=== PATIENT | female | born 1965 | race Caucasian/White ===

== ENCOUNTER → 2016-12-22 | Outpatient (CLI) | payer BC | LOC: BMCIMAGING 15:48 | PROVIDERS: ATTEND Nurse Practitioner Adult Health | DX: R06.02 Shortness of breath (principal); R53.83 Other fatigue; Z87.891 Personal history of nicotine dependence ==

== ENCOUNTER 2017-08-17 11:45 | Emergency (ER) | payer BC ==
[2017-08-17] MEDS ORDERED: ONDANSETRON 4 MG/2 ML VIAL IVP ONE ×2 (12:35→15:47)
[2017-08-17] MEDS ORDERED: NS 1,000 ML IV ONE (12:39)
--- NOTE | 2017-08-17 12:43 | CPEKG ---
Heart Rate: 104 RR Interval: 577 P-R Interval: 200 QRSD Interval: 88 QT Interval: 344 QTC Interval: 453 P [place]: 54 QRS [place]: -8 T Wave [place]: 194 EKG Severity - ABNORMAL ECG - EKG Impression: SINUS TACHYCARDIA EKG Impression: NONSPECIFIC REPOL ABNORMALITY, DIFFUSE LEADS Electronically Signed By: Coy Gonzalez 18-Aug-2017 08:05:39
[2017-08-17 12:45] LABS: PLATELET COUNT 292 10^3/uL (150-400)
--- NOTE | 2017-08-17 12:50 | EDPHY ---
HPI/HX/ROS/PE/MDM - Data Points Imaging: Discussed imaging studies w/ province archivist Radiologist, I viewed and interpreted images myself Narrative: CHIEF COMPLAINT: Abdominal pain, vomiting. HPI: This patient is a 52 year old female complaining of abdominal pain and vomiting. She has felt unwell for three days with a stomach ache. Her discomfort is primarily epigastric. She is unable to describe the quality of the pain. It is constant. She has associated nausea and vomiting. No hematemesis. She has had minimal bowel movements as she has not eaten much, but denies diarrhea, hematochezia, or melena. She denies fever. No recent international travel or unusual food consumption. REVIEW OF SYSTEMS: Aside from elements discussed in the HPI, a comprehensive 10-point review of systems was reviewed and is negative. PMH: Sinus surgery. Tonsillectomy. Colostomy in 1989 for perforated bowel. SOCIAL HISTORY: Daily tobacco use. PCP Dr. Anderson PHYSICAL EXAM: General:Patient is alert, in no acute distress. ENT:Eyes are normal to inspection. ENT inspection normal. Neck: Normal inspection. Full range of motion. Respiratory:No respiratory distress. Breath sounds normal bilaterally. Cardiovascular: Regular rate and rhythm. Strong peripheral pulses. Normal cap refill. Abdomen: Moderate epigastric pain. There are no peritoneal signs. There are normal bowel sounds. Back: Normal to inspection. No tenderness to palpation. Skin: Normal color. No rash. Warm and dry. Extremities: Normal appearance. Full range of motion. Neuro: Oriented x3. Normal motor function. Normal sensory function. (Michael Herrera) ED Course: 52 year old female presents with three day history of abdominal pain and vomiting. Moderate epigastric pain on exam. Plan for labs including CBC, chemistries, liver, lipase, BHCG. Plan to administer 30mg IV Toradol, 4mg IV Zofran, and 1L IV NS for symptom relief. Plan for EKG, x-ray abdomen. EKG was ordered and interpreted by myself. Please see [facility] system for official reading. 14:[address] abdomen/pelvis for further evaluation. (Michael Herrera) MDM: I assumed care of the patient at 3:40 a.m. pending an abdominal ultrasound. The patient's ultrasound demonstrates no evidence of cholecystitis. She does have cholelithiasis. I re-evaluated the patient and find no right upper quadrant tenderness. Her LFTs are normal. The patient tells me she does have mild intermittent nausea and vomiting and has Zofran at home. This point time I do feel the patient can be discharged home with instructions to continue Zofran. She is discharged home with customary abdominal pain aftercare instructions. (Herbert Le) - Data Points Imaging Results: Imaging Impressions Abdomen X-Ray 08/17/17 12:57 Impression: 1. Mild constipation, with an otherwise nonspecific bowel gas pattern. 2. Query mild hepatomegaly. Abdomen CT 08/17/17 14:05 Impression: 1. Minimal prominence of the common bile duct without intrahepatic biliary dilatation. 2. Cholelithiasis without evidence of cholecystitis. 3. Constipation 4. Short segment small bowel intussusception in the left abdomen, [a common self -limited] incidental finding on CT, without evidence of obstruction. 5. Additional findings as above. Findings discussed with Michael Herrera MD, 08/17/2017 at 15:40. Abdomen Ultrasound 08/17/17 15:45 Impression: 1. Cholelithiasis without evidence cholecystitis 2. Normal caliber of the visualized common bile duct on ultrasound. 3. Enlarged fatty liver. Findings discussed with Magdiel Le MD, 08/17/2017 at 16:30. Laboratory Results: Laboratory Results 08/17/17 12:26 08/17/17 12:26 08/17/17 08/17/17 08/17/17 12:26 12:26 12:26 WBC RBC Hgb Hct MCV MCH MCHC RDW Plt Count MPV Neut % (Auto) Lymph % (Auto) Weld % (Auto) Eos % (Auto) Baso % (Auto) Nucleat RBC Rel Count Absolute Neuts (auto) Absolute Lymphs (auto) Absolute Monos (auto) Absolute Eos (auto) Absolute Basos (auto) Absolute Nucleated RBC Immature Gran % Immature Gran # Sodium 141 mEq/L mEq/L (135-145) Potassium 3.4 mEq/L L mEq/L (3.5-5.2) Chloride 100 mEq/L mEq/L (97-110) Carbon Dioxide 26 mEq/l mEq/l (22-31) Anion Gap 15 mEq/L mEq/L (8-16) BUN 25 mg/dL H mg/dL (7-23) Creatinine 0.6 mg/dL mg/dL (0.6-1.0) Estimated GFR > 60 Glucose 208 mg/dL H mg/dL (70-100) Calcium 10.1 mg/dL mg/dL (8.5-10.4) Total Bilirubin 0.8 mg/dL mg/dL (0.1-1.4) Conjugated Bilirubin 0.4 mg/dL mg/dL (0.0-0.5) Unconjugated Bilirubin 0.4 mg/dL mg/dL (0.0-1.1) AST 30 IU/L IU/L (14-46) ALT 40 IU/L IU/L (9-52) Alkaline Phosphatase 93 IU/L IU/L (38-126) Total Protein 7.6 g/dL g/dL (6.3-8.2) Albumin 4.8 g/dL g/dL (3.5-5.0) Lipase 62 IU/L IU/L (23-300) Beta HCG, Qual NEGATIVE 08/17/17 12:26 WBC 13.87 10^3/uL H 10^3/uL (3.80-9.50) RBC 5.51 10^6/uL H 10^6/uL (4.18-5.33) Hgb 16.9 g/dL H g/dL (12.6-16.3) Hct 46.6 % % (38.0-47.0) MCV 84.6 fL fL (81.5-99.8) MCH 30.7 pg pg (27.9-34.1) MCHC 36.3 g/dL g/dL (32.4-36.7) RDW 11.5 % % (11.5-15.2) Plt Count 292 10^3/uL 10^3/uL (150-400) MPV 10.2 fL fL (8.7-11.7) Neut % (Auto) 81.9 % H % (39.3-74.2) Lymph % (Auto) 10.0 % L % (15.0-45.0) Weld % (Auto) 7.4 % % (4.5-13.0) Eos % (Auto) 0.0 % L % (0.6-7.6) Baso % (Auto) 0.2 % L % (0.3-1.7) Nucleat RBC Rel Count 0.0 % % (0.0-0.2) Absolute Neuts (auto) 11.36 10^3/uL H 10^3/uL (1.70-6.50) Absolute Lymphs (auto) 1.39 10^3/uL 10^3/uL (1.00-3.00) Absolute Monos (auto) 1.02 10^3/uL H 10^3/uL (0.30-0.80) Absolute Eos (auto) 0.00 10^3/uL L 10^3/uL (0.03-0.40) Absolute Basos (auto) 0.03 10^3/uL 10^3/uL (0.02-0.10) Absolute Nucleated RBC 0.00 10^3/uL 10^3/uL (0-0.01) Immature Gran % 0.5 % % (0.0-1.1) Immature Gran # 0.07 10^3/uL 10^3/uL (0.00-0.10) Sodium Potassium Chloride Carbon Dioxide Anion Gap BUN Creatinine Estimated GFR Glucose Calcium Total Bilirubin Conjugated Bilirubin Unconjugated Bilirubin AST ALT Alkaline Phosphatase Total Protein Albumin Lipase Beta HCG, Qual Medications Given: Discontinued Medications Sodium Chloride (Ns) 1,000 mls @ 0 mls/hr IV ONCE ONE PRN Reason: Wide Open Stop: 08/17/17 12:40 Last Admin: 08/17/17 12:48 Dose: 1,000 mls Ketorolac Tromethamine (Toradol) 15 mg IVP EDNOW ONE Stop: 08/17/17 13:00 Last Admin: 08/17/17 13:28 Dose: 15 mg Ketorolac Tromethamine (Toradol) 15 mg IVP EDNOW ONE Stop: 08/17/17 15:48 Last Admin: 08/17/17 16:33 Dose: 15 mg Ondansetron HCl (Zofran) 4 mg IVP EDNOW ONE Stop: 08/17/17 12:36 Last Admin: 08/17/17 12:39 Dose: 4 mg Ondansetron HCl (Zofran) 4 mg IVP EDNOW ONE Stop: 08/17/17 15:48 Last Admin: 08/17/17 16:31 Dose: 4 mg General Time Seen by Provider: 08/17/17 12:49 Initial Vital Signs: Initial Vital Signs Temperature (C) 36.5 C 08/17/17 11:54 Heart Rate 111 H 08/17/17 11:54 Respiratory Rate 19 08/17/17 11:54 Blood Pressure 187/145 H 08/17/17 11:54 O2 Sat (%) 96 08/17/17 11:54 O2 Delivery Mode Room Air Allergies/Adverse Reactions: No Known Allergies Allergy (Unverified 08/17/17 11:49) Home Medications: Medication Instructions Recorded Cogentin 08/17/17 Colace 08/17/17 Enlyte 08/17/17 Fetzima 08/17/17 Klonopin 08/17/17 Lisinopril 08/17/17 Metformin HCl 08/17/17 Ondansetron Odt [Zofran Odt] 4 mg PO Q4PRN PRN #20 tab 08/17/17 Ondansetron Odt [Zofran Odt] 4 mg PO Q4PRN PRN #20 tab 08/17/17 Prilosec 08/17/17 Synthroid 08/17/17 Tegretol 08/17/17 Vraylar 08/17/17 traZODone 08/17/17 Departure - Departure Disposition: Home, Routine, Self-Care Clinical Impression: Abdominal pain Condition: Good Instructions: Abdominal Pain (ED) Additional Instructions: Sometimes we are unable to diagnose an obvious cause of abdominal pain in the Emergency Department. Based upon our evaluation today, I believe your vomiting is secondary to a possible viral intestinal infection. Because more serious conditions can be difficult to diagnose early in the course of their presentation, we ask that you return to the Emergency Department in 8-12 hours for a recheck if you are still having pain. This is necessary to exclude the development of a more serious condition such as appendicitis or other intra- abdominal emergency. In the event your pain markedly increases before that time or you develop intractable vomiting or fever return to the Emergency Department immediately. Please continue Zofran as needed for nausea. Please follow-up with your primary care provider for any unimproved symptoms. I do recommend beginning Zantac 150 mg twice daily. This medication is available [id number]. Referrals: Swetha Anderson MD [Primary Care Provider] - As per Instructions Report Scribed for: Michael Herrera Report Scribed by: Cassy Lynn Date of Report: 08/17/17 Time of Report: 12:57 Physician Review and Approval Statement: Portions of this note were transcribed by an ED scribe. I personally performed the history, physical exam, and medical decision making; and confirm the accuracy of the information in the transcribed note.
[2017-08-17] MEDS ORDERED: KETOROLAC 30 MG/1 ML SDV IVP ONE ×2 (12:59→15:47)
[2017-08-17 13:36] VITALS: RESP 18; O2SAT 94
[2017-08-17] MEDS ORDERED: IOPAMIDOL (ISOVUE-300) 100 ML BTL ONE (14:19)
[2017-08-17 16:40] VITALS: BP 180/100; PULSE 97; TEMP 98.4
== END 2017-08-17 17:01 | disposition home or self-care (01) ==
DX: R10.13 Epigastric pain (principal); F17.200 Nicotine dependence, unspecified, uncomplicated
CPT/HCPCS: 96374; J1885; J2405; Q9967

== ENCOUNTER 2017-08-18 15:22 | Emergency (ER) | payer BC ==
[2017-08-18] MEDS ORDERED: HYDROmorphONE/DILAUDID 2 MG/ML INJ IVP ONE (15:42)
--- NOTE | 2017-08-18 16:33 | EDPHY ---
H & P Time Seen by Provider: 08/18/17 15:39 HPI/ROS: CHIEF COMPLAINT: Fatigue, nausea body admitting, body pain HISTORY OF PRESENT ILLNESS: The patient is a 50-year-old female who presents to the emergency department with ongoing symptoms. She was seen in the emergency department yesterday. She had a workup was told to return if her symptoms did not improve. She states she still has all of her symptoms. She complains of mild abdominal pain with nausea and vomiting. No hematemesis. She vomited once last evening. She states that she has diffuse"body pain."No fevers or chills. No shortness of breath or chest pain. No rash. Patient was also concerned because she has been having ongoing hypertension. She missed her hypertensive medications on Tuesday and Tuesday due to her vomiting. She states she took her medication yesterday. The patient states that the Zofran she was discharged with his not working. REVIEW OF SYSTEMS: My complete review of systems is negative except as mentioned in the HPI. Past Medical/Surgical History: Includes bowel perforation. Previous alcohol abuse Past surgical history: Sinus surgery, tonsillectomy, colostomy Social history: The patient states she smokes cigarettes. She denies drugs or alcohol Smoking Status: Current every day smoker Physical Exam: 36.6, 171/122, 99, 18, 94% on room air GENERAL: Well-appearing, in no acute distress, alert. HEENT: Eyes normal to inspection, normal pharynx, no signs of dehydration. NECK: No thyromegaly, no lymphadenopathy, supple. RESPIRATORY: Clear to auscultation bilaterally, no rales, rhonchi or wheezing. CVS: Regular rate and rhythm, no rubs, murmurs, or gallops. ABDOMEN: Soft, nontender, nondistended, no organomegaly. Benign BACK: Normal to inspection, no CVA tenderness. SKIN: Normal color, no rash, warm, dry. No pallor. EXTREMITIES: No pedal edema, no calf tenderness, no joint swelling. NEURO/PSYCH: Alert and oriented, normal mood and affect, normal motor sensory exam. Constitutional: Initial Vital Signs Temperature (C) 36.6 C 08/18/17 15:24 Heart Rate 99 08/18/17 15:24 Respiratory Rate 18 08/18/17 15:24 Blood Pressure 171/122 H 08/18/17 15:24 O2 Sat (%) 94 08/18/17 15:24 O2 Delivery Mode Room Air Allergies/Adverse Reactions: No Known Allergies Allergy (Verified 08/18/17 15:24) Home Medications: Medication Instructions Recorded Cogentin 08/17/17 Colace 08/17/17 Enlyte 08/17/17 Fetzima 08/17/17 Klonopin 08/17/17 Lisinopril 08/17/17 Metformin HCl 08/17/17 Ondansetron Odt [Zofran Odt] 4 mg PO Q4PRN PRN #20 tab 08/17/17 Ondansetron Odt [Zofran Odt] 4 mg PO Q4PRN PRN #20 tab 08/17/17 Prilosec 08/17/17 Synthroid 08/17/17 Tegretol 08/17/17 Vraylar 08/17/17 traZODone 08/17/17 Promethazine HCl [Phenergan 12.5mg 12.5 mg PO Q6 #7 tablet 08/18/17 tab] Medical Decision Making ED Course/Re-evaluation: In the emergency department I discussed plan with the patient. I answered all her questions. IV was placed. Laboratory studies were obtained. Patient was given normal saline 1 L IV for hydration. She is given Zofran 4 mg IV for nausea. I reviewed the patient's imaging studies from yesterday. CT scan showed minimal prominence of common bile duct without intrahepatic biliary dilatation. There is cholelithiasis without evidence of cholecystitis. She also had constipation. Patient had short-segment small-bowel intussusception in the left abdomen. States this is a common into the finding on CT without evidence of obstruction. I reviewed the patient's ultrasound. This also showed cholelithiasis without evidence of cholecystitis. There is a fatty liver. [place] [address]. Patient's white count was 11.7. Patient's hematocrit is 47. This is improved from yesterday. Patient's chemistry panel was unremarkable. was negative. 183: The patient is feeling better. On repeat exam she appeared well. Her abdomen soft, nontender nondistended. I discussed all results. I answered her questions. She requested medication different from Zofran because she did not feel that worked last evening. She is given a prescription for Phenergan. She is given warnings prior to leaving. She will return with worsening symptoms. Differential Diagnosis: My differential includes but is not limited to hypertension, hypertensive urgency, hypertensive emergency, viral illness, small-bowel obstruction, perforation, electrolyte abnormality, sugar abnormality - Data Points Laboratory Results: Laboratory Results 08/18/17 17:34 18 17:34 08/18/17 08/18/17 08/18/17 17:34 17:34 17:34 WBC 11.77 10^3/uL H 10^3/uL (3.80-9.50) RBC 5.66 10^6/uL H 10^6/uL (4.18-5.33) Hgb 17.3 g/dL H g/dL (12.6-16.3) Hct 47.7 % H % (38.0-47.0) MCV 84.3 fL fL (81.5-99.8) MCH 30.6 pg pg (27.9-34.1) MCHC 36.3 g/dL g/dL (32.4-36.7) RDW 11.4 % L % (11.5-15.2) Plt Count 286 10^3/uL 10^3/uL (150-400) MPV 9.9 fL fL (8.7-11.7) Neut % (Auto) 67.1 % % (39.3-74.2) Lymph % (Auto) 22.6 % % (15.0-45.0) [place] % (Auto) 9.2 % % (4.5-13.0) Eos % (Auto) 0.2 % L % (0.6-7.6) Baso % (Auto) 0.6 % % (0.3-1.7) Nucleat RBC Rel Count 0.0 % % (0.0-0.2) Absolute Neuts (auto) 7.90 10^3/uL H 10^3/uL (1.70-6.50) Absolute Lymphs (auto) 2.66 10^3/uL 10^3/uL (1.00-3.00) Absolute Monos (auto) 1.08 10^3/uL H 10^3/uL (0.30-0.80) Absolute Eos (auto) 0.02 10^3/uL L 10^3/uL (0.03-0.40) Absolute Basos (auto) 0.07 10^3/uL 10^3/uL (0.02-0.10) Absolute Nucleated RBC 0.00 10^3/uL 10^3/uL (0-0.01) Immature Gran % 0.3 % % (0.0-1.1) Immature Gran # 0.04 10^3/uL 10^3/uL (0.00-0.10) Sodium 137 mEq/L mEq/L (135-145) Potassium 3.5 mEq/L mEq/L (3.5-5.2) Chloride 97 mEq/L mEq/L (97-110) Carbon Dioxide 27 mEq/l mEq/l (22-31) Anion Gap 13 mEq/L mEq/L (8-16) BUN 22 mg/dL mg/dL (7-23) Creatinine 0.7 mg/dL mg/dL (0.6-1.0) Estimated GFR > 60 Glucose 141 mg/dL H mg/dL (70-100) Calcium 9.7 mg/dL mg/dL (8.5-10.4) Total Bilirubin 0.8 mg/dL mg/dL (0.1-1.4) Conjugated Bilirubin 0.3 mg/dL mg/dL (0.0-0.5) Unconjugated Bilirubin 0.5 mg/dL mg/dL (0.0-1.1) AST 30 IU/L IU/L (14-46) ALT 47 IU/L IU/L (9-52) Alkaline Phosphatase 88 IU/L IU/L (38-126) Total Protein 7.3 g/dL g/dL (6.3-8.2) Albumin 4.7 g/dL g/dL (3.5-5.0) Lipase 100 IU/L IU/L (23-300) Beta HCG, Qual NEGATIVE Medications Given: Discontinued Medications Hydromorphone HCl (Dilaudid) 0.5 mg IVP EDNOW ONE Stop: 08/18/17 15:43 Last Admin: 08/18/17 15:43 Dose: Not Given Sodium Chloride (Ns) 500 mls @ 0 mls/hr IV EDNOW ONE; Wide Open PRN Reason: Protocol Stop: 08/18/17 17:08 Last Admin: 08/18/17 17:37 Dose: 500 mls Departure - Departure Disposition: Home, Routine, Self-Care Clinical Impression: Body aches Nausea & vomiting Qualifiers: Vomiting type: unspecified Vomiting Intractability: non-intractable Qualified Code(s): R11.2 - Nausea with vomiting, unspecified Abdominal pain Qualifiers: Abdominal location: generalized Qualified Code(s): R10.84 - Generalized abdominal pain Condition: Good Instructions: Acute Nausea and Vomiting (ED) Additional Instructions: Return with increasing pain, repeated vomiting, or any other concerns. Referrals: Swetha Anderson MD [Primary Care Provider] - As per Instructions Prescriptions: Promethazine HCl [Phenergan 12.5mg tab] 12.5 mg PO Q6 #7 tablet
[2017-08-18] MEDS ORDERED: NS 500 ML IV ONE (17:07)
[2017-08-18 17:45] LABS: PLATELET COUNT 286 10^3/uL (150-400)
[2017-08-18 18:56] VITALS: BP 170/82
== END 2017-08-18 18:56 | disposition home or self-care (01) ==
DX: R11.2 Nausea with vomiting, unspecified (principal); E86.9 Volume depletion, unspecified; F17.210 Nicotine dependence, cigarettes, uncomplicated; R10.84 Generalized abdominal pain

== ENCOUNTER 2017-08-27 14:10 | Inpatient (IN) | payer BC ==
[2017-08-27] MEDS ORDERED: NS 1,000 ML IV ONE ×2 (14:20→15:16)
--- NOTE | 2017-08-27 14:30 | CPEKG ---
Heart Rate: 126 RR Interval: 476 P-R Interval: 160 QRSD Interval: 104 QT Interval: 308 QTC Interval: 446 P Austin: -62 QRS [place]: -10 T Wave [place]: 194 EKG Severity - ABNORMAL ECG - EKG Impression: SINUS OR ECTOPIC ATRIAL TACHYCARDIA EKG Impression: PROBABLE LVH WITH SECONDARY REPOL ABNRM EKG Impression: EKG shows sinus tachycardia with a rate of 126, left axis, LVH, nonspecific EKG Impression: T-wave abnormality Re pole abnormality. No signs of acute infarct or ischemia. EKG Impression: Impression abnormal, nonspecific EKG. Electronically Signed By: Lauren Carter 30-Aug-2017 06:05:30
--- NOTE | 2017-08-27 14:33 | EDPHY ---
General - History Smoking Status: Current every day smoker Time Seen by Provider: 08/27/17 14:22 Narrative: CHIEF COMPLAINT: High blood pressure, nausea vomiting HISTORY OF PRESENT ILLNESS: Patient presents by EMS and is seen at time of arrival. She complains of some recent nausea and vomiting with epigastric discomfort. She has had some constipation but no diarrhea. At this time she denies any abdominal pain or any complaints of any kind as her nausea is improved throughout the day. She arrives from [facility] with reports of high blood pressure over the past 2 weeks. She has had systolic measurements in the 170-1 days. She has had diastolic measurement the size 130 mm mercury. She has no complaints of headache. No chest pain. No shortness of breath. No cough. No sore throat. She has had some malaise, fatigue and mild myalgia. She has been evaluated here twice on August 17 August 18 for her abdominal complaints. She had laboratory studies, CT scan of the abdomen, ultrasound the abdomen. No definitive diagnosis. Medications she was discharged with were helping her nausea vomiting. No other associated complaints or modifying factors. REVIEW OF SYSTEMS: Ten systems reviewed and are negative unless otherwise noted in the HPI PCP: Dr. Anderson SPECIALISTS: Mental health professional PAST MEDICAL HISTORY: Hypertension, bipolar disorder PAST SURGICAL HISTORY: No recent surgeries SOCIAL HISTORY: Daily smoker. No drug or alcohol use FAMILY HISTORY: Noncontributory EXAMINATION General Appearance: Alert, no distress Head: normocephalic, atraumatic Eyes: Pupils equal and round, no conjunctival pallor or injection ENT, Mouth: Mucous membranes moist Neck: Normal inspection, supple, non-tender Respiratory: Lungs are clear to auscultation Cardiovascular: Tachycardic rate. Regular rhythm. No murmur. Gastrointestinal: Abdomen is soft and nondistended. No tympany rigidity. Mild epigastric tenderness. Back: non-tender, no bony abnormalities Neurological: A&O, nonfocal, normal gait Skin: Warm and dry, no rash no petechiae or purpura Extremities: Nontender, no pedal edema Psychiatric: Mood and affect normal DIFFERENTIAL DIAGNOSES: Including but not limited to pancreatitis, cholecystitis, cholelithiasis, ACS, PE, influenza, viral illness MDM: 2:20 p.m. Mild nausea but no vomiting. No complaints of pain at this time. She does have generalized malaise and fatigue. She has had recent complaints of nausea vomiting with 2 evaluations here on August 17 and . No trauma or injury. She denies any drug or alcohol use. No chest pain of any kind. Vital signs reveal tachycardia and hypertension but no headache. No chest pain. 3:15 p.m. Case discussed with Dr. Xiong. She will evaluate the patient. 3:45 p.m. Patient has been evaluated by Dr. Xiong. She recommends D-dimer and chest x- ray due to some dyspnea on exertion. Laboratory studies do reveal evidence of urinary tract infection, she recommends treatment with IV Rocephin. Troponin is very slightly elevated. CBC is unremarkable. Liver function test minimally abnormal. I have ordered urinary culture and IV Rocephin. 4:15 p.m. D-dimer negative. Chest x-ray unremarkable. Patient's heart rate has minimally improved with IV fluid. I do feel that she will need admission to the hospital for further evaluation. 4:30 p.m. I discussed case with the hospitalist Dr. Wang. She will admit the patient to her service. She is admitted in stable condition. Admitted for urinary tract infection, dehydration, abnormal troponin. SUPERVISION: Patient was evaluated and examined in conjunction with my secondary supervising physician as documented. We have both examined the patient. (Bert Trujillo) PHYSICIAN DOCUMENTATION: The patient initially seen and evaluated by KEON Levi with complaint of nausea vomiting. Please see their dictation for complete details. Additionally I obtained the following history: Patient with some shortness of breath also dysuria. Persistent systems and has been seen several times in the emergency department On my examination I found the following: Patient ill appearing, tachycardic. Very abnormal UA. EKG shows sinus tachycardia with a rate of 126. Left axis, nonspecific T-wave changes diffusely. Probable LVH. No signs of acute infarct or ischemia. Impression abnormal, nonspecific EKG. The midlevel and I discussed the care and disposition of the patient. I authorize my typed signature that I authenticated this report. (Larisa Xiong) - Diagnostics Imaging Results: Imaging Impressions Chest X-Ray 08/27/17 15:44 Impression: No acute abnormality, or substantial change from 12/22/2016. - Objective Vital Signs: Initial Vital Signs Temperature (C) 37 C 08/27/17 14:21 Heart Rate 115 H 08/27/17 14:21 Respiratory Rate 18 14/18 14:21 Blood Pressure 139/100 H 08/27/17 14:21 O2 Sat (%) 95 08/27/17 14:21 O2 Delivery Mode Room Air Allergies/Adverse Reactions: bee venom protein (honey bee) Allergy (Verified 08/27/17 14:21) Home Medications: Medication Instructions Recorded Benztropine Mesylate [Cogentin 1 mg PO BID 08/27/17 (RX)] Cariprazine HCl [Vraylar] 1.5 mg PO HS 08/27/17 Docusate Sodium [Colace 100 MG (*)] 100 mg PO BID 08/27/17 Levomilnacipran HCl [Fetzima] 20 mg PO DAILY 08/27/17 Levomilnacipran HCl [Fetzima] 40 mg PO DAILY 08/27/17 Levothyroxine [Synthroid 25 mcg 25 mcg PO DAILY06 08/27/17 (*)] Lisinopril [Zestril 20 mg (*)] 20 mg PO DAILY 08/27/17 Metformin HCl [Metformin 1000 mg] 1,000 mg PO BIDMEAL 08/27/17 Omeprazole 20 mg PO HS 08/27/17 Promethazine HCl [Phenergan 12.5mg 12.5 mg PO Q6 PRN 08/27/17 tab] carBAMazepine [Tegretol] 200 mg PO BID 08/27/17 clonazePAM [Clonazepam] 1.5 mg PO HS 08/27/17 traZODone [traZODONE 100MG (*)] 200 mg PO HS 08/27/17 Laboratory Results: Laboratory Results 08/27/17 14:40 08/27/17 14:40 08/27/17 08/27/17 08/27/17 14:40 14:40 14:40 WBC 8.18 10^3/uL 10^3/uL (3.80-9.50) RBC 5.46 10^6/uL H 10^6/uL (4.18-5.33) Hgb 16.8 g/dL H g/dL (12.6-16.3) Hct 46.0 % % (38.0-47.0) MCV 84.2 fL fL (81.5-99.8) MCH 30.8 pg pg (27.9-34.1) MCHC 36.5 g/dL g/dL (32.4-36.7) RDW 11.5 % % (11.5-15.2) Plt Count 236 10^3/uL 10^3/uL (150-400) MPV 10.8 fL fL (8.7-11.7) Neut % (Auto) 79.5 % H % (39.3-74.2) Lymph % (Auto) 14.4 % L % (15.0-45.0) Mcdonald % (Auto) 5.4 % % (4.5-13.0) Eos % (Auto) 0.1 % L % (0.6-7.6) Baso % (Auto) 0.4 % % (0.3-1.7) Nucleat RBC Rel Count 0.0 % % (0.0-0.2) Absolute Neuts (auto) 6.50 10^3/uL 10^3/uL (1.70-6.50) Absolute Lymphs (auto) 1.18 10^3/uL 10^3/uL (1.00-3.00) Absolute Monos (auto) 0.44 10^3/uL 10^3/uL (0.30-0.80) Absolute Eos (auto) 0.01 10^3/uL L 10^3/uL (0.03-0.40) Absolute Basos (auto) 0.03 10^3/uL 10^3/uL (0.02-0.10) Absolute Nucleated RBC 0.00 10^3/uL 10^3/uL (0-0.01) Immature Gran % 0.2 % % (0.0-1.1) Immature Gran # 0.02 10^3/uL 10^3/uL (0.00-0.10) D-Dimer Sodium 135 mEq/L mEq/L (135-145) Potassium 3.8 mEq/L mEq/L (3.5-5.2) Chloride 92 mEq/L L mEq/L (97-110) Carbon Dioxide 27 mEq/l mEq/l (22-31) Anion Gap 16 mEq/L mEq/L (8-16) BUN 15 mg/dL mg/dL (7-23) Creatinine 0.7 mg/dL mg/dL (0.6-1.0) Estimated GFR > 60 Glucose 153 mg/dL H mg/dL (70-100) Calcium 9.2 mg/dL mg/dL (8.5-10.4) Total Bilirubin 1.0 mg/dL mg/dL (0.1-1.4) Conjugated Bilirubin 0.7 mg/dL H mg/dL (0.0-0.5) Unconjugated Bilirubin 0.3 mg/dL mg/dL (0.0-1.1) AST 43 IU/L IU/L (14-46) ALT 53 IU/L H IU/L (9-52) Alkaline Phosphatase 86 IU/L IU/L (38-126) Troponin I 0.040 ng/mL H ng/mL (0.000-0.034) Total Protein 6.9 g/dL g/dL (6.3-8.2) Albumin 4.3 g/dL g/dL (3.5-5.0) Lipase 58 IU/L IU/L (23-300) TSH Beta HCG, Qual NEGATIVE Specimen Hemolysis 112 Urine Color Urine Appearance Urine pH Ur Specific [place] Urine Protein Urine Ketones Urine Blood Urine Nitrate Urine Bilirubin Urine Urobilinogen Ur Leukocyte Esterase Urine RBC Urine WBC Ur Epithelial Cells Hyaline Casts Urine Mucus Urine Glucose Nasal Influenza A PCR Nasal Influenza B PCR Urine Opiates Screen Urine Barbiturates Ur Phencyclidine Scrn Ur Amphetamine Screen U Benzodiazepines Scrn Urine Cocaine Screen U Marijuana (THC) Screen Ethyl Alcohol < 10 mg/dL mg/dL (0-10) RSV (PCR) 08/27/17 08/27/17 08/27/17 14:30 14:15 14:15 WBC RBC Hgb Hct MCV MCH MCHC RDW Plt Count MPV Neut % (Auto) Lymph % (Auto) Mcdonald % (Auto) Eos % (Auto) Baso % (Auto) Nucleat RBC Rel Count Absolute Neuts (auto) Absolute Lymphs (auto) Absolute Monos (auto) Absolute Eos (auto) Absolute Basos (auto) Absolute Nucleated RBC Immature Gran % Immature Gran # D-Dimer Sodium Potassium Chloride Carbon Dioxide Anion Gap BUN Creatinine Estimated GFR Glucose Calcium Total Bilirubin Conjugated Bilirubin Unconjugated Bilirubin AST ALT Alkaline Phosphatase Troponin I Total Protein Albumin Lipase TSH Beta HCG, Qual Specimen Hemolysis Urine Color RIC Urine Appearance MODERATELY TURBID Urine pH 6.0 (5.0-7.5) Ur Specific [place] 1.021 (1.002-1.030) Urine Protein 1+ H (NEGATIVE) Urine Ketones 2+ H (NEGATIVE) Urine Blood NEGATIVE (NEGATIVE) Urine Nitrate NEGATIVE (NEGATIVE) Urine Bilirubin NEGATIVE (NEGATIVE) Urine Urobilinogen NEGATIVE EU EU (0.2-1.0) Ur Leukocyte Esterase 3+ H (NEGATIVE) Urine RBC 10-15 /hpf H /hpf (0-3) Urine WBC 50-182 /hpf H /hpf (0-3) Ur Epithelial Cells TRACE /lpf /lpf (NONE-1+) Hyaline Casts 25-50 /lpf H /lpf (0-1) Urine Mucus 2+ /lpf H /lpf (NONE-1+) Urine Glucose NEGATIVE (NEGATIVE) Nasal Influenza A PCR NEGATIVE FOR FLU A (NEGATIVE) Nasal Influenza B PCR NEGATIVE FOR FLU B (NEGATIVE) Urine Opiates Screen NEGATIVE (NEGATIVE) Urine Barbiturates NEGATIVE (NEGATIVE) Ur Phencyclidine Scrn NEGATIVE (NEGATIVE) Ur Amphetamine Screen NEGATIVE (NEGATIVE) U Benzodiazepines Scrn NEGATIVE (NEGATIVE) Urine Cocaine Screen NEGATIVE (NEGATIVE) U Marijuana (THC) Screen NON-NEGATIVE H (NEGATIVE) Ethyl Alcohol RSV (PCR) NEGATIVE FOR RSV (NEGATIVE) 08/27/17 08/27/17 13:48 13:48 WBC RBC Hgb Hct MCV MCH MCHC RDW Plt Count MPV Neut % (Auto) Lymph % (Auto) Mcdonald % (Auto) Eos % (Auto) Baso % (Auto) Nucleat RBC Rel Count Absolute Neuts (auto) Absolute Lymphs (auto) Absolute Monos (auto) Absolute Eos (auto) Absolute Basos (auto) Absolute Nucleated RBC Immature Gran % Immature Gran # D-Dimer 0.40 ug/mLFEU ug/mLFEU (0.00-0.50) Sodium Potassium Chloride Carbon Dioxide Anion Gap BUN Creatinine Estimated GFR Glucose Calcium Total Bilirubin Conjugated Bilirubin Unconjugated Bilirubin AST ALT Alkaline Phosphatase Troponin I Total Protein Albumin Lipase TSH 0.974 uIU/mL uIU/mL (0.465-4.680) Beta HCG, Qual Specimen Hemolysis Urine Color Urine Appearance Urine pH Ur Specific [place] Urine Protein Urine Ketones Urine Blood Urine Nitrate Urine Bilirubin Urine Urobilinogen Ur Leukocyte Esterase Urine RBC Urine WBC Ur Epithelial Cells Hyaline Casts Urine Mucus Urine Glucose Nasal Influenza A PCR Nasal Influenza B PCR Urine Opiates Screen Urine Barbiturates Ur Phencyclidine Scrn Ur Amphetamine Screen U Benzodiazepines Scrn Urine Cocaine Screen U Marijuana (THC) Screen Ethyl Alcohol RSV (PCR) Medications Given: Potassium Chloride/Sodium Chloride (Ns W/ 20 Kcl/L) 1,000 mls @ 125 mls/hr IV CONT PARDEEP Stop: 08/28/17 18:29 Last Admin: 08/27/17 18:49 Dose: 1,000 mls Lorazepam (Ativan) 0.5 - 1 mg PO Q8HRS PRN PRN Reason: Anxiety, Able to Take PO Stop: 02/23/18 18:20 Last Admin: 08/27/17 19:26 Dose: 1 mg Metoprolol Tartrate (Lopressor Injection) 5 mg IVP Q6HRS PRN PRN Reason: SBP Greater Than 160 Stop: 02/24/18 00:00 Last Admin: 08/27/17 19:26 Dose: 5 mg Ondansetron HCl (Zofran Odt) 4 mg PO Q4HRS PRN PRN Reason: Nausea/Vomiting, Use 1st Stop: 02/23/18 18:20 Last Admin: 08/27/17 19:25 Dose: 4 mg Discontinued Medications Sodium Chloride (Ns) 1,000 mls @ 0 mls/hr IV EDNOW ONE; Wide Open PRN Reason: Protocol Stop: 08/27/17 14:21 Last Admin: 08/27/17 15:00 Dose: 1,000 mls Sodium Chloride (Ns) 1,000 mls @ 0 mls/hr IV EDNOW ONE; Wide Open PRN Reason: Protocol Stop: 08/27/17 15:17 Last Admin: 08/27/17 15:50 Dose: 1,000 mls Ceftriaxone Sodium/Dextrose (Rocephin 1 Gm (Premix)) 50 mls @ 100 mls/hr IV EDNOW ONE PRN Reason: Protocol Stop: 08/27/17 16:16 Last Admin: 08/27/17 15:53 Dose: 50 mls Departure - Departure Disposition: [facility] Acute Clinical Impression: Dehydration, Elevated troponin UTI (urinary tract infection) Qualifiers: Urinary tract infection type: site unspecified Hematuria presence: with hematuria Qualified Code(s): N39.0 - Urinary tract infection, site not specified Condition: Good
[2017-08-27 14:50] LABS: PLATELET COUNT 236 10^3/uL (150-400)
--- NOTE | 2017-08-27 17:30 | PDGENHP ---
History and Physical History and Physical: Chief complaint: Hypertension, nausea History of present illness: Pt is a 52yo F who was sent here by her outpatient physician at [facility] for extremely high blood pressure with DBP of 125. She has been feeling tired and generally weak x 2 weeks. She has had loss of appetite for weeks because she had nausea and vomiting. She does not currently have abdominal pain, but did have some midepigastric pain the other day from dry heaving. Symptoms are better with Ativan. Symptoms are worse with nothing. She thought she might have a UTI and admits to urinary urgency, but no other symptoms. Denies fever/chills. Past medical history: Hypertension, bipolar disorder, heterozygous factor 5 Leiden mutation. Past surgical history: Repair of perforated bowel in 1989. Reversal of colostomy. Medications: Please see medication reconciliation form. Allergies: Bees. Social history: Smokes 8 cigarettes a day. Denies alcohol or drug use. Lives alone. Came from [facility]. Has a sister Diana. Unemployed. Family history: Father had cardiac issues in his 50s, also Prinzmetal angina and factor 5 Leiden. Review of systems: 10 point review of systems was conducted and is negative except per HPI Physical exam: Vitals: Reviewed General: The patient is a female who is alert and in no acute distress. HEENT: normocephalic, extraocular movements intact, conjunctivae clear, no lesions on face. Mucous membranes moist. Neck: trachea midline, no visible masses, no external lesions. CV: +S1/S2, RRR, no MRG. Resp: unlabored, CTAB no RRW. Abd: soft and nondistended. Bowel sounds present. Mild tenderness to superficial palpation throughout. No rebound tenderness or guarding. +right upper quadrant tenderness to deep palpation. Negative McBurney point. Musculoskeletal: Normal muscle tone and bulk. Neuro: cranial nerves II XII grossly intact. Intact gross motor and sensory function. Psych: appropriate mood/affect. Skin: No pallor. Heme/lymph: No peripheral edema. Labs: WBC 8.1 hemoglobin 16.8 platelets 236 sodium 135 potassium 3.8 chloride 90 to BUN 15 creatinine 0.7 glucose 153. AST 43 ALT 53. Troponin I 0.040, 0.046. Other Data: EKG-sinus tachycardia, LVH with probable early repolarization. Impression and plan: Accelerated/uncontrolled hypertension LVH -Continue home HTN medication. -No focal deficits noted on exam to indicate a CVA. -prn HTN meds. Consider to add another blood pressure agent to her regimen prior discharge if blood pressure continues to be elevated. -Trend troponins. Acute UTI -IV Ceftriaxone -culture sent. Intractable nausea and vomiting -IV fluid hydration. -Clear liquid diet. Constipation -unclear etiology. Pt does have gallstones - consider HIDA scan as an outpatient. -Reviewed recent KUB, abd US, CT abd/pelvis. -Check KUB in AM to eval status of constipation. Bipolar disorder -continue home meds. Code status - full. VTE ppx - ambulatory, does not need. Observation status.
--- NOTE | 2017-08-27 17:50 | ASMTCMCOM ---
CM Note CM Note Notes: Pt presented to the Emergency Department with nausea, vomiting,epigastric pain and HTN today. Per MD notes, pt was admitted for further eval and treatment of a UTI, dehydration and an abnormal troponin. Pt was recently seen on 08/17 and 08/18 in the ED for similar complaints. Pt was transferred to [facility] by EMS from the [facility]. The [facility] is a residential care center for people with mental illness. Discharge needs remain unclear at this time. CM will continue to follow. Current Discharge Plan: To be determined Date Signed: 08/27/2017 05:50 PM Electronically Signed By:Juliana Noel RN
[2017-08-27] MEDS ORDERED: ACETAMINOPHEN 325 MG TAB PO PRN (18:21)
[2017-08-27] MEDS ORDERED: ENALAPRILAT DIHYDRATE 1.25 MG/ML VIAL IVP PRN (18:31)
[2017-08-27] MEDS: NS W/ 20 KCl/L 1,000 ML IV SCH (18:49)
[2017-08-27] MEDS: ONDANSETRON DISINTEGRATING 4 MG TAB PO PRN (19:25)
[2017-08-27] MEDS: LORazepam 0.5 MG TAB PO PRN (19:26)
[2017-08-27] MEDS: METOPROLOL TARTRATE 5 MG/5 ML INJ IVP PRN (19:26)
[2017-08-27] MEDS ORDERED: Cariprazine Hcl [Vraylar] 1.5 MG PO SCH (21:00)
[2017-08-27] MEDS: PANTOPRAZOLE SODIUM 40 MG TAB PO SCH (21:54)
[2017-08-27] MEDS: DOCUSATE SODIUM 100 MG CAP PO SCH (21:54)
[2017-08-27] MEDS: carBAMazepine 200 MG TAB PO SCH (21:54)
[2017-08-27] MEDS: traZODone 100 MG TAB PO SCH (21:55)
[2017-08-27] MEDS: BENZTROPINE MESYLATE 1 MG TAB PO SCH (21:55)
[2017-08-27] MEDS: clonazePAM 1 MG TAB PO SCH (21:56)
[2017-08-28] MEDS: NS W/ 20 KCl/L 1,000 ML IV SCH (02:27)
[2017-08-28 04:22] LABS: PLATELET COUNT 154 10^3/uL (150-400)
[2017-08-28] MEDS: LEVOTHYROXINE 25 MCG TAB PO SCH (05:33)
[2017-08-28] MEDS: ONDANSETRON DISINTEGRATING 4 MG TAB PO PRN ×2 (05:55→11:39)
[2017-08-28] MEDS: LORazepam 0.5 MG TAB PO PRN (05:57)
[2017-08-28] MEDS: PROMETHAZINE HCL 25 MG/ML INJ IVP PRN (08:45)
[2017-08-28] MEDS ORDERED: LISINOPRIL 20 MG TAB PO SCH (09:00)
[2017-08-28] MEDS ORDERED: SENNOSIDES 1 TAB PO SCH (09:30)
--- NOTE | 2017-08-28 09:59 | HOSPPROG ---
Hospitalist Progress Note Assessment/Plan: Accelerated/uncontrolled hypertension - poor control this am, but no symptoms -increased lisinopril -add norvasc -prn metoprolol / hydral ?UTI - pyuria on UA, polymicrobial UCx -cont Ceftriaxone today, await Cx data Intractable nausea and vomiting - cholelithiasis noted on prior u/s and CT -check KUB - no e/o obstructive process, +gallstones noted -HIDA in am -cont PPI -prn anti-emetics -may warrant GI eval if HIDA normal and symptoms not improving Bipolar disorder - mental health status is quite debilitated. Lives at [facility]. Psychiatrist is Dr. Louann Finley (cell: [phone]) -cont outpt meds -check tegretol level Hypokalemia - replace, protocol ordered Constipation -bowel regimen Code status - full. VTE ppx - SCD's, ambulation Dispo - change to inpt for ongoing evaluation and management of nausea/vomiting and hypertension. Will d/c back to [facility] when ready. Subjective: Pt doing ok, says her N/V is better, but later RN reported ongoing vomiting. She is timid, possibly paranoid. No fevers/chills. Endorsed urinary frequency, no dysuria. Has had some epigastric / RUQ abdominal pain. No CP or SOB. Objective: Vital Signs Temp Pulse Resp BP Pulse Ox 37.1 C 97 18 159/114 H 94 08/28/17 08:36 08/28/17 08:36 08/28/17 08:36 08/28/17 08:36 08/28/17 08:36 Laboratory Results 08/28/17 03:50 08/27/17 08/28/17 08/29/17 05:59 05:59 05:59 Intake Total 4498 55 Output Total 60 Balance 4498 -5 - Physical Exam Constitutional: no apparent distress Eyes: PERRL Ears, Nose, Mouth, Throat: moist mucous membranes Cardiovascular: regular rate and rhythym Respiratory: no respiratory distress, clear to auscultation Gastrointestinal: normoactive bowel sounds, other (soft, nd, +RUQ TTP, no r/r/g) Skin: warm Musculoskeletal: full muscle strength Neurologic: AAOx3 Psychiatric: flat affect, poor insight ICD10 Worksheet Patient Problems: Problems Problem Status Onset Dehydration Acute Elevated troponin Acute UTI (urinary tract infection) Acute
[2017-08-28] MEDS: DOCUSATE SODIUM 100 MG CAP PO SCH ×2 (10:18→23:26)
[2017-08-28] MEDS: BENZTROPINE MESYLATE 1 MG TAB PO SCH ×2 (10:18→23:26)
[2017-08-28] MEDS: SENNOSIDES 1 TAB PO SCH ×2 (10:18→23:17)
[2017-08-28] MEDS: LISINOPRIL 20 MG TAB PO SCH (10:19)
[2017-08-28] MEDS: carBAMazepine 200 MG TAB PO SCH (10:19)
[2017-08-28] MEDS: LEVOMILNACIPRAN HCL 20 MG PO SCH (10:23)
[2017-08-28] MEDS: LEVOMILNACIPRAN HCL 40 MG PO SCH (10:24)
[2017-08-28] MEDS ORDERED: PROTOCOL POTASSIUM 1 DOSE MISC PRN (11:24)
[2017-08-28] MEDS ORDERED: POTASSIUM CL 10 MEQ TAB PO ONE (12:15)
[2017-08-28] MEDS: POTASSIUM Cl (KCl) 40 MEQ in NS 1,000 ML IV SCH ×2 (12:57→23:25)
[2017-08-28] MEDS ORDERED: diphenhydrAMINE 25 MG CAP PO PRN (13:30)
[2017-08-28] MEDS ORDERED: LORazepam 1 MG TAB PO PRN (13:30)
[2017-08-28] MEDS: POTASSIUM Cl (KCl) 100 ML IV SCH ×3 (14:18→18:16)
--- NOTE | 2017-08-28 15:58 | PDMN ---
Medical Necessity Medical necessity: C/M review: Patient meets INPT criteria under MCG M-197 Hypertension, M-370 Vomiting: Acute and persistent accelerated hypertension 189 /134 - mid 160's/115-121, even with oral antihypertensive medications, intractable nausea, vomiting, epigastric / RUQ abdominal pain, indeterminate troponin 0.04, EKG showed mild ST depression in inferior and lateral leads, hypokalemia, K 3.1 08/28/2017, possible urinary tract infection - pyruia on UA, polymicrobial urine culture, await culture date, requiring IV Metropolol 2017, IV Vasotec 08/28/2017, IV KCL repletion 08/28/2017, planned HIDA scan 2017, repeat EKG, consider possible nuclear stress prior to discharge for further risk stratification, ongoing IV Ceftriaxone QD, IV NS with 40 meq KCL 100 ml/hr. infusion, cardiac monitoring, comorbid bipolar disorder, constipation. MD anticipates > 2 MN LOS for ongoing med nec for eval and TX of above.
[2017-08-28] MEDS: amLODIPine BESYLATE 5 MG TAB PO SCH (16:49)
[2017-08-28] MEDS ORDERED: PNEUMOCOCCAL 0.5ML VACCINE VIAL IM ONE (16:53)
[2017-08-28] MEDS: POTASSIUM Cl (KCl) 10 MEQ in NS 100 ML IV SCH ×3 (18:08→23:37)
--- NOTE | 2017-08-28 20:02 | CPEKG ---
Heart Rate: 101 RR Interval: 594 P-R Interval: 188 QRSD Interval: 90 QT Interval: 356 QTC Interval: 462 P [place]: 38 QRS [place]: 17 T Wave [place]: 169 EKG Severity - BORDERLINE ECG - EKG Impression: SINUS TACHYCARDIA EKG Impression: BORDERLINE T ABNORMALITIES, LATERAL LEADS EKG Impression: Possible left atrial abnormality EKG Impression: No significant change from August 27, 2017 Electronically Signed By: Tk Pompa 29-Aug-2017 07:05:39
[2017-08-28] MEDS ORDERED: carBAMazepine 200 MG TAB PO ONE ×2 (21:00→23:30)
[2017-08-28] MEDS: PANTOPRAZOLE SODIUM 40 MG TAB PO SCH (23:17)
[2017-08-28] MEDS: clonazePAM 1 MG TAB PO SCH (23:17)
[2017-08-28] MEDS: traZODone 100 MG TAB PO SCH (23:18)
[2017-08-28] MEDS: CARIPRAZINE HCL 3 MG PO SCH (23:20)
[2017-08-29] MEDS: POTASSIUM Cl (KCl) 10 MEQ in NS 100 ML IV SCH (01:09)
[2017-08-29] MEDS: LEVOTHYROXINE 25 MCG TAB PO SCH (06:00)
[2017-08-29] MEDS: DOCUSATE SODIUM 100 MG CAP PO SCH ×2 (08:36→22:54)
[2017-08-29] MEDS: LORazepam 0.5 MG TAB PO PRN ×2 (08:36→21:17)
[2017-08-29] MEDS: BENZTROPINE MESYLATE 1 MG TAB PO SCH ×2 (08:37→23:00)
[2017-08-29] MEDS: SENNOSIDES 1 TAB PO SCH ×2 (08:37→22:55)
[2017-08-29] MEDS: CHOLECALCIFEROL VIT D3 2,000 UNITS TAB/CAP PO SCH (08:37)
[2017-08-29] MEDS: LISINOPRIL 20 MG TAB PO SCH (08:37)
[2017-08-29] MEDS: amLODIPine BESYLATE 5 MG TAB PO SCH (08:38)
[2017-08-29] MEDS: LEVOMILNACIPRAN HCL 20 MG PO SCH (08:44)
[2017-08-29] MEDS: LEVOMILNACIPRAN HCL 40 MG PO SCH (08:44)
[2017-08-29] MEDS ORDERED: CHOLECALCIFEROL 4000 UNIT PO SCH (09:00)
--- NOTE | 2017-08-29 12:37 | HOSPPROG ---
Hospitalist Progress Note Assessment/Plan: DIAGNOSES: Intractable nausea and vomiting - cholelithiasis noted on x-ray, and has delayed filling on HIDA scan * symptoms persist at this time; it appears that cholecystectomy is indicated, but I have ordered ultrasound to clarify better whether it is inflammatory change or a stone causing the delayed filling of gallbladder * I have reviewed the case with Dr. Angel from surgery who will see her; I did review with him that we are further assessing her EKGs Accelerated/uncontrolled hypertension - blood pressure is much better now * increased lisinopril * continue norvasc * prn metoprolol / hydral Indeterminate troponin * At this point my suspicion for coronary syndrome is low but I will consult Cardiology, most prominently to determine whether any further assessment needs to happen before the surgery * She does not have anything at the moment that seems like cardiac symptoms, no heart failure no arrhythmia UTI - pyuria and urinary urgency and frequency * Cultures currently pending * Continue empiric Rocephin pending culture results Bipolar disorder - mental health status is quite debilitated. Lives at [facility]. Psychiatrist is Dr. Louann Finley (cell: [phone]) -cont outpt meds; we are waiting for her friends to bring her home medicines in as she has some non formulary medicines -check tegretol level Hypokalemia - replace, protocol ordered SUBJECTIVE: Still with ongoing epigastric discomfort nausea, has been able to avoid vomiting with antiemetic medicines here No fever symptoms No chest pain or dyspnea OBJECTIVE Vitals reviewed: All stable without fever; notably blood pressure is much better today [employer] Utility [employer], my review: Sinus Exam: alert oriented skin warm dry color ok resps not labored lungs clear BSs heart regular abd soft nondistended minimally tender, bowel sounds present limbs warm, no edema iv site ok Laboratory data data: Liver enzymes, renal function, liver panel all normal today Radiology: Her HIDA scan has been done I reviewed the images, she has delayed filling of the gallbladder Objective: Vital Signs Temp Pulse Resp BP Pulse Ox 36.9 C 83 18 135/91 H 95 08/29/17 10:49 08/29/17 10:49 08/29/17 10:49 08/29/17 10:49 08/29/17 10:49 Laboratory Results 08/28/17 03:50 08/29/17 03:42 04/08/29/17 08/30/17 06:59 06:59 06:59 Intake Total 4498 4001 Output Total 240 Balance [id number] ICD10 Worksheet Patient Problems: Problems Problem Status Onset Dehydration Acute Elevated troponin Acute UTI (urinary tract infection) Acute
--- NOTE | 2017-08-29 14:44 | ASMTCMCOM ---
CM Note CM Note Notes: 08/29/2016 Case Management Note Discussed pt during multidisciplinary rounds this morning. Met w/pt this afternoon and her sister Tamera Riojas [phone]. Pt sister Tamera and her 2 sisters in [place] are supportive and involved in cares. Pt resides at [address] [place] [address] in [place]. Pt has participated in the CO recovery program at the [facility] previously for help with her bipolar diagnosis. Pt moved to [place] recently after a brief return to [place] upon completion of the [place] recovery program. Pt is now seen on an outpatient basis by providers at the [facility]. Pt was living independently prior to this weekend, when she returned to the [facility] under their medical respite program. Per pt, [facility] encouraged pt to come to [facility] for evaluation for physical symptoms. Pt plans to return to the [facility] respite program for 2 - 3 days after d/c. [facility] will provide private room, meals, RN supervision as well as counseling support. Case Management d/c poc: to [facility] Case Management to follow. Date Signed: 08/29/2017 02:43 PM Electronically Signed By:Felicia Corley RN
[2017-08-29] MEDS: PROMETHAZINE HCL 25 MG/ML INJ IVP PRN (20:59)
--- NOTE | 2017-08-29 21:19 | PDCONSULT ---
Hospice Patient Care Secretary Note: This is a 52-year-old patient presents to the hospital with abdominal pain located in the epigastric region radiating to her back. She also has nausea and vomiting. She has had 1 prior episode approximately 15 years ago. Initial workup including cardiac evaluation which revealed somewhat abnormal EKG and mild elevation in troponin. Stress test and cardiology consult are still pending. Urinalysis did show 4 colonies of gram-negative rods. HIDA scan early this morning demonstrated delayed filling of the gallbladder. Subsequent ultrasonography demonstrated cholelithiasis without evidence of acute cholecystitis. Biliary ducts are within normal parameters. No intra or extrahepatic biliary dilatation no pericholecystic fluid no sonographic Alvarez. Past medical history is significant for bipolar disease, hypertension, type 2 diabetes gastroesophageal reflux and hypothyroidism and heterozygosity for factor 5 Leiden Past surgical history is significant for exploratory laparotomy through a right upper quadrant incision with appendectomy. Subsequent lower midline incision for bowel obstruction and sepsis. Social history: Denies alcohol or drug use. Lives alone. Eight cigarettes per day. Lives in [facility] Family history: Significant for factor 5 Leiden in sister and father with homozygous city and symptoms Review of systems significant for her recent nausea and vomiting and urinary urgency all others reviewed and are negative Allergies include bee venom. No known drug allergies Medications at home: Benztropine Mesylate [Cogentin (RX)] 1.5 mg PO BID 08/27/17 [Last Taken 08/26/17 ] Cariprazine HCl [Vraylar] 3 mg PO HS 08/27/17 [Last Taken 08/26/17] Docusate Sodium [Colace 100 MG (*)] 200 mg PO BID 08/27/17 [Last Taken 08/26/17] Levomilnacipran HCl [Fetzima] 20 mg PO DAILY 08/27/17 [Last Taken 08/27/17] Levomilnacipran HCl [Fetzima] 40 mg PO DAILY 08/27/17 [Last Taken 08/27/17] Levothyroxine [Synthroid 25 mcg (*)] 25 mcg PO DAILY06 08/27/17 [Last Taken ] Lisinopril [Zestril 20 mg (*)] 20 mg PO DAILY 08/27/17 [Last Taken 08/27/17] Metformin HCl [Metformin 1000 mg] 1,000 mg PO BIDMEAL 08/27/17 [Last Taken 08/13] Omeprazole 20 mg PO BID 08/27/17 [Last Taken 08/26/17] Promethazine HCl [Phenergan 12.5mg tab] 12.5 mg PO Q6 PRN 08/27/17 [Last Taken 08/27/17] carBAMazepine [Tegretol] 400 mg PO HS 08/27/17 [Last Taken 08/26/17] clonazePAM [Clonazepam] 1.5 mg PO HS 08/27/17 [Last Taken 08/26/17] traZODone [traZODONE 100MG (*)] 200 mg PO HS 08/27/17 [Last Taken 08/26/17] Cholecalciferol (Vitamin D3) [Vitamin D3] 4,000 unit PO DAILY 08/28/17 [Last Taken Unknown] LORazepam [Ativan (*)] 1 mg PO TID PRN 08/28/17 [Last Taken Unknown] [place]-3 Fatty Acids [Fish Oil 1000 mg (*)] 2,000 mg PO DAILY 08/28/17 [Last Taken Unknown] diphenhydrAMINE HCL [Diphenhydramine HCl] 50 mg PO QID PRN 08/28/17 [Last Taken Unknown] Temp Pulse Resp BP Pulse Ox 37.3 C 97 16 130/85 H 93 08/29/17 19:58 08/29/17 19:58 08/29/17 19:58 08/29/17 19:58 08/29/17 19:58 Alert oriented no distress Sclerae anicteric, EOM I No focal neurologic signs Oropharynx slightly dry Regular rate and rhythm, no JVD Clear diet auscultation bilaterally No wheezes rales crackles Abdomen soft nontender to palpation no Alvarez sign well-healed right upper quadrant transverse incision and lower midline incisions. No hepatosplenomegaly Extremities without edema 2+ over 2+ femoral dorsalis pedis and radial pulses No lymphadenopathy cervical or supraclavicular Skin normal turgor and tone Affect normal Personally reviewed images on PACS agree with the findings of cholelithiasis without signs of acute cholecystitis on ultrasound HIDA scan suggestive of cystic duct partial obstruction Impression/plan: Acute on chronic cholecystitis with cystic duct obstruction. Recommend laparoscopic cholecystectomy. She may need open cholecystectomy secondary to previous abdominal surgery. The risks benefits and alternatives to surgery have been outlined clearly with the patient and her sister. All questions were addressed. The risks include but are not limited to bleeding, infection, injury to the biliary system that could require further procedures Cardiac workup pending. Surgery will be planned based on final recommendations and operating room availability
[2017-08-29] MEDS: ONDANSETRON DISINTEGRATING 4 MG TAB PO PRN (21:46)
[2017-08-29] MEDS: METOPROLOL TARTRATE 5 MG/5 ML INJ IVP PRN (22:50)
[2017-08-29] MEDS: clonazePAM 1 MG TAB PO SCH (22:59)
[2017-08-29] MEDS: traZODone 100 MG TAB PO SCH (22:59)
[2017-08-29] MEDS: PANTOPRAZOLE SODIUM 40 MG TAB PO SCH (22:59)
[2017-08-29] MEDS ORDERED: POTASSIUM CL 20 MEQ/15 ML UDCUP PO ONE (23:00)
[2017-08-29] MEDS: CARIPRAZINE HCL 3 MG PO SCH (23:01)
[2017-08-29] MEDS: carBAMazepine 200 MG TAB PO SCH (23:01)
[2017-08-30] MEDS: ONDANSETRON DISINTEGRATING 4 MG TAB PO PRN (02:56)
[2017-08-30] MEDS: hydrALAZINE 25 MG TAB PO PRN (02:57)
[2017-08-30] MEDS: LORazepam 2 MG/ML INJ IVP PRN ×4 (03:26→23:12)
[2017-08-30] MEDS: METOPROLOL TARTRATE 5 MG/5 ML INJ IVP PRN (05:40)
[2017-08-30] MEDS: LEVOTHYROXINE 25 MCG TAB PO SCH (05:47)
[2017-08-30] MEDS: SENNOSIDES 1 TAB PO SCH ×3 (09:00→22:18)
[2017-08-30] MEDS: DOCUSATE SODIUM 100 MG CAP PO SCH ×3 (09:00→22:18)
[2017-08-30] MEDS: LEVOMILNACIPRAN HCL 20 MG PO SCH ×2 (09:00→10:16)
[2017-08-30] MEDS: CHOLECALCIFEROL VIT D3 2,000 UNITS TAB/CAP PO SCH ×2 (09:00→10:15)
[2017-08-30] MEDS: LEVOMILNACIPRAN HCL 40 MG PO SCH ×2 (09:00→10:16)
[2017-08-30] MEDS: BENZTROPINE MESYLATE 1 MG TAB PO SCH ×3 (09:00→22:09)
[2017-08-30] MEDS: LISINOPRIL 40 MG TAB PO SCH (10:15)
[2017-08-30] MEDS: amLODIPine BESYLATE 5 MG TAB PO SCH (10:15)
[2017-08-30] MEDS ORDERED: REGADENOSON 0.4 MG/5 ML SYR IVP ONE (10:28)
--- NOTE | 2017-08-30 11:35 | CPR ---
[f rep st] NONINVASIVE CARDIAC PROCEDURE REPORT PROCEDURE PERFORMED: Lexiscan injection MPI study. INDICATION FOR PROCEDURE: Mildly elevated troponin, pre-surgical evaluation. PRE: After obtaining informed consent, ensuring patient's n.p.o. status of caffeine for greater than 12 hours, patient was placed on electrocardiogram. Initial EKG shows sinus tachycardia with ventric ular rate at 115 beats per minute, she has nonspecific T-wave abnormalities in inferior lateral leads . Patient denies any chest pain, shortness of breath, or symptoms suggesting of ischemia. Initial s aturation 91%, blood pressure of 138/104. INJECTION: Patient was given Lexiscan injection followed by nuclear isotope slow IV push. Within 2 minutes of injection, heart rate increased to 118 beats per minute, electrocardiogram remained unchan ged, blood pressure remained stable at 136/107, saturation 92%. Patient reporting no chest pain, hilton rtness of breath, or symptoms suggesting of ischemia, does report mild flushing sensation. Within 5 minutes, patient reports symptoms all subsided, final blood pressure was 141/101, saturation 90%, hea rt rate 118 sinus tach. IMPRESSION: A 52-year-old female admitted for abdominal pain, was noted to have indeterminate tropon in level in the emergency department, potential surgery, undergoing Lexiscan MPI study to evaluate fo r possible cardiac ischemia. No symptoms of ischemia with injection or post injection. No significa nt EKG changes, vital signs are stable. Patient will be taken down to Nuclear Medicine for post-stre ss imaging. /[id number]/MODL
[2017-08-30] MEDS ORDERED: PERFLUTREN LIPID MICROSPHERES 1.1 MG/ML VIAL IV ONE (14:50)
--- NOTE | 2017-08-30 15:41 | ECHO ---
[email or web address] [address] [address] Main: [phone] Fax: [email or web address] Echocardiogram Name: LIDA ELIZABETH MR#: [id number] Study Date: 08/30/2017 Study Time: 02:25 PM Date of : 1965 Age: 52 year(s) Height: 162.6 cm (64 in.) Weight: 92.08 kg (203 lb.) BSA: 1.97 m2 Gender: Female Examination: Echo with Definity Indication: Abnormal MPI, Indeterminate elevation troponin levels Image Quality: Contrast: Requested by: Deya Wang BP: 127 mmHg/95 mmHg Heart Rate: Rhythm: Tachycardia Indication: Abnormal MPI, Indeterminate elevation troponin levels Procedure Staff Minibus Driver: Apolinar Ramírez RDCS Reading Physician: Enoch Powers MD Requesting Provider: Conclusions: Normal size left ventricle. The mid to distal segments of the anteroseptal, anterior, and anterolateral lopez are akinetic. The apex is aneurysmal. Definity contrast demonstrates no evidence of apical thrombus. The LVEF is 20%.. The mitral valve is normal in appearance and function. The aortic valve is normal in appearance and function. No old studies for comparison. Measurements: Chambers Valvular Assessment AV/MV Valvular Assessment TV/PV Normal Normal Normal Name Value Range Name Value Range Name Value Range Ao Aissatou (MM): 3.3 cm (2.2 cm-3.7 AV Vmax: 1.30 m/s (1 m/s-1.7 TR Vmax: 1.79 mm/s ( - ) cm) m/s) TR PGmax: 13 mmHg ( - ) IVSd (2D): 1.0 cm (0.6 cm-1.1 AV maxP mmHg ( - ) PV Vmax: 1.06 m/s (0.6 m/s-0.9 cm) LVOT Vmax: 0.87 m/s (0.7 m/s-1.1 m/s) LVDd (2D): 4.4 cm (3.9 cm-5.3 m/s) PV PGmax: 4 mmHg ( - ) cm) MV E Vmax: 0.95 m/s ( - ) LVDs (2D): 3.5 cm (2.1 cm-4 MV A Vmax: 0.85 m/s ( - ) cm) MV E/A: 1.12 ( - ) LVPWd (2D): 1.0 cm ( - ) LVEF (MOD4): 17 % (>=55 %) Continued Measurements: Chambers Valvular Assessment AV/MV Name Value Name Value LADs Lon.2 cm MV E' Septal: 0.03 m/s LA Area: 22.9 cm2 MV E/E' Septal: 28.60 Patient: LIDA ELIZABETH Study Date: 08/30/2017 Page 1 of 2 02:25 PM MV E/E' Lateral: 20.70 Findings: Left Ventricle: Normal size left ventricle. The mid to distal segments of the anteroseptal, anterior, and anterolateral lopez are akinetic. The apex is aneurysmal. Definity contrast demonstrates no evidence of apical thrombus. The LVEF is 20%.. Right Ventricle: Normal size right ventricle. Normal RV function. Left Atrium: The left atrium is normal in size. Right Atrium: The right atrium is normal in size. Mitral Valve: The mitral valve is normal in appearance and function. Trivial mitral valve regurgitation. Aortic Valve: The aortic valve is normal in appearance and function. Tricuspid Valve: The tricuspid valve appears normal. Trivial tricuspid valve regurgitation. Pulmonic Valve: The pulmonic valve is normal in appearance and function. Aorta: The aorta is normal. Pericardium: No pericardial effusion. Exam Comments: (No Signature Object) Patient: LIDA ELIZABETH Study Date: 08/30/2017 Page 2 of 2 02:25 PM [id number]
[2017-08-30] MEDS ORDERED: NITROGLYCERIN 0.4 MG BTL SL PRN (16:23)
[2017-08-30] MEDS ORDERED: diphenhydrAMINE 25 MG CAP PO ONE (16:23)
[2017-08-30] MEDS ORDERED: DIAZEPAM 5 MG TAB PO ONE (16:23)
[2017-08-30] MEDS ORDERED: ACETAMINOPHEN 325 MG TAB PO PRN (16:23)
[2017-08-30] MEDS ORDERED: TEMAZEPAM 15 MG CAP PO PRN (16:23)
[2017-08-30] MEDS ORDERED: FAMOTIDINE 20 MG TAB PO ONE (16:23)
[2017-08-30] MEDS ORDERED: ASPIRIN EC 325 MG TAB PO ONE (16:23)
[2017-08-30] MEDS ORDERED: NS 1,000 ML IV SCH ×2 (16:30→17:30)
--- NOTE | 2017-08-30 16:45 | CPEKG ---
Heart Rate: 114 RR Interval: 526 P-R Interval: 184 QRSD Interval: 88 QT Interval: 348 QTC Interval: 480 P [place]: 61 QRS [place]: 1 T Wave [place]: 231 EKG Severity - ABNORMAL ECG - EKG Impression: SINUS TACHYCARDIA EKG Impression: ANTEROLATERAL INFARCT, ACUTE/EVOLVING--NEW SINCE AUGUST 28, 2017 EKG Impression: NONSPECIFIC T ABNORMALITIES, INFERIOR LEADS Electronically Signed By: Tk Pompa 30-Aug-2017 20:26:42
--- NOTE | 2017-08-30 17:52 | HOSPPROG ---
Hospitalist Progress Note Assessment/Plan: DIAGNOSES: # Intractable nausea and vomiting and epigastric discomfort * Symptoms persist intermittently today * ? If this is due to her gallbladder disease or to her heart. She certainly has significant evidence of likely coronary disease, but with ongoing symptoms for 2 weeks with essentially normal cardiac enzymes it may be hard to blame all of her symptoms on her coronary disease. # Heart disease with markedly reduced left ventricular ejection fraction and wall motion abnormalities, with also perfusion abnormalities on myocardial perfusion imaging, highly suggestive of a coronary induced ischemic cardiomyopathy # Cholelithiasis noted on x-ray, and has delayed filling on HIDA scan # Accelerated/uncontrolled hypertension - blood pressure is much better now * increased lisinopril; continue norvasc * ? If this is due to her nausea and pain symptoms, ? If this is causative of any of her symptoms or her heart disease # ? UTI - pyuria and urinary urgency and frequency but no growth of pathogenic organisms and culture # Bipolar disorder - mental health status is chronically quite debilitated. Receives care at at [facility]. Psychiatrist is Dr. Louann Finley (cell: ) -cont outpt meds; we are waiting for her friends to bring her home medicines in as she has some non formulary medicines # Hypokalemia - stable after replacement Patient was seen on my rounds, also on multidisciplinary rounds, and I also reviewed this patient's condition, list of medical issues, and further plans with doctors Jeanne, Gio, and Ricky today PLANS: -begin aspirin and scheduled metoprolol at this time -will check a lipid panel and begin statin therapy -continue her lisinopril, increase that -coronary angiography tomorrow morning -further recommendations and plans for management of her heart disease based on results -also based on this will need to determine whether we think she still is having some of her symptoms from gallbladder disease; if her heart issues are all treated in the symptoms persist she probably ought to have her gallbladder out but at this time that is not a certainty. 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 Segovia and Dr. Enoch Powers. There are wall motion abnormalities and ejection fraction reduced at estimated 26%, with also some perfusion abnormalities. The patient has now had echocardiogram which I reviewed with Dr. García and Dr. Powers. Her ejection fraction is at 20% by this study and she does have wall motion abnormalities again. Objective: Vital Signs Temp Pulse Resp BP Pulse Ox 36.6 C 108 H 16 127/95 H 94 08/30/17 11:46 08/30/17 13:31 08/30/17 11:46 08/30/17 13:31 08/30/17 11:46 Laboratory Results 08/28/17 03:50 08/30/17 04:06 08/29/17 08/30/17 08/31/17 06:59 06:59 06:59 Intake Total 4001 700 Output Total 240 Balance 3761 700 - Time Spent With Patient Time Spent with Patient: greater than 35 minutes Time Spent with Patient: Greater than 35 minutes spent on this patients care, greater than 50% of time spent counseling, educating, and coordinating care regarding the above mentioned plan. ICD10 Worksheet Patient Problems: Problems Problem Status Onset Dehydration Acute Elevated troponin Acute UTI (urinary tract infection) Acute
[2017-08-30] MEDS ORDERED: ENOXAPARIN 100 MG/ML SYR SC ONE (17:54)
--- NOTE | 2017-08-30 18:07 | GCON ---
[f rep st] CONSULTATION CHIEF COMPLAINT: Nausea. HISTORY OF PRESENT ILLNESS: The patient has been having nausea and she feels very poorly. She has h ad vomiting and dry heaves. She has had this over a couple of weeks and has been in the emergency ro om 2 times before she was finally admitted on the 3rd time in the emergency room. That was on Saturd ay that she was admitted. She has not had fever or chills. She is not having a lot of abdominal dis comfort. She has been found to have gallbladder disease. What she has been suffering with a lot more is feeling incredibly tired and exhausted and she has for 4-6 months felt like she really cannot walk around or do much. She said each leg feels like it weig hs a ton and she has been having to move very, very slowly. She has no arthralgias. No rashes. She has been living at the [facility] in [place] where she has been treated for de pression. She was here September until the end of January. She was discharged from [facility] at that time. She lives alone. She went home for 5 weeks to [place] and then is now staying in [facility]. She has a sister outside of [place]. She does smoke. Her cardiac risk factors are positive for hypertension, smoking, obesity. Cardiac risk factors are negative for diabetes, hyperlipidemia, hyperuricemia, family history of brock ature coronary disease. She does a history of Leiden factor V. She has a history of hypothyroidism. She has now been starting to feel better. She has no known coronary artery disease. PAST MEDICAL HISTORY: MEDICATIONS: Medications per reconciliation form. ALLERGIES: Bees. SOCIAL HISTORY: She was born in [place], [place]. She smokes. She grew up in [facility] [place] 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 She enjoyed her work. She is not working at this time. She does not drink significant amounts of alcohol or any other drugs. SURGICAL HISTORY: 1. Status post perforated bowel surgery in 1989. 2. Status post breast reduction surgery. 3. Status post T and A. 4. Status post sinus surgery multiple times. REVIEW OF SYSTEMS: A 10-point review of systems negative except as noted above. FAMILY HISTORY: No family history of premature coronary disease. No history of unexplained sudden d eath at a young age. PHYSICAL EXAM: VITAL SIGNS: Blood pressure 127/95, heart rate 108, respiratory rate is 12. She is sitting comfortably in a hospital bed. HEENT: Pupils equal and reactive. NECK: Supple. CARDIOVASCULAR: S1, S2. Soft systolic murmur in the left sternal border. No diastolic murmur. No S3, S4. No rubs. PULMONARY: Rhonchi. No rales, wheezing, or dullness. ABDOMEN: Soft, nontender, without masses. EXTREMITIES: No edema, inflammation or ulceration. NEUROLOGIC: Cranial nerves 2-12 grossly normal. Motor and sensory intact. LABORATORY DATA: EKG shows some ST-T changes and a Q-wave on the first EKG and then no Q-wave in the 2nd EKG in V2. Troponins have been indeterminate. White count 4.75, hematocrit 36. Sodium 139, potassium 4.2, chloride 109, CO2 26, total protein 5.1, albumin 3.0. Troponin 0.046. Nuclear stress test looks like that she has a fixed anterior defect without ischemia. The ejection f raction was read in the low 20s. She has now had an echocardiogram which also shows anterolateral hypokinesis and main ischemic cardio myopathy. She has mid to distal segments of the anteroseptal, anterior, and anterolateral lopez that are akinetic. Rumsey is aneurysmal. No evidence of thrombus. LVEF is 20%. Mitral valve normal in a ppearance and function. Aortic valve normal in appearance and function. ASSESSMENT AND PLAN: 1. Prior myocardial infarction. 2. Ischemic cardiomyopathy. 3. Gallbladder disease. 4. Dyslipidemia. 5. Obesity. 6. Hypertension. 7. Smoking history. At this point in time, I have talked to her about going ahead with surgery because she does not have any chest pain versus doing an angiogram first to see what is going on with the coronary arteries. S he is having a hard time making up her own mind and wanted to talk to her dad who was in [place], and I spoke with him and went over the options with him. He would like to know that her coronary anatom y is acceptable before she goes blindly into gallbladder surgery and she is willing to do it that way and would like to do it that way. I answered all of his questions and he is familiar with cardiology from his own personal use of the s ystem, etc. She will need treatment for ischemic cardiomyopathy and we will do an angiogram in the morning. Now, she needs to get her gallbladder surgery, so Dr. Powers, and I will review the films and decide what is the best approach depending on what we find. Hopefully, maybe she does not have significant obst ructive disease or if she has a total occlusion, we will get her headed toward surgery. However, if it is really important for her to receive a stent, we can do that and manage her through that. All her questions have been answered. All her father's questions have been answered and I have a line into the hospitalist. /[id number]/MODL
[2017-08-30] MEDS: METOPROLOL TARTRATE 50 MG TAB PO SCH ×2 (18:18→19:58)
[2017-08-30] MEDS: PANTOPRAZOLE SODIUM 40 MG TAB PO SCH (22:09)
[2017-08-30] MEDS: traZODone 100 MG TAB PO SCH (22:09)
[2017-08-30] MEDS: clonazePAM 1 MG TAB PO SCH (22:11)
[2017-08-30] MEDS: carBAMazepine 200 MG TAB PO SCH (22:11)
[2017-08-30] MEDS: CARIPRAZINE HCL 3 MG PO SCH (22:12)
[2017-08-31] MEDS: ONDANSETRON DISINTEGRATING 4 MG TAB PO PRN (00:51)
[2017-08-31] MEDS: PROMETHAZINE HCL 25 MG/ML INJ IVP PRN (04:40)
[2017-08-31] MEDS: LORazepam 2 MG/ML INJ IVP PRN ×3 (04:40→15:13)
[2017-08-31 05:26] LABS: PLATELET COUNT 210 10^3/uL (150-400)
[2017-08-31 05:34] LABS: INR 1.08 (0.83-1.16); PROTIME(PATIENT) 14.2 SEC (12.0-15.0)
[2017-08-31] MEDS ORDERED: FAMOTIDINE 20 MG TAB PO ONE ×2 (07:00→11:45)
[2017-08-31] MEDS ORDERED: DIAZEPAM 5 MG TAB PO ONE ×2 (07:00→11:45)
[2017-08-31] MEDS ORDERED: ASPIRIN EC 325 MG TAB PO ONE ×2 (07:00→11:45)
[2017-08-31] MEDS ORDERED: diphenhydrAMINE 25 MG CAP PO ONE ×2 (07:00→11:45)
[2017-08-31] MEDS ORDERED: NS 1,000 ML IV SCH (07:00)
[2017-08-31] MEDS: LEVOTHYROXINE 25 MCG TAB PO SCH (10:15)
[2017-08-31] MEDS: METOPROLOL TARTRATE 50 MG TAB PO SCH (10:15)
[2017-08-31] MEDS: amLODIPine BESYLATE 5 MG TAB PO SCH (10:15)
[2017-08-31] MEDS: LISINOPRIL 40 MG TAB PO SCH (10:15)
[2017-08-31] MEDS ORDERED: MIDAZOLAM 2 MG/2 ML VIAL ONE ×3 (11:31→12:32)
[2017-08-31] MEDS ORDERED: IOPAMIDOL (ISOVUE-370) 150 ML BTL IV ONE (11:31)
[2017-08-31] MEDS ORDERED: LIDOCAINE 1% 300 MG/30 ML SDV ONE (11:31)
[2017-08-31] MEDS ORDERED: fentaNYL 100 MCG/2 ML INJ ONE ×2 (11:31→12:21)
[2017-08-31] MEDS: LEVOMILNACIPRAN HCL 20 MG PO SCH (11:47)
[2017-08-31] MEDS: LEVOMILNACIPRAN HCL 40 MG PO SCH (11:47)
--- NOTE | 2017-08-31 11:56 | HOSPPROG ---
Hospitalist Progress Note Assessment/Plan: DIAGNOSES: # Intractable nausea and vomiting and epigastric discomfort * likely due to her gal bladder issues; noncritical CAD should not cause these sxs # Cholelithiasis noted on x-ray and sono, and has delayed filling on HIDA scan # Diffuse non critical CAD, lesions up to 50% # Cardiomyopathy, due likely to CAD and HTN, with fatigue but no acute CHF # Accelerated/uncontrolled hypertension - poor control of diastolics on increased doses of multiple meds # Pyuria and hematuria with no growth in cultures, ?etiology, ? if a renal vs bladder source, if renal could it be related to HTN? # Bipolar disorder - mental health status is chronically quite debilitated. [place] [facility] [place]iatrist is Dr. Louann Finley (cell: ) -cont outpt meds; we are waiting for her friends to bring her home medicines in as she has some non formulary medicines # Hypokalemia - stable after replacement Patient was seen on my rounds, also on multidisciplinary rounds I have reviewed in detail today with Dr García PLANS: -current plan is for lap randi in am, I have ordered npo p mindnight -daily asa -change BBlocker to Coreg -increase Ca Shayy -add a diuretic -begin statin therapy -continue her lisinopril at increased dose -due to failure to make progress with BP control on multiple doses of meds, along with pyuria/hematuria but neg culture, will consult renal for assessment; continue close follow up of Creat -continue cardiac monitoring here -continue her usual medications for bipolar disease SUBJECTIVE: Still with ongoing epigastric discomfort nausea, has been able to avoid vomiting with antiemetic medicines here No fever symptoms No chest pain or dyspnea OBJECTIVE Vitals reviewed: Today again is having a lot of very high systolic BPs, no fever , pulses better 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 Segovia and Dr. Enoch Powers. There are wall motion abnormalities and ejection fraction reduced at estimated 26%, with also some perfusion abnormalities. -echocardiogram Her ejection fraction is at 20% by this study and she does have wall motion abnormalities again. -coronary angio: 50% LAD, 50% Right, other diffuse noncritical disease Objective: Vital Signs Temp Pulse Resp BP Pulse Ox 36.6 C 111 H 15 131/104 H 94 08/31/17 08:40 08/31/17 08:40 08/31/17 08:40 08/31/17 08:40 08/31/17 08:40 Laboratory Results 08/31/17 04:43 08/31/17 04:43 08/30/17 08/31/17 09/01/17 06:59 06:59 06:59 Intake Total 700 830 Output Total 20 Balance 700 810 PT 14.2 SEC (12.0-15.0) 08/31/17 04:43 INR 1.08 (0.83-1.16) 08/31/17 04:43 - Time Spent With Patient Time Spent with Patient: greater than 35 minutes Time Spent with Patient: Greater than 35 minutes spent on this patients care, greater than 50% of time spent counseling, educating, and coordinating care regarding the above mentioned plan. ICD10 Worksheet Patient Problems: Problems Problem Status Onset Dehydration Acute Elevated troponin Acute UTI (urinary tract infection) Acute
[2017-08-31] MEDS: BENZTROPINE MESYLATE 1 MG TAB PO SCH ×2 (12:10→22:19)
[2017-08-31] MEDS: SENNOSIDES 1 TAB PO SCH ×2 (12:11→22:20)
[2017-08-31] MEDS: CHOLECALCIFEROL VIT D3 2,000 UNITS TAB/CAP PO SCH (12:11)
[2017-08-31] MEDS: DOCUSATE SODIUM 100 MG CAP PO SCH ×2 (12:11→22:20)
--- NOTE | 2017-08-31 12:27 | PDPROPOC ---
Sedation Plan of Care Sedation Plan of Care: mental status noted ASA Classification: ASA 1 Planned drugs: fentanyl, midazolam Mallampati Score: Class 1 Mallampati Reference Image: Patient passed 3-3-2 rule?: Yes
[2017-08-31] MEDS ORDERED: NITROGLYCERIN 0.4 MG BTL SL PRN (13:00)
[2017-08-31] MEDS ORDERED: OXYCODONE/APAP 5/325 TAB PO PRN (13:00)
[2017-08-31] MEDS ORDERED: ONDANSETRON 4 MG/2 ML VIAL IVP PRN (13:00)
[2017-08-31] MEDS ORDERED: HYDROCODONE/APAP 5/325 TAB PO PRN (13:00)
[2017-08-31] MEDS ORDERED: ATROPINE SULFATE 1 MG/10 ML SYR IVP PRN (13:00)
[2017-08-31] MEDS ORDERED: CARVEDILOL 6.25 MG TAB PO SCH (13:05)
--- NOTE | 2017-08-31 13:46 | CPIP ---
[f rep st] INVASIVE CARDIAC PROCEDURE INDICATIONS: Abnormal nuclear stress test with anterior infarction and lateral wall ischemia. She is preoperative for gallbladder surgery. She has a history of smoking. History of hypertension and dyslipidemia. She gave informed consent for the procedure and had no complications. PROCEDURES: Left heart catheterization, left ventriculogram, right and left coronary arteriogram. FINDINGS: Left heart cath: Left ventricular end-diastolic 18 mmHg. No aortic stenosis. Left ventriculogram. Patient has marked anterolateral apical hypokinesis with ejection fraction approximately 23% and a di lated ischemic cardiomyopathy. She has 1+ mitral regurgitation at least. Angiography: Left main coronary artery is normal. Left anterior descending coronary artery is highly calcified in the mid section with a 50% stenosis p resent at the takeoff of a large 2nd diagonal branch. The circumflex coronary artery itself is a 50% mid stenosis. OM1 is occluded with [id number] collaterals. The right coronary artery has 50% dis ease present distally. It is a codominant system. COMPLICATIONS: None. CONDITION: At the end of the study excellent. The patient is waking up as I am dictating this. RECOMMENDATIONS: The patient is scheduled for gallbladder surgery. We will start Coreg therapy righ t now, and she will take it twice a day. She will need aggressive medications for an ischemic cardio myopathy, and we can up titrate those medications and start them carefully as an outpatient. If she has a prolonged hospital course, we can start her SARABJIT inhibitor and up titrate her beta marissa while she is here, but otherwise, we might just do it as an outpatient. I will be happy to follow her cli nically. At this point, she is cleared for surgery. She is at markedly higher risk for surgery than the average patient. The risk comes from her smoking , her other metabolic problems, her depression, her prior myocardial infarction, her ischemic cardiom yopathy with an ejection fraction of 23%, and her significant coronary artery disease that is still p resent with her occluded circumflex. She also has a 50% at least LAD heavily calcified lesion. She is aware of the risk of surgery, and she wants to proceed. We talked about this all yesterday, a nd I have reviewed the films with the interventional service. There is nothing that needs interventi on at this time. /[id number]/MODL
[2017-08-31] MEDS: hydrALAZINE 25 MG TAB PO PRN (16:45)
--- NOTE | 2017-08-31 16:59 | ASMTCMCOM ---
CM Note CM Note Notes: 08/31/2017 Case Management Note Reviewed case during multidisciplinary rounds. Pt was at nuc stress test which showed an anterior infarction and lateral wall ischemia. She is preop for gallbladder surgery. Case Management d/c poc: to be determined. Anticipating return to [facility] for counseling support. Per pt [facility] has an RN on staff for post op cares. Case Management to follow. Date Signed: 08/31/2017 04:58 PM Electronically Signed By:Felicia Corley RN
--- NOTE | 2017-08-31 17:05 | SOAPPROG ---
STEVE Progress Note Assessment/Plan: Assessment/Plan: 52 y.o with symptomatic cholelithiasis Cardiomyopathy EF 20-25%. Coronary cath - no limiting stenosis/sclerosis Exam unchanged Plan to proceed to lap randi in am Consent obtained after verbal confirmation of understanding Anticipate 1 -2 days stay post procedure for new medication adjustment and placement 08/31/17 17:00 Objective: Vital Signs Temp Pulse Resp BP Pulse Ox 36.6 C 100 15 153/122 H 99 08/31/17 16:04 08/31/17 16:04 08/31/17 16:04 08/31/17 16:45 08/31/17 16:04 Laboratory Results 08/31/17 04:43 08/31/17 04:43 08/30/17 08/31/17 09/01/17 05:59 05:59 05:59 Intake Total 700 830 Output Total 20 Balance 700 810 PT 14.2 SEC (12.0-15.0) 08/31/17 04:43 INR 1.08 (0.83-1.16) 08/31/17 04:43 ICD10 Worksheet Patient Problems: Problems Problem Status Onset Dehydration Acute Elevated troponin Acute UTI (urinary tract infection) Acute
[2017-08-31] MEDS ORDERED: amLODIPine BESYLATE 5 MG TAB PO ONE (18:00)
[2017-08-31] MEDS: CARVEDILOL 25 MG TAB PO SCH (18:28)
[2017-08-31] MEDS: HYDROCHLOROTHIAZIDE 25 MG TAB PO SCH (18:28)
[2017-08-31] MEDS: clonazePAM 1 MG TAB PO SCH (22:19)
[2017-08-31] MEDS: carBAMazepine 200 MG TAB PO SCH (22:19)
[2017-08-31] MEDS: traZODone 100 MG TAB PO SCH (22:19)
[2017-08-31] MEDS: hydrALAZINE 25 MG TAB PO SCH (22:20)
[2017-08-31] MEDS: CARIPRAZINE HCL 3 MG PO SCH (22:21)
[2017-09-01] MEDS: LORazepam 0.5 MG TAB PO PRN ×2 (02:03→20:20)
[2017-09-01] MEDS ORDERED: RANITIDINE 50 MG/2 ML VIAL IVP ONE (06:05)
[2017-09-01] MEDS ORDERED: FAMOTIDINE 20 MG/NACL 50 ML IV ONE (06:15)
[2017-09-01] MEDS ORDERED: LR 1,000 ML IV ONE (10:17)
[2017-09-01] MEDS ORDERED: LIDOCAINE 1% 300 MG/30 ML SDV ONE (10:45)
[2017-09-01] MEDS ORDERED: BUPIVACAINE 0.5% 30 ML SDV ONE (10:45)
[2017-09-01] MEDS ORDERED: MIDAZOLAM 2 MG/2 ML VIAL ONE (11:00)
--- NOTE | 2017-09-01 11:03 | PDANEPAE ---
ANE History of Present Illness LAP CCX ANE Past Medical History - Cardiovascular History Hx Hypertension: Yes Hx Arrhythmias: No Hx Chest Pain: No Hx Coronary Artery / Peripheral Vascular Disease: Yes Hx CHF / Valvular Disease: Yes Hx Palpitations: No - Pulmonary History Hx COPD: No Hx Asthma/Reactive Airway Disease: No Hx Recent Upper Respiratory Infection: No Hx Oxygen in Use at Home: No Hx Sleep Apnea: No Sleep Apnea Screening Result - Last Documented: Positive - Endocrine History Hx Diabetes: Yes Hypothyroid: No Hyperthyroid: No - Renal History Hx Renal Disorders: Yes - Liver History Hx Hepatic Disorders: No - Neurological & Psychiatric Hx Hx Neurological and Psychiatric Disorders: No - Chronic Pain History Chronic Pain: No ANE Review of Systems Review of Systems: - Exercise capacity Exercise capacity: <4 METS - Systems Constitutional: Reports: malaise Cardiac: Reports: no symptoms Respiratory: Reports: no symptoms Gastrointestinal: Reports: no symptoms Genitourinary: Reports: no symptoms ANE Patient History - Allergies Allergies/Adverse Reactions: bee venom protein (honey bee) Allergy (Verified 08/27/17 14:21) - Home Medications Home Medications: Benztropine Mesylate [Cogentin (RX)] 1.5 mg PO BID 08/27/17 [Last Taken 08/26/17 ] Cariprazine HCl [Vraylar] 3 mg PO HS 08/27/17 [Last Taken 08/26/17] Docusate Sodium [Colace 100 MG (*)] 200 mg PO BID 08/27/17 [Last Taken 08/26/17] Levomilnacipran HCl [Fetzima] 20 mg PO DAILY 08/27/17 [Last Taken 08/27/17] Levomilnacipran HCl [Fetzima] 40 mg PO DAILY 08/27/17 [Last Taken 08/27/17] Levothyroxine [Synthroid 25 mcg (*)] 25 mcg PO DAILY06 08/27/17 [Last Taken ] Lisinopril [Zestril 20 mg (*)] 20 mg PO DAILY 08/27/17 [Last Taken 08/27/17] Metformin HCl [Metformin 1000 mg] 1,000 mg PO BIDMEAL 08/27/17 [Last Taken 08/13] Omeprazole 20 mg PO BID 08/27/17 [Last Taken 08/26/17] Promethazine HCl [Phenergan 12.5mg tab] 12.5 mg PO Q6 PRN 08/27/17 [Last Taken 08/27/17] carBAMazepine [Tegretol] 400 mg PO HS 08/27/17 [Last Taken 08/26/17] clonazePAM [Clonazepam] 1.5 mg PO HS 08/27/17 [Last Taken 08/26/17] traZODone [traZODONE 100MG (*)] 200 mg PO HS 08/27/17 [Last Taken 08/26/17] Cholecalciferol (Vitamin D3) [Vitamin D3] 4,000 unit PO DAILY 08/28/17 [Last Taken Unknown] LORazepam [Ativan (*)] 1 mg PO TID PRN 08/28/17 [Last Taken Unknown] Sperry-3 Fatty Acids [Fish Oil 1000 mg (*)] 2,000 mg PO DAILY 08/28/17 [Last Taken Unknown] diphenhydrAMINE HCL [Diphenhydramine HCl] 50 mg PO QID PRN 08/28/17 [Last Taken Unknown] - NPO status NPO Status: no food or drink >8 hours NPO Since - Liquids (Date): 08/31/17 NPO Since - Liquids (Time): 23:55 NPO Since - Solids (Date): 08/31/17 NPO Since - Solids (Time): 20:00 - Anes Hx Anes Hx: post operative nausea - Smoking Hx Smoking Status: Current every day smoker - Alcohol Use Alcohol Use: None - Family Anes Hx Family Anes Hx: none ANE Labs/Vital Signs - Labs Result Diagrams: 08/31/17 04:43 08/31/17 04:43 - Vital Signs Vital Signs: reviewed preoperatively; see RN documention for details Blood Pressure: 118/90 Heart Rate: 99 Respiratory Rate: 16 O2 Sat (%): 94 Height: 162.56 cm Weight: 91.7 kg ANE Physical Exam - Airway Neck exam: FROM Mallampati Score: Class 3 Mouth exam: normal dental/mouth exam - Pulmonary Pulmonary: no respiratory distress - Cardiovascular Cardiovascular: regular rate and rhythym - ASA Status ASA Status: IV ANE Anesthesia Plan Anesthesia Plan: general endotracheal anesthesia Lines/Monitors: arterial line (POSSIBLE A. LINE)
[2017-09-01] MEDS ORDERED: MIDAZOLAM 2 MG/2 ML VIAL IVP ONE (11:08)
[2017-09-01] MEDS ORDERED: LIDOCAINE 2% 5 ML SDV ONE (11:12)
[2017-09-01] MEDS ORDERED: PROPOFOL 200 MG/20 ML VIAL ONE (11:12)
[2017-09-01] MEDS ORDERED: fentaNYL 100 MCG/2 ML INJ ONE ×2 (11:12→11:41)
[2017-09-01] MEDS ORDERED: ROCURONIUM 50 MG/5 ML VIAL ONE (11:12)
[2017-09-01] MEDS ORDERED: PROMETHAZINE HCL 25 MG TAB PO PRN (11:37)
[2017-09-01] MEDS ORDERED: SUGAMMADEX SODIUM 200 MG/2 ML VIAL IVP ONE (12:19)
[2017-09-01] MEDS ORDERED: ONDANSETRON 4 MG/2 ML VIAL ONE (12:19)
[2017-09-01] MEDS ORDERED: DEXAMETHASONE 4 MG/ML VIAL ONE (12:19)
--- NOTE | 2017-09-01 12:42 | POSTOPPROG ---
Post Op Note Date of Operation: 09/01/17 Surgeon: Kirill Angel Wire Inspector: Shy JOINER Anesthesiologist: Jj Gaitan Anesthesia: GET(General Endotracheal) Pre-op Diagnosis: Calculous cholecystitis Post-op Diagnosis: Same Indication: Symptomatic cholecystitis with a new finding of cardiomyopathy ef 20 -25% Procedure: Laparoscopic cholecystectomy. Adhesiolysis Findings: Omentum adhered to previous scar tissue from laparotomies Inf/Abcess present in the surg proc area at time of surgery?: No Depth: Organ Space EBL: Minimal Complications: None Specimen(s): Gallbladder to permanent pathology
[2017-09-01] MEDS ORDERED: ONDANSETRON 4 MG/2 ML VIAL IVP PRN (12:43)
[2017-09-01] MEDS ORDERED: fentaNYL 100 MCG/2 ML INJ IVP PRN (12:43)
[2017-09-01] MEDS ORDERED: NALOXONE HCL 0.4 MG/ML INJ IVP PRN (12:43)
[2017-09-01] MEDS ORDERED: HYDROmorphONE/DILAUDID 2 MG/ML INJ IVP PRN (12:43)
[2017-09-01] MEDS ORDERED: PROMETHAZINE HCL 25 MG/ML INJ IVP PRN (12:43)
[2017-09-01] MEDS ORDERED: ALBUTEROL 3 ML DEYVIAL IH PRN (12:43)
--- NOTE | 2017-09-01 12:44 | POSTANESTH ---
Post Anesthetic Evaluation Cardiovascular Status: Normal, Stable Respiratory Status: Normal, Stable Level of Consciousness/Mental Status: Can Participate in Eval Pain Control: Adequate, Prn Tx Ordered Nausea/Vomiting Control: Adequate, Prn Tx Ordered Complications Possibly Related to Anesthesia: None Noted
[2017-09-01] MEDS ORDERED: BISACODYL 10 MG SUPP PR PRN (13:50)
[2017-09-01] MEDS ORDERED: POLYETHYLENE GLYCOL 3350 17 GM PKT PO PRN (13:50)
--- NOTE | 2017-09-01 14:01 | GOP ---
[f rep st] OPERATIVE REPORT DATE OF OPERATION: SURGEON: Kirlil Angel MD DISTRICT SCOUT EXECUTIVE: Shy Torres PA-C. ANESTHESIA: General endotracheal anesthesia was used. ANESTHESIOLOGIST: Jj Gaitan MD. PREOPERATIVE DIAGNOSIS: Calculous, cholecystitis. POSTOPERATIVE DIAGNOSIS: Calculous, cholecystitis. PROCEDURE PERFORMED: Laparoscopic cholecystectomy. FINDINGS: SPECIMENS: Gallbladder to permanent pathology. ESTIMATED BLOOD LOSS: 10 mL. INDICATIONS: This is a 52-year-old woman who presents with calculous, cholecystitis, but also abnorm al EKG. She has undergone preoperative workup including an echocardiogram showing ejection fraction of 25%, coronary angiogram, which did not show any defects or significant stenoses within her coronar y arteries, as well as echocardiogram demonstrating wall akinesis. The patient has cardiomyopathy of unknown origin as well as cholecystitis. She has been deemed a moderate risk for surgery and she is here for urgent cholecystectomy. DESCRIPTION OF PROCEDURE: Patient was brought into the operating room. After induction of endotrach eal anesthesia in supine position, her abdomen was prepped with chlorhexidine and draped sterilely. Time-out procedure was then performed according to institutional standards. Local anesthetic was inf used in skin and subcutaneous tissues of subxiphoid. She had previous laparotomy in lower abdomen as well as right subcostal incision over 20 years ago. Open trocar placement was done in the subxiphoi d area, and the abdomen was insufflated to 15 torr with carbon dioxide. Working trocars were placed after initial left upper quadrant 5 mm trocar and adhesiolysis with sharp dissection. The other troc ars were placed in the subxiphoid area after clearing the majority of the adhesions. After these tro cars were placed, the remainder of the adhesions were taken down of the omentum. The gallbladder was then brought in the field of dissection. Adhesions of the gallbladder to the duodenum and the oment um were taken down with sharp and electrocautery dissection. [place] was clearly delineate d and the cystic duct and cystic artery were triply clipped and ligated. The gallbladder was then ta felicia off the gallbladder bed using electrocautery. Hemostasis was assured. The gallbladder was taken out through the subxiphoid incision. The abdomen was deflated. The subxiphoid incision was closed using 0 Vicryl at the level of the fascia, and all 4 incisions were closed at the skin level using 4- 0 Monocryl. Dermabond was applied. The patient awakened, extubated, taken to recovery room in stable condition. There were no immediate complications. FLUIDS GIVEN: 600 cc crystalloid. COMPLICATIONS: There were no complications. /[id number]/MODL
--- NOTE | 2017-09-01 14:54 | SOAPPROG ---
STEVE Progress Note Assessment/Plan: Assessment: 09/01/2017 Patient room was visited several times and the patient was either getting ready for surgery or was in surgery Plan: 09/01/17 14:52 Objective: Vital Signs Temp Pulse Resp BP Pulse Ox 36.5 C 94 12 116/87 H 97 09/01/17 14:00 09/01/17 14:00 09/01/17 14:00 09/01/17 14:00 09/01/17 14:00 Laboratory Results 08/31/17 04:43 08/31/17 04:43 08/31/17 09/01/17 09/02/17 05:59 05:59 05:59 Intake Total 830 150 640 Output Total 20 5 Balance 810 150 635 PT 14.2 SEC (12.0-15.0) 08/31/17 04:43 INR 1.08 (0.83-1.16) 08/31/17 04:43 ICD10 Worksheet Patient Problems: Problems Problem Status Onset Dehydration Acute Elevated troponin Acute UTI (urinary tract infection) Acute
[2017-09-01] MEDS: LEVOMILNACIPRAN HCL 20 MG PO SCH (16:23)
[2017-09-01] MEDS: LEVOMILNACIPRAN HCL 40 MG PO SCH (16:25)
[2017-09-01] MEDS: hydrALAZINE 25 MG TAB PO SCH ×3 (16:29→23:25)
[2017-09-01] MEDS: CARVEDILOL 25 MG TAB PO SCH ×2 (16:30)
[2017-09-01] MEDS: LEVOTHYROXINE 25 MCG TAB PO SCH (16:33)
[2017-09-01] MEDS: BENZTROPINE MESYLATE 1 MG TAB PO SCH ×2 (16:33→20:05)
[2017-09-01] MEDS: DOCUSATE SODIUM 100 MG CAP PO SCH ×2 (16:34→20:22)
[2017-09-01] MEDS: CHOLECALCIFEROL VIT D3 2,000 UNITS TAB/CAP PO SCH (16:35)
[2017-09-01] MEDS: SENNOSIDES 1 TAB PO SCH ×2 (16:35→23:24)
[2017-09-01] MEDS: CHLORTHALIDONE 25 MG TAB PO SCH (17:10)
[2017-09-01] MEDS: LISINOPRIL 40 MG TAB PO SCH (17:12)
[2017-09-01] MEDS: HYDROCHLOROTHIAZIDE 25 MG TAB PO SCH (17:14)
--- NOTE | 2017-09-01 17:29 | HOSPPROG ---
Hospitalist Progress Note Assessment/Plan: Assessment: 52-year-old female presents with acute cholecystitis complicated by new diagnosis of chronic systolic congestive heart failure with ischemic cardiomyopathy and demand ischemia Plan: 1. Chronic systolic congestive heart failure. No evidence of acute exacerbation , ejection fraction 20-25% on echocardiogram, most likely secondary to ischemic cardiomyopathy with evidence of total occlusion of the obtuse marginal on cardiac catheterization 08/31 -counseled patient and her sister extensively regarding the diagnosis of congestive heart failure, anticipated prognosis, and potential for ejection fraction recovery if properly medically managed -patient is currently on beta-marissa, SARABJIT-inhibitor, diuretic -plan on initiating spironolactone tomorrow if BP tolerates -aspirin, statin -patient will require close outpatient cardiology follow-up -dietary counseling for new diagnosis CHF 2. Demand ischemia. Acute, elevated troponin 0.046 in the setting of cholecystitis and ischemic cardiomyopathy 3. Hypertension. Chronic, resistant, up titrated on medications including amlodipine 10, Coreg 25, chlorthalidone 25, lisinopril 40, hydralazine 25 3 times daily -will gauge response, add spironolactone tomorrow 4. Cholecystitis. Based on HIDA scan, nausea and vomiting, status post cholecystectomy by Dr. Angel 09/01 -discussed with Dr. Angel, he recommends outpatient follow-up, will be surgically ready for discharge tomorrow if other comorbid conditions stable -attempt to control nausea and vomiting with Zofran, Phenergan, Ativan as last line of therapy Diet. Advance as tolerates Prophylaxis. High risk patient, Lovenox 40 tomorrow if no evidence of bleeding Code. Full Disposition. Anticipated discharge is 09/02, pending stability of above Subjective: Patient is very concerned about her new diagnosis of CHF, reports no nausea or vomiting since her surgery Objective: Vital Signs Temp Pulse Resp BP Pulse Ox 36.7 C 100 12 106/70 94 09/01/17 15:30 09/01/17 15:30 09/01/17 15:30 09/01/17 15:30 09/01/17 15:30 Laboratory Results 08/31/17 04:43 08/31/17 04:43 08/31/17 09/01/17 09/02/17 05:59 05:59 05:59 Intake Total 830 150 640 Output Total 20 5 Balance 810 150 635 PT 14.2 SEC (12.0-15.0) 08/31/17 04:43 INR 1.08 (0.83-1.16) 08/31/17 04:43 - Time Spent With Patient Time Spent with Patient: greater than 35 minutes Time Spent with Patient: Greater than 35 minutes spent on this patients care, greater than 50% of time spent counseling, educating, and coordinating care regarding the above mentioned plan. - Pending Discharge Pending Discharge Within 24 Hours: Yes Pending Discharge Date: 09/02/17 Pending Discharge Time: 11:00 - Physical Exam Constitutional: no apparent distress, not in pain, chronically ill appearing, No uncomfortable Cardiovascular: regular rate and rhythym, no murmur, rub, or gallop, No edema Respiratory: no respiratory distress, no rales or rhonchi, clear to auscultation Gastrointestinal: distension (Mild), No normoactive bowel sounds (Hypoactive bowel sounds), No tenderness Skin: other (No erythema or ecchymoses around the surgical sites) Neurologic: AAOx3 Psychiatric: interacting appropriately, not anxious, not encephalopathic, thought process linear ICD10 Worksheet Patient Problems: Problems Problem Status Onset UTI (urinary tract infection) Acute Dehydration Acute Elevated troponin Acute
[2017-09-01] MEDS: traZODone 100 MG TAB PO SCH (23:24)
[2017-09-01] MEDS: carBAMazepine 200 MG TAB PO SCH (23:24)
[2017-09-01] MEDS: CARIPRAZINE HCL 3 MG PO SCH (23:24)
[2017-09-01] MEDS: clonazePAM 1 MG TAB PO SCH (23:25)
[2017-09-02] MEDS: LEVOTHYROXINE 25 MCG TAB PO SCH (04:41)
[2017-09-02] MEDS: ONDANSETRON 4 MG/2 ML VIAL IVP PRN (04:48)
[2017-09-02] MEDS: LORazepam 0.5 MG TAB PO PRN ×2 (04:49→22:15)
[2017-09-02] MEDS: PROMETHAZINE HCL 25 MG/ML INJ IVP PRN (06:33)
[2017-09-02] MEDS: CARVEDILOL 25 MG TAB PO SCH ×2 (09:58→18:50)
[2017-09-02] MEDS: BENZTROPINE MESYLATE 1 MG TAB PO SCH ×2 (09:59→19:45)
[2017-09-02] MEDS: LEVOMILNACIPRAN HCL 40 MG PO SCH (10:00)
[2017-09-02] MEDS: LEVOMILNACIPRAN HCL 20 MG PO SCH (10:01)
[2017-09-02] MEDS: ONDANSETRON DISINTEGRATING 4 MG TAB PO PRN (11:05)
[2017-09-02] MEDS ORDERED: PROCHLORPERAZINE MALEATE 10 MG TAB PO PRN (11:19)
[2017-09-02] MEDS ORDERED: METOCLOPRAMIDE 10 MG/2 ML VIAL IVP PRN (12:06)
[2017-09-02] MEDS ORDERED: NS W/ 20 KCl/L 1,000 ML IV SCH ×2 (12:15→14:00)
[2017-09-02] MEDS: LISINOPRIL 40 MG TAB PO SCH (12:24)
[2017-09-02] MEDS: CHLORTHALIDONE 25 MG TAB PO SCH (12:25)
[2017-09-02] MEDS: hydrALAZINE 25 MG TAB PO SCH (12:26)
--- NOTE | 2017-09-02 12:32 | ASMTCMCOM ---
CM Note CM Note Notes: Pts case discussed in morning rounds. CM spoke w/ pts therapist at [facility] and obtained updates. [facility] will need our RN to give report at time of d/c (P#: [phone] F#: [phone]). Dr. Nair will speak to the MD at [facility] today. Pt will most likely stay w/ her sister for a few days then return back to [facility]. Pt does not think HC while she stays at her sister's house will be helpful. CM to follow. Plan: Independent; RN to give report to [facility] and CM to send d/c paperwork/orders Date Signed: 09/02/2017 12:31 PM Electronically Signed By:GRACIE Ceballos
--- NOTE | 2017-09-02 13:03 | SOAPPROG ---
STEVE Progress Note Assessment/Plan: Assessment: 09/01/2017 Patient room was visited several times and the patient was either getting ready for surgery or was in surgery Plan: 09/01/17 14:52 09/02/17 13:03 pt stable we will sign off call if needed spoke w patients dad in [place] - today all ? ans Objective: Vital Signs Temp Pulse Resp BP Pulse Ox 37.1 C 98 16 134/95 H 93 09/02/17 11:01 09/02/17 11:01 09/02/17 11:01 09/02/17 11:01 09/02/17 11:01 Laboratory Results 09/02/17 03:26 09/02/17 03:26 09/01/17 09/02/17 09/03/17 05:59 05:59 05:59 Intake Total 150 1340 Output Total 5 Balance 150 1335 PT 14.2 SEC (12.0-15.0) 08/31/17 04:43 INR 1.08 (0.83-1.16) 08/31/17 04:43 ICD10 Worksheet Patient Problems: Problems Problem Status Onset Dehydration Acute Elevated troponin Acute UTI (urinary tract infection) Acute
[2017-09-02] MEDS: PANTOPRAZOLE SODIUM 40 MG VIAL IVP SCH (14:12)
[2017-09-02] MEDS: SENNOSIDES 1 TAB PO SCH ×2 (15:00→19:47)
[2017-09-02] MEDS: DOCUSATE SODIUM 100 MG CAP PO SCH ×2 (15:00→19:47)
[2017-09-02] MEDS: ATORVASTATIN CALCIUM 10 MG TAB PO SCH (15:25)
[2017-09-02] MEDS: CHOLECALCIFEROL VIT D3 2,000 UNITS TAB/CAP PO SCH (15:25)
[2017-09-02] MEDS: ASPIRIN EC 81 MG TAB PO SCH (15:25)
[2017-09-02] MEDS: CALCIUM CARBONATE 500 MG CHEWABLE TAB PO PRN (17:22)
[2017-09-02] MEDS: CARIPRAZINE HCL 3 MG PO SCH (19:46)
[2017-09-02] MEDS: traZODone 100 MG TAB PO SCH (22:16)
[2017-09-02] MEDS: clonazePAM 1 MG TAB PO SCH (22:16)
[2017-09-02] MEDS: carBAMazepine 200 MG TAB PO SCH (22:16)
--- NOTE | 2017-09-02 22:22 | HOSPPROG ---
Hospitalist Progress Note Assessment/Plan: Assessment: 52-year-old female presents with 3 weeks of nausea/vomiting/ anorexia, possibly 2/2 acute cholecystitis complicated by new diagnosis of chronic systolic congestive heart failure with ischemic cardiomyopathy and demand ischemia Plan: 1. Chronic systolic congestive heart failure. No evidence of acute exacerbation , ejection fraction 20-25% on echocardiogram, most likely secondary to ischemic cardiomyopathy with evidence of total occlusion of the obtuse marginal on cardiac catheterization 08/31 -d/w Dr. García, he reports that reduced EF is beyond that expected from her total vessel occlusion, so there is likely also a non-ischemic component as well -patient is currently on beta-marissa, SARABJIT-inhibitor, but holding diuretic given poor PO intake today and need for IV fluids -plan on initiating spironolactone as outpatient if BP tolerates -aspirin, statin -patient will require close outpatient cardiology follow-up, and patient's father was provided w/ update today by Dr. García, per patient request -dietary counseling for new diagnosis CHF 2. Demand ischemia. Acute, elevated troponin 0.046 in the setting of cholecystitis and ischemic cardiomyopathy 3. Hypertension. Chronic, resistant, up titrated on medications including amlodipine 10, Coreg 25, chlorthalidone 25, lisinopril 40, hydralazine 25 3 times daily, then patient hypotensive in setting of poor PO intake from ongoing N/V -stopped hydralazine and chlorthalidone today, monitor BP -if additional agent required, start aldactone 4. Possible Cholecystitis. Based on HIDA scan, nausea and vomiting, status post cholecystectomy by Dr. Angel 09/01 -discussed with Dr. Angel, we agree that it is possible that the original N/V symptoms may have been 2/2 a functional disorder or lingering effects of anesthesia 5. Nausea and vomiting. Acute on chronic, started approx 3 weeks ago, 2/2 either cholecystitis vs. lingering anesthesia-effects vs. functional disorder -d/w pharmacy, it is unlikely that her current psych Rx are causing these symptoms -still attempting to gain control of symptoms, use reglan 1st line (low dose given concomitant psych Rx and risk of dyskinesia), 2nd line zofran, 3rd line phenergan, 4th line compazine, 5th line ativan (seems to be most effective, suggesting possible mental health component) -attempt to move bowels, as post-op ileus could also be contributing 6. Acute post-op ileus. Passing flatus, bowel sounds hypoactive, no BM -bowel regimen, relgan 1st line 7. Bipolar disorder. Unclear type, cont current Rx -primary psychiatrist requesting update, unable to connect with her today, please reattempt tomorrow (Dr. Louann Finley, cell: [phone]) Diet. Advance as tolerates Prophylaxis. High risk patient, Lovenox 40 tomorrow if no evidence of bleeding Code. Full Disposition. Anticipated discharge is 09/03, pending stability of above High level of medical complexity, high risk of worsening morbidity and / or mortality 2/2 issues outlined above. Subjective: patient reports ongoing nausea/vomiting starting after minimal PO Intake overnight, passing flatus, no BM Objective: Vital Signs Temp Pulse Resp BP Pulse Ox 36.9 C 85 14 91/67 L 93 09/02/17 20:00 09/02/17 20:00 09/02/17 20:00 09/02/17 20:00 09/02/17 20:00 Laboratory Results 09/02/17 03:26 09/02/17 03:26 09/01/17 09/02/17 09/03/17 05:59 05:59 05:59 Intake Total 150 1340 300 Output Total 5 Balance 150 1335 300 PT 14.2 SEC (12.0-15.0) 08/31/17 04:43 INR 1.08 (0.83-1.16) 08/31/17 04:43 - Pending Discharge Pending Discharge Within 48 Hours: Yes Pending Discharge Date: 09/04/17 Pending Discharge Time: 11:00 - Physical Exam Constitutional: no apparent distress, not in pain, chronically ill appearing, uncomfortable Cardiovascular: regular rate and rhythym, no murmur, rub, or gallop Respiratory: no respiratory distress, no rales or rhonchi, clear to auscultation Gastrointestinal: normoactive bowel sounds (hypoactive bowel sounds), rebound, distension (mild), No tenderness, No guarding Skin: other (surg sites w/o erythema/induration/tenderness/ecchymoses) Neurologic: AAOx3 Psychiatric: interacting appropriately, not anxious, not encephalopathic, thought process linear ICD10 Worksheet Patient Problems: Problems Problem Status Onset Dehydration Acute Elevated troponin Acute UTI (urinary tract infection) Acute
[2017-09-03] MEDS: LEVOTHYROXINE 25 MCG TAB PO SCH (06:50)
[2017-09-03] MEDS: PANTOPRAZOLE SODIUM 40 MG VIAL IVP SCH (08:06)
[2017-09-03] MEDS: DOCUSATE SODIUM 100 MG CAP PO SCH ×2 (08:47→20:44)
[2017-09-03] MEDS: CHOLECALCIFEROL VIT D3 2,000 UNITS TAB/CAP PO SCH (08:48)
[2017-09-03] MEDS: ASPIRIN EC 81 MG TAB PO SCH (08:48)
[2017-09-03] MEDS: SENNOSIDES 1 TAB PO SCH ×2 (08:48→20:44)
[2017-09-03] MEDS: CARVEDILOL 25 MG TAB PO SCH (08:49)
[2017-09-03] MEDS: ATORVASTATIN CALCIUM 10 MG TAB PO SCH (08:49)
[2017-09-03] MEDS: BENZTROPINE MESYLATE 1 MG TAB PO SCH ×2 (08:49→20:43)
[2017-09-03] MEDS: LEVOMILNACIPRAN HCL 20 MG PO SCH (08:50)
[2017-09-03] MEDS: LEVOMILNACIPRAN HCL 40 MG PO SCH (08:51)
[2017-09-03] MEDS: LISINOPRIL 40 MG TAB PO SCH (10:08)
--- NOTE | 2017-09-03 11:38 | HOSPPROG ---
Hospitalist Progress Note Assessment/Plan: #Compensated systolic HF/I-CDM -EF 23%. Was on Coreg, Hydralazine, Lisinopril, but holding SARABJIT-I and hydral with hypotension with decreased PO intake #Hypotension: decreased PO intake. Resume SARABJIT-I at lower dose when BP tolerates. May need gentle IVFs #HTN: plan as above #Cholecystitis: chronic per HIDA. s/p lap choley 09/01 #Post-op ileus: cont bowel regimen #Bipolar d/o: psychiatrist is Dr. Finley. Plan for DC to [facility] when clinically stable #Demand ischemia: mildly elevated trop #CAD: medical management with ASA, statin, BB. Needs close cardiology FU #Hypothyroidism: LT4 #Diet: regular #DVT ppx: ambulating #Disp:cont inpatient admission for hypotension, telemetry, medication adjustment # Subjective: tired, no dizziness or lightheadedness Objective: Vital Signs Temp Pulse Resp BP Pulse Ox 36.8 C 83 16 90/65 L 94 09/03/17 07:39 09/03/17 08:49 09/03/17 07:39 09/03/17 08:49 09/03/17 07:39 Laboratory Results 09/03/17 03:33 09/03/17 03:33 09/02/17 09/03/17 09/04/17 05:59 05:59 05:59 Intake Total 1340 650 Output Total 5 Balance 1335 650 PT 14.2 SEC (12.0-15.0) 08/31/17 04:43 INR 1.08 (0.83-1.16) 08/31/17 04:43 - Time Spent With Patient Time Spent with Patient: greater than 35 minutes Time Spent with Patient: Greater than 35 minutes spent on this patients care, greater than 50% of time spent counseling, educating, and coordinating care regarding the above mentioned plan. - Physical Exam Constitutional: no apparent distress Eyes: PERRL Ears, Nose, Mouth, Throat: moist mucous membranes Cardiovascular: regular rate and rhythym, no murmur, rub, or gallop, No edema Respiratory: no respiratory distress Gastrointestinal: normoactive bowel sounds Genitourinary: no bladder fullness Skin: warm Musculoskeletal: full muscle strength Neurologic: AAOx3, CN II-XII Intact Psychiatric: interacting appropriately ICD10 Worksheet Patient Problems: Problems Problem Status Onset Dehydration Acute Elevated troponin Acute UTI (urinary tract infection) Acute
--- NOTE | 2017-09-03 11:46 | ASMTCMCOM ---
CM Note CM Note Notes: Chart reviewed. Plan in place for discharge to [facility]. Unclear as to whether or not she will spend time with her sister. CM to follow. Plan: dc to home with likely stay at [facility]. Pts case discussed in morning rounds. CM spoke w/ pts therapist at [facility] and obtained updates. [facility] will need our RN to give report at time of d/c (P#: [phone] F#: [phone]). Dr. Nair will speak to the MD at [facility] today. Pt will most likely stay w/ her sister for a few days then return back to [facility]. Pt does not think HC while she stays at her sister's house will be helpful. CM to follow. Date Signed: 09/03/2017 11:45 AM Electronically Signed By:Celsa Ramirez RN
--- NOTE | 2017-09-03 12:26 | PDCARPN ---
Cardiology Progress Note Chief Complaint: No cardiovascular complaints at present Assessment/Plan: Assessment: Patient is a 52 y/o female with past medical history remarkable for HTN, bipolar disorder, Factor V Leiden, and DM, who presents to [facility] with complaints of abdominal pains and notable elevation in blood pressure. Work up with recommendations for cholecystectomy given abdominal imaging findings. Stress testing was performed and revealed a fixed anterior/anteroseptal perfusion defect as well as severe reduction in systolic function (26%). Echocardiography revealed similar reduction in systolic function. Given new, severe reduction in systolic function (in a patient without said history), angiography was recommended. Cardiac cath noted several lesions to 50% (LAD and RCA) with occlusion of a circumflex branch. Systolic function was again noted to be severely reduced (20-25%), and recommendations to begin Coreg therapy were implemented. Patient had lap randi two days ago. Ongoing use of medical therapies given the noted LVEF suppression noted (without critical CAD to account for these findings). Today, the patient reports feeling well. No cardiovascular complaints. No dizziness or lightheadedness today, but this was mentioned as an issue in recent days. No lower extremity swelling. No PND or orthopnea. Patient only recent stopped smoking (about one week ago). Plan: (1) Would continue therapy on ACEi and beta marissa therapy given the newly noted suppression of the LVEF (2) Would continue CCB therapy for further assistance with blood pressure control (3) ASA therapy should continue for life given the CAD that was noted (4) Statins to continue for assistance with suppression of the LDL to less than 70 mg/dL (5) Would continue synthroid as at present for hypothyroid history (6) Maintain therapy on medications as at present for history of bipolar disorder (7) Patient should maintain follow up with PCP team, and allow them to assist with cardiology for follow up - repeat echo over the coming months to determine if further therapies are needed (8) Consideration for spironolactone addition in the outpatient setting - at present, hypotension is noted, but addition of this therapy with the CMP that is noted should be readdressed (9) Strong recommendations for smoking cessation to continue (10) Patient was in agreement with these plans. Subjective: No cardiovascular complaints at present Reviewed/Discussed With: hospitalist Objective: Vital Signs (8 Hrs) Temp Pulse Resp BP Pulse Ox 09/03/17 08:49 83 90/65 L 09/03/17 07:39 36.8 C 83 16 97/67 L 94 09/03/17 04:38 36.7 C 75 16 87/57 L 95 Intake/Output (24 Hrs) 09/02/17 09/03/17 09/04/17 05:59 05:59 05:59 Intake Total 1340 650 Output Total 5 Balance 1335 650 Intake: Oral (ml) 140 350 IV Intake (ml) 600 IV Infused (ml) 600 300 Lr 1,000 ml @ Per 600 Protocol IV ONCE ONE Rx#: [id number] NS W/ 20 KCl/L 1,000 ml @ 300 100 mls/hr IV CONT PARDEEP Rx#:[id number] Output: Estimated Blood Loss (ml) 5 Other: Weight 91.7 kg Number of Voids Toilet 4 Result Diagrams: 09/03/17 03:33 09/03/17 03:33 Telemetry: sinus rhythm with rate of 80 bpm Echocardiogram: LVEF of 20% - Physical Exam Constitutional: WDWN, healthy appearing, no apparent distress, obese Eyes: PERRL, EOMI Ears, Nose, Mouth, Throat: moist mucous membranes Cardiovascular: regular rate and rhythm, no murmurs, no rubs, pulses symmetric bilat, No jugular vein distention Peripheral Pulses: 2+: dorsalis-pedis (R), dorsalis-pedis (L) Respiratory: clear to auscultate bilat, no crackles, no wheezes Gastrointestinal: tenderness Skin: no edema Musculoskeletal: no muscular tenderness, no joint effusions Neurologic: AAOx3, CN II-XII grossly intact Psychiatric: cooperative, interactive, following commands ICD10 Worksheet Patient Problems: Problems Problem Status Onset Dehydration Acute Elevated troponin Acute UTI (urinary tract infection) Acute
--- NOTE | 2017-09-03 12:30 | SOAPPROG ---
SOAP Progress Note Assessment/Plan: Assessment/Plan: 52 y.o with symptomatic cholelithiasis Cardiomyopathy EF 20-25%. Coronary cath - no limiting stenosis/sclerosis Pathology consistent with disease Hypotensive Tolerating diet RRR CTA Abd soft Nt Incisions c/d No peripheral edema Doing well post cholecystectomy. Still hypotensive Tolerating diet May shower No lifting >25 lbs for 7 days post op F/u in office in 1-2 weeks 09/03/17 12:28 Objective: Vital Signs Temp Pulse Resp BP Pulse Ox 36.8 C 83 16 90/65 L 94 09/03/17 07:39 09/03/17 08:49 09/03/17 07:39 09/03/17 08:49 09/03/17 07:39 Laboratory Results 09/03/17 03:33 09/03/17 03:33 09/02/17 09/03/17 09/04/17 05:59 05:59 05:59 Intake Total 1340 650 Output Total 5 Balance 1335 650 PT 14.2 SEC (12.0-15.0) 08/31/17 04:43 INR 1.08 (0.83-1.16) 08/31/17 04:43 ICD10 Worksheet Patient Problems: Problems Problem Status Onset Dehydration Acute Elevated troponin Acute UTI (urinary tract infection) Acute
[2017-09-03] MEDS ORDERED: CARVEDILOL 25 MG TAB PO SCH (14:59)
[2017-09-03] MEDS: MAGNESIUM HYDROXIDE 30 ML UDCUP PO PRN (17:27)
[2017-09-03] MEDS: CARVEDILOL 6.25 MG TAB PO SCH (18:27)
[2017-09-03] MEDS: LORazepam 0.5 MG TAB PO PRN (20:49)
[2017-09-03] MEDS: CARIPRAZINE HCL 3 MG PO SCH (22:52)
[2017-09-03] MEDS: traZODone 100 MG TAB PO SCH (22:53)
[2017-09-03] MEDS: carBAMazepine 200 MG TAB PO SCH (22:53)
[2017-09-03] MEDS: clonazePAM 1 MG TAB PO SCH (22:53)
[2017-09-04] MEDS: LEVOTHYROXINE 25 MCG TAB PO SCH (05:22)
[2017-09-04] MEDS: ONDANSETRON DISINTEGRATING 4 MG TAB PO PRN (05:55)
[2017-09-04] MEDS ORDERED: LISINOPRIL 20 MG TAB PO SCH (09:00)
--- NOTE | 2017-09-04 09:21 | PDCARPN ---
Cardiology Progress Note Chief Complaint: Nausea was noted today/this morning Assessment/Plan: Assessment: 09-04-17 Patient with complaints of nausea this morning. Ambulation yesterday in the halls without symptoms reported. No complaints of chest pains or pressure. No PND or orthopnea. Hypotension was noted late last night, but hypertension was noted this morning. 09-03-17 Patient is a 52 y/o female with past medical history remarkable for HTN, bipolar disorder, Factor V Leiden, and DM, who presents to [facility] with complaints of abdominal pains and notable elevation in blood pressure. Work up with recommendations for cholecystectomy given abdominal imaging findings. Stress testing was performed and revealed a fixed anterior/anteroseptal perfusion defect as well as severe reduction in systolic function (26%). Echocardiography revealed similar reduction in systolic function. Given new, severe reduction in systolic function (in a patient without said history), angiography was recommended. Cardiac cath noted several lesions to 50% (LAD and RCA) with occlusion of a circumflex branch. Systolic function was again noted to be severely reduced (20-25%), and recommendations to begin Coreg therapy were implemented. Patient had lap randi two days ago. Ongoing use of medical therapies given the noted LVEF suppression noted (without critical CAD to account for these findings). Today, the patient reports feeling well. No cardiovascular complaints. No dizziness or lightheadedness today, but this was mentioned as an issue in recent days. No lower extremity swelling. No PND or orthopnea. Patient only recent stopped smoking (about one week ago). Plan: (1) Aggressive antihypertensive therapy should continue (ACEi, beta blockers, and CCB) - blood pressure elevations were noted today, but uncertain what part the nausea and emesis play with the elevation noted (2) ASA should continue given the noted CAD (non critical, but present nonetheless) (3) Statins should continue for HLP in setting of CAD (4) HTN and tobacco use likely played some part in the CMP that is noted, but a clear etiology for this diagnosis is not present. (5) Smoking cessation to continue (6) As mentioned yesterday, addition of spironolactone for the CMP noted is recommended, but given the episodes of hypotension that continue to be noted, would not add at this time (7) Synthroid should continue for hypothyroid history Subjective: Patient with nausea today Objective: Vital Signs (8 Hrs) Temp Pulse Resp BP Pulse Ox 09/04/17 07:18 143/109 H 09/04/17 07:16 36.7 C 85 18 139/125 H 93 09/04/17 03:57 36.7 C 83 16 91/61 L 92 Intake/Output (24 Hrs) 09/03/17 09/04/17 09/05/17 05:59 05:59 05:59 Intake Total 650 850 Balance 650 850 Intake: Oral (ml) 350 850 IV Infused (ml) 300 NS W/ 20 KCl/L 1,000 ml @ 300 100 mls/hr IV CONT PARDEEP Rx#:[id number] Other: Number of Voids Toilet 4 Result Diagrams: 09/03/17 03:33 09/03/17 03:33 Telemetry: sinus rhythm with rates of 90-95 bpm. T wave inversions are still noted ( unchanged from yesterday) - Physical Exam Constitutional: obese, apparent distress (nausea) Eyes: PERRL, EOMI Ears, Nose, Mouth, Throat: moist mucous membranes Cardiovascular: regular rate and rhythm, no murmurs, no rubs, no gallops, pulses symmetric bilat Peripheral Pulses: 2+: dorsalis-pedis (R), dorsalis-pedis (L) Respiratory: clear to auscultate bilat, no crackles, no wheezes Gastrointestinal: tenderness Skin: no edema Neurologic: AAOx3, CN II-XII grossly intact Psychiatric: cooperative, interactive, following commands ICD10 Worksheet Patient Problems: Problems Problem Status Onset Dehydration Acute Elevated troponin Acute UTI (urinary tract infection) Acute
[2017-09-04] MEDS: PANTOPRAZOLE SODIUM 40 MG VIAL IVP SCH (10:46)
[2017-09-04] MEDS ORDERED: ONDANSETRON DISINTEGRATING 4 MG TAB PO PRN (11:16)
[2017-09-04] MEDS ORDERED: MAG HYDROX/AL HYDROX/SIMETH 30 ML UDCUP PO ONE (11:17)
[2017-09-04] MEDS ORDERED: LIDOCAINE 2% VISCOUS 15 ML UDCUP PO ONE (11:17)
[2017-09-04] MEDS ORDERED: HYOSCYAMINE SULFATE 0.125 MG TAB PO ONE (11:17)
--- NOTE | 2017-09-04 11:22 | HOSPPROG ---
Hospitalist Progress Note Assessment/Plan: #Compensated systolic HF/I-CDM -EF 23%. Resume Coreg and ACEi today now. May benefit from Aldactone if BP tolerates. #Nausea: may be from psych meds (CINTHIA for Vraylar) vs constipation. No BM in 3 weeks. Aggressive bowel regimen #Hypotension: resolved. Now hypertensive #Hypertension: this morning. Resume SARABJIT-I at lower dose, BB. If still elevated, add Norvasc #Cholecystitis: chronic per HIDA. s/p lap choley 09/01. FU with Jeanne in 2 weeks #Post-op ileus: cont bowel regimen #Bipolar d/o: psychiatrist is Dr. Finley. Plan for DC to [facility] when clinically stable #Demand ischemia: mildly elevated trop #CAD: medical management with ASA, statin, BB. Needs close cardiology FU #Hypothyroidism: LT4 #Diet: regular #DVT ppx: ambulating #Disp:cont inpatient admission for hypotension, telemetry, medication adjustment # Subjective: nauseated this morning. "stomach feels empty" Objective: Vital Signs Temp Pulse Resp BP Pulse Ox 36.7 C 85 18 143/109 H 93 09/04/17 07:16 09/04/17 07:16 09/04/17 07:16 09/04/17 07:18 09/04/17 07:16 Laboratory Results 09/03/17 03:33 09/03/17 03:33 09/03/17 09/04/17 09/05/17 05:59 05:59 05:59 Intake Total 650 850 Balance 650 850 PT 14.2 SEC (12.0-15.0) 08/31/17 04:43 INR 1.08 (0.83-1.16) 08/31/17 04:43 - Time Spent With Patient Time Spent with Patient: greater than 35 minutes Time Spent with Patient: Greater than 35 minutes spent on this patients care, greater than 50% of time spent counseling, educating, and coordinating care regarding the above mentioned plan. - Physical Exam Constitutional: no apparent distress Eyes: PERRL Ears, Nose, Mouth, Throat: moist mucous membranes Cardiovascular: regular rate and rhythym, No edema Respiratory: no respiratory distress Gastrointestinal: normoactive bowel sounds, soft, non-tender abdomen, No tenderness Genitourinary: No tinoco in urethra Skin: warm Musculoskeletal: full muscle strength Neurologic: CN II-XII Intact Psychiatric: flat affect ICD10 Worksheet Patient Problems: Problems Problem Status Onset Dehydration Acute Elevated troponin Acute UTI (urinary tract infection) Acute
[2017-09-04] MEDS ORDERED: hydrALAZINE 20 MG/ML VIAL IVP PRN (14:18)
[2017-09-04] MEDS: DOCUSATE SODIUM 100 MG CAP PO SCH ×2 (14:36→21:11)
[2017-09-04] MEDS: BENZTROPINE MESYLATE 1 MG TAB PO SCH ×2 (14:37→23:05)
[2017-09-04] MEDS: SENNOSIDES 1 TAB PO SCH ×2 (14:38→21:10)
[2017-09-04] MEDS: ASPIRIN EC 81 MG TAB PO SCH (14:38)
[2017-09-04] MEDS: CARVEDILOL 25 MG TAB PO SCH ×2 (14:39→19:40)
[2017-09-04] MEDS: LEVOMILNACIPRAN HCL 20 MG PO SCH (14:40)
[2017-09-04] MEDS: LEVOMILNACIPRAN HCL 40 MG PO SCH (14:41)
[2017-09-04] MEDS: CARVEDILOL 6.25 MG TAB PO SCH (15:29)
--- NOTE | 2017-09-04 16:08 | ASMTCMCOM ---
CM Note CM Note Notes: Met with patient to review dc plan of care. She tells me this afternoon she is feeling better. She is to go to [facility] upon discharge. She states they can get her or she can get an uber. Cm available should other needs arise Will need to send dc paperwork to [facility]. Plan: dc to [facility] Date Signed: 09/04/2017 04:07 PM Electronically Signed By:Celsa Ramirez RN
[2017-09-04] MEDS: LACTULOSE 20 GM/30 ML UDCUP PO PRN (18:56)
[2017-09-04] MEDS: CHOLECALCIFEROL VIT D3 2,000 UNITS TAB/CAP PO SCH (21:11)
[2017-09-04] MEDS: ATORVASTATIN CALCIUM 10 MG TAB PO SCH (21:11)
[2017-09-04] MEDS: CARIPRAZINE HCL 3 MG PO SCH (23:04)
[2017-09-04] MEDS: carBAMazepine 200 MG TAB PO SCH (23:04)
[2017-09-04] MEDS: clonazePAM 1 MG TAB PO SCH (23:05)
[2017-09-04] MEDS: traZODone 100 MG TAB PO SCH (23:05)
[2017-09-05] MEDS: LORazepam 0.5 MG TAB PO PRN (02:25)
[2017-09-05] MEDS: LEVOTHYROXINE 25 MCG TAB PO SCH (05:33)
[2017-09-05] MEDS: ONDANSETRON 4 MG/2 ML VIAL IVP PRN ×3 (05:34→20:57)
[2017-09-05] MEDS ORDERED: LISINOPRIL 5 MG TAB PO SCH (09:00)
[2017-09-05] MEDS ORDERED: HYOSCYAMINE SULFATE 0.125 MG TAB PO ONE (09:56)
[2017-09-05] MEDS ORDERED: LIDOCAINE 2% VISCOUS 15 ML UDCUP PO ONE (09:56)
[2017-09-05] MEDS ORDERED: MAG HYDROX/AL HYDROX/SIMETH 30 ML UDCUP PO ONE (09:56)
--- NOTE | 2017-09-05 09:56 | HOSPPROG ---
Hospitalist Progress Note Assessment/Plan: #Compensated systolic HF/I-CDM -EF 23%. Resume Coreg and ACEi May benefit from Aldactone if BP tolerates. #Nausea: AXR shows constipation. Vraylar/Fetzima can cause. Suppository, enema today #Constipation: aggressive bowel regimen, ambulate #Hypertension: SARABJIT-I. BB. Will add back Norvasc if needed #Cholecystitis: chronic per HIDA. s/p lap choley 09/01. FU with Jeanne in 2 weeks #Post-op ileus: cont bowel regimen #Bipolar d/o: psychiatrist is Dr. Finley. Plan for DC to [facility] when clinically stable #Demand ischemia: mildly elevated trop #CAD: medical management with ASA, statin, BB. Needs close cardiology FU #Hypothyroidism: LT4 #Hypotension: while on multiple anti-hypertensives. Now resolved #Diet: regular #DVT ppx: ambulating #Disp:cont inpatient admission for hypotension, telemetry, medication adjustment # Subjective: "stomach upset after cereal". No vomiting Objective: Vital Signs Temp Pulse Resp BP Pulse Ox 36.7 C 87 14 89/73 L 92 09/05/17 07:30 09/05/17 07:30 09/05/17 07:30 09/05/17 07:30 09/05/17 07:30 Laboratory Results 09/03/17 03:33 09/03/17 03:33 09/04/17 09/05/17 09/06/17 05:59 05:59 05:59 Intake Total 850 1200 Balance 850 1200 PT 14.2 SEC (12.0-15.0) 08/31/17 04:43 INR 1.08 (0.83-1.16) 08/31/17 04:43 - Physical Exam Constitutional: no apparent distress Eyes: PERRL Ears, Nose, Mouth, Throat: moist mucous membranes Cardiovascular: regular rate and rhythym Respiratory: no respiratory distress, No expiratory wheeze, No inspiratory crackles Gastrointestinal: normoactive bowel sounds (quiet BS, but present throughout), soft, non-tender abdomen, No tenderness Genitourinary: no bladder fullness Skin: warm Musculoskeletal: full muscle strength Neurologic: AAOx3, CN II-XII Intact ICD10 Worksheet Patient Problems: Problems Problem Status Onset Dehydration Acute Elevated troponin Acute UTI (urinary tract infection) Acute
[2017-09-05] MEDS: PROMETHAZINE HCL 25 MG/ML INJ IVP PRN ×2 (09:57→18:14)
--- NOTE | 2017-09-05 12:26 | ASMTCMCOM ---
CM Note CM Note Notes: 09/05/2017 Case Management Note Met w/ RNs from [facility]. 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 Case Management to fax d/c paperwork to the [facility] [phone]. Case Management to follow. Date Signed: 09/05/2017 12:25 PM Electronically Signed By:Felicia Corley RN
[2017-09-05] MEDS: ASPIRIN EC 81 MG TAB PO SCH (13:59)
[2017-09-05] MEDS: CARVEDILOL 25 MG TAB PO SCH ×2 (13:59→20:56)
[2017-09-05] MEDS: LEVOMILNACIPRAN HCL 20 MG PO SCH (14:01)
[2017-09-05] MEDS: CHOLECALCIFEROL VIT D3 2,000 UNITS TAB/CAP PO SCH (14:01)
[2017-09-05] MEDS: BENZTROPINE MESYLATE 1 MG TAB PO SCH (14:01)
[2017-09-05] MEDS: DOCUSATE SODIUM 100 MG CAP PO SCH (14:01)
[2017-09-05] MEDS: PANTOPRAZOLE SODIUM 40 MG TAB PO SCH (14:02)
[2017-09-05] MEDS: LEVOMILNACIPRAN HCL 40 MG PO SCH (14:02)
[2017-09-05] MEDS: SENNOSIDES 1 TAB PO SCH (14:17)
[2017-09-05] MEDS: CALCIUM CARBONATE 500 MG CHEWABLE TAB PO PRN (14:39)
[2017-09-05] MEDS: ATORVASTATIN CALCIUM 10 MG TAB PO SCH (17:17)
[2017-09-05] MEDS: MAGNESIUM HYDROXIDE 30 ML UDCUP PO PRN (18:14)
[2017-09-05] MEDS: LACTULOSE 20 GM/30 ML UDCUP PO PRN (22:52)
[2017-09-06] MEDS: carBAMazepine 200 MG TAB PO SCH ×2 (00:22→20:42)
[2017-09-06] MEDS: BENZTROPINE MESYLATE 1 MG TAB PO SCH ×3 (00:22→20:38)
[2017-09-06] MEDS: traZODone 100 MG TAB PO SCH ×2 (00:22→20:40)
[2017-09-06] MEDS: DOCUSATE SODIUM 100 MG CAP PO SCH ×3 (00:23→20:39)
[2017-09-06] MEDS: clonazePAM 1 MG TAB PO SCH ×2 (00:23→20:41)
[2017-09-06] MEDS: CARIPRAZINE HCL 3 MG PO SCH ×2 (00:23→20:46)
[2017-09-06] MEDS: SENNOSIDES 1 TAB PO SCH ×2 (00:23→09:14)
[2017-09-06] MEDS: PROMETHAZINE HCL 25 MG/ML INJ IVP PRN (00:24)
[2017-09-06] MEDS: ONDANSETRON 4 MG/2 ML VIAL IVP PRN ×2 (03:51→11:51)
[2017-09-06] MEDS: LORazepam 2 MG/ML INJ IVP PRN (04:17)
[2017-09-06] MEDS: LEVOTHYROXINE 25 MCG TAB PO SCH (05:18)
[2017-09-06] MEDS ORDERED: PEG 3350/NA SULF,BICARB,CL/KCL (GAVILYTE-G) 4000 ML BTL PO ONE (08:20)
[2017-09-06] MEDS ORDERED: LISINOPRIL 5 MG TAB PO SCH (09:00)
[2017-09-06] MEDS: LEVOMILNACIPRAN HCL 40 MG PO SCH (09:05)
[2017-09-06] MEDS: LEVOMILNACIPRAN HCL 20 MG PO SCH (09:06)
[2017-09-06] MEDS: CARVEDILOL 25 MG TAB PO SCH ×2 (09:14→20:40)
[2017-09-06] MEDS: CHOLECALCIFEROL VIT D3 2,000 UNITS TAB/CAP PO SCH (10:32)
[2017-09-06] MEDS: PANTOPRAZOLE SODIUM 40 MG TAB PO SCH (13:31)
[2017-09-06] MEDS: ASPIRIN EC 81 MG TAB PO SCH (13:38)
[2017-09-06] MEDS: ATORVASTATIN CALCIUM 10 MG TAB PO SCH (13:38)
--- NOTE | 2017-09-06 15:03 | HOSPPROG ---
Hospitalist Progress Note Assessment/Plan: #Compensated systolic HF/I-CDM -EF 23%. Resume Coreg and ACEi May benefit from Aldactone if BP tolerates. #Nausea: due to constipation #Constipation: AXR shows constipation. May be compounded by recent abd surgery. Vraylar/Fetzima can cause constipation. Passing flatus and bowel signs present. Add Golytely today, ambulating #Hypertension: SARABJIT-I. BB. Will not restart Norvasc now with soft BP #Cholecystitis: chronic per HIDA. s/p lap choley 09/01. FU with Jeanne in 2 weeks #Bipolar d/o: psychiatrist is Dr. Finley. Plan for DC to [facility] when clinically stable #Demand ischemia: mildly elevated trop #CAD: medical management with ASA, statin, BB. 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 Now resolved #Diet: regular #DVT ppx: ambulating #Disp:cont inpatient admission for hypotension, telemetry, medication adjustment # Subjective: mild nausea this morning. Passing flatus Objective: Vital Signs Temp Pulse Resp BP Pulse Ox 36.7 C 78 12 104/86 H 91 L 09/06/17 12:00 09/06/17 12:00 09/06/17 12:00 09/06/17 12:00 09/06/17 12:00 Laboratory Results 09/03/17 03:33 09/03/17 03:33 09/05/17 09/06/17 09/07/17 05:59 05:59 05:59 Intake Total 1200 500 800 Balance 1200 500 800 PT 14.2 SEC (12.0-15.0) 08/31/17 04:43 INR 1.08 (0.83-1.16) 08/31/17 04:43 - Physical Exam Constitutional: no apparent distress Eyes: PERRL Ears, Nose, Mouth, Throat: moist mucous membranes, hearing normal Cardiovascular: regular rate and rhythym, no murmur, rub, or gallop, No edema Respiratory: no respiratory distress, no rales or rhonchi Gastrointestinal: normoactive bowel sounds, soft, non-tender abdomen, No tenderness, No distension Genitourinary: No tinoco in urethra Skin: warm Musculoskeletal: full muscle strength Neurologic: AAOx3, CN II-XII Intact Psychiatric: flat affect ICD10 Worksheet Patient Problems: Problems Problem Status Onset Dehydration Acute Elevated troponin Acute UTI (urinary tract infection) Acute
[2017-09-06] MEDS: LACTULOSE 20 GM/30 ML UDCUP PO PRN ×2 (15:24→20:45)
[2017-09-07] MEDS: SENNOSIDES 1 TAB PO SCH ×3 (00:15→21:32)
[2017-09-07] MEDS: ONDANSETRON 4 MG/2 ML VIAL IVP PRN ×2 (00:48→07:56)
[2017-09-07] MEDS: PROMETHAZINE HCL 25 MG/ML INJ IVP PRN (04:23)
[2017-09-07] MEDS: LEVOTHYROXINE 25 MCG TAB PO SCH (04:23)
[2017-09-07] MEDS: LORazepam 2 MG/ML INJ IVP PRN (08:21)
[2017-09-07] MEDS ORDERED: PROMETHAZINE HCL 25 MG/ML INJ IVP PRN (10:15)
--- NOTE | 2017-09-07 10:18 | HOSPPROG ---
Hospitalist Progress Note Assessment/Plan: #Nausea: > 1 month. Suspect psych meds. Not on opioids. -Discussed with Dr. Cruz who agrees with treatment of constipation, PPI for reflux. Having small BMs with go-lytely. AXR 09/06 without obstruction, repeating today. Cautious with anti-emetics with h/o tardive dyskinesia. Trial scop patch, Ativan. DC Phenergan, avoid Reglan. -if not improved, formal GI consult #Constipation: -Compounded by recent abd surgery. Vraylar/Fetzima can cause constipation. Not on chronic opioids. Passing some stool. -Repeat AXR today; if no obstruction, will trial Amitiza, per Nancy recs #Compensated systolic HF/I-CDM -EF 23%. Resume Coreg and ACEi. BP will not tolerate Aldactone now #Hypertension: SARABJIT-I. BB. Will not restart Norvasc now with soft BP #Cholecystitis: chronic per HIDA. s/p lap choley 09/01. FU with Jeanne in 2 weeks #Bipolar d/o: psychiatrist is Dr. Finley. (I have left message for her) Plan for DC to [facility] when clinically stable #Demand ischemia: mildly elevated trop. #CAD: medical management with ASA, statin, BB. Needs close cardiology FU #Reported h/o Israel's esophagus: on PPI. Will need repeat endoscopy #Hypothyroidism: LT4 #Hypotension: while on multiple anti-hypertensives. Now resolved #Diet: regular #DVT ppx: ambulating #Disp:cont inpatient admission for hypotension, telemetry, medication adjustment Time spent on visit: 45 min with patient bedside, discussing on IDT rounds and consulting with Dr. Cruz Subjective: small loose stools this morning. Still nauseated Objective: Vital Signs Temp Pulse Resp BP Pulse Ox 36.4 C 93 14 121/87 H 95 09/07/17 07:46 09/07/17 07:46 09/07/17 03:28 09/07/17 07:46 09/07/17 07:46 Laboratory Results 09/03/17 03:33 09/03/17 03:33 09/06/17 09/07/17 09/08/17 05:59 05:59 05:59 Intake Total 500 1020 Output Total 2 Balance 500 1018 PT 14.2 SEC (12.0-15.0) 08/31/17 04:43 INR 1.08 (0.83-1.16) 08/31/17 04:43 - Physical Exam Constitutional: no apparent distress Eyes: PERRL Ears, Nose, Mouth, Throat: moist mucous membranes Cardiovascular: regular rate and rhythym, no murmur, rub, or gallop Respiratory: no respiratory distress, no rales or rhonchi Gastrointestinal: normoactive bowel sounds, soft, non-tender abdomen, No tenderness, No distension Genitourinary: no bladder fullness Skin: warm Musculoskeletal: full muscle strength, no muscle tenderness Neurologic: AAOx3, CN II-XII Intact Psychiatric: interacting appropriately, depressed, flat affect ICD10 Worksheet Patient Problems: Problems Problem Status Onset Dehydration Acute Elevated troponin Acute UTI (urinary tract infection) Acute
[2017-09-07] MEDS: DOCUSATE SODIUM 100 MG CAP PO SCH ×2 (10:52→21:32)
[2017-09-07] MEDS: LISINOPRIL 5 MG TAB PO SCH (10:53)
[2017-09-07] MEDS: BENZTROPINE MESYLATE 1 MG TAB PO SCH (10:54)
[2017-09-07] MEDS: CARVEDILOL 25 MG TAB PO SCH ×2 (10:54→18:24)
[2017-09-07] MEDS: PANTOPRAZOLE SODIUM 40 MG TAB PO SCH (10:55)
[2017-09-07] MEDS: LEVOMILNACIPRAN HCL 40 MG PO SCH (14:41)
[2017-09-07] MEDS: LEVOMILNACIPRAN HCL 20 MG PO SCH (14:42)
[2017-09-07] MEDS: ASPIRIN EC 81 MG TAB PO SCH (14:43)
[2017-09-07] MEDS: ATORVASTATIN CALCIUM 10 MG TAB PO SCH (14:43)
[2017-09-07] MEDS ORDERED: diphenhydrAMINE 25 MG CAP PO PRN (15:55)
--- NOTE | 2017-09-07 16:19 | ASMTCMCOM ---
CM Note CM Note Notes: 09/07/2017 Case Management Note Discussed pt during rounds this morning. Pt continues to experience nausea and constipation. Case Management d/c poc: to [facility] Case Management to fax d/c orders to [phone]. Case Management to follow. Date Signed: 09/07/2017 04:18 PM Electronically Signed By:Felicia Corley RN
[2017-09-07] MEDS: CHOLECALCIFEROL VIT D3 2,000 UNITS TAB/CAP PO SCH (17:01)
[2017-09-07] MEDS: LACTULOSE 20 GM/30 ML UDCUP PO PRN (23:55)
[2017-09-08] MEDS: BENZTROPINE MESYLATE 1 MG TAB PO SCH ×4 (01:08→22:45)
[2017-09-08] MEDS: carBAMazepine 200 MG TAB PO SCH ×2 (01:08→22:44)
[2017-09-08] MEDS: clonazePAM 1 MG TAB PO SCH ×2 (01:08→22:43)
[2017-09-08] MEDS: traZODone 100 MG TAB PO SCH ×2 (01:09→22:43)
[2017-09-08] MEDS: CARIPRAZINE HCL 3 MG PO SCH ×2 (01:10→22:44)
[2017-09-08] MEDS: LEVOTHYROXINE 25 MCG TAB PO SCH (05:30)
[2017-09-08] MEDS: ONDANSETRON 4 MG/2 ML VIAL IVP PRN (05:30)
[2017-09-08] MEDS: PANTOPRAZOLE SODIUM 40 MG TAB PO SCH (06:17)
[2017-09-08] MEDS: CALCIUM CARBONATE 500 MG CHEWABLE TAB PO PRN ×2 (08:52→13:14)
[2017-09-08] MEDS: LORazepam 2 MG/ML INJ IVP PRN ×2 (08:52→14:59)
[2017-09-08] MEDS ORDERED: PROMETHAZINE HCL 25 MG/ML INJ IVP ONE (09:30)
--- NOTE | 2017-09-08 09:48 | HOSPPROG ---
Hospitalist Progress Note Assessment/Plan: # ongoing N/V, constipation: s/p cholecystectomy; loop of colon unclear significance - caution with anti-emetics given hx tardive dyskinesia - doubt UTI given culture findings, but pyuria on UA - recheck labs today - trial of Amitiza per GI recs - may need formal consult # chronic cholecystitis s/p cholecystectomy - f/u Dr Angel 2 weeks # chronic compensated sCHF, EF 23% - cont lisinopril/coreg # CAD s/p cath without intervention - asa/statin/SARABJIT/BB # htn - BB, sarabjit # bipolar d/o - Dr Finley as outpatient - [facility] on dc - benztropine for hx dyskinesia - tegretol, cariprazine, klonopin, levomilnacipran # hx Israel's esophagitis - outpatient f/u # hypothyroid - synthroid, TSH ok # dvt ppx - SCDs, ambulation Subjective: ongoing nausea; emesis this morning, received ativan Objective: Vital Signs Temp Pulse Resp BP Pulse Ox 36.7 C 88 12 133/92 H 96 09/08/17 08:00 09/08/17 08:00 09/08/17 08:00 09/08/17 08:00 09/08/17 08:00 Laboratory Results 09/03/17 03:33 09/03/17 03:33 09/07/17 09/08/17 09/09/17 05:59 05:59 05:59 Intake Total 1020 500 Output Total 2 Balance 1018 500 PT 14.2 SEC (12.0-15.0) 08/31/17 04:43 INR 1.08 (0.83-1.16) 08/31/17 04:43 chart reviewed AXR's reviewed - Physical Exam Constitutional: uncomfortable, other (somnolent but partiipating) Cardiovascular: regular rate and rhythym, no murmur, rub, or gallop Respiratory: no rales or rhonchi, clear to auscultation Gastrointestinal: normoactive bowel sounds, soft, non-tender abdomen ICD10 Worksheet Patient Problems: Problems Problem Status Onset Dehydration Acute Elevated troponin Acute UTI (urinary tract infection) Acute
[2017-09-08 10:07] LABS: PLATELET COUNT 195 10^3/uL (150-400)
[2017-09-08] MEDS: LUBIPROSTONE 8 MCG CAP PO SCH ×2 (10:23→21:15)
[2017-09-08] MEDS: CHOLECALCIFEROL VIT D3 2,000 UNITS TAB/CAP PO SCH (14:52)
[2017-09-08] MEDS: ATORVASTATIN CALCIUM 10 MG TAB PO SCH (15:11)
[2017-09-08] MEDS: SENNOSIDES 1 TAB PO SCH (15:12)
[2017-09-08] MEDS: DOCUSATE SODIUM 100 MG CAP PO SCH ×2 (15:12→21:16)
[2017-09-08] MEDS: LEVOMILNACIPRAN HCL 40 MG PO SCH (15:12)
[2017-09-08] MEDS: LEVOMILNACIPRAN HCL 20 MG PO SCH (15:12)
[2017-09-08] MEDS: CARVEDILOL 25 MG TAB PO SCH ×2 (16:20→16:33)
[2017-09-08] MEDS: ASPIRIN EC 81 MG TAB PO SCH (16:34)
[2017-09-08] MEDS: LISINOPRIL 5 MG TAB PO SCH (16:34)
[2017-09-09] MEDS: SENNOSIDES 1 TAB PO SCH ×2 (02:45→16:18)
[2017-09-09] MEDS: LORazepam 2 MG/ML INJ IVP PRN ×5 (04:00→22:17)
[2017-09-09] MEDS: CALCIUM CARBONATE 500 MG CHEWABLE TAB PO PRN (08:12)
[2017-09-09] MEDS: CARVEDILOL 25 MG TAB PO SCH ×2 (09:16→23:26)
[2017-09-09] MEDS: LUBIPROSTONE 8 MCG CAP PO SCH (09:16)
[2017-09-09] MEDS ORDERED: PROMETHAZINE HCL 25 MG/ML INJ IVP ONE (09:31)
--- NOTE | 2017-09-09 09:40 | HOSPPROG ---
Hospitalist Progress Note Assessment/Plan: # ongoing N/V, constipation: s/p cholecystectomy; loop of colon unclear significance - caution with anti-emetics given hx tardive dyskinesia - no clear improvement with amitiza - discussed with Dr Cruz - he will consult today # chronic cholecystitis s/p cholecystectomy - f/u Dr Angel 2 weeks # chronic compensated sCHF, EF 23% - cont lisinopril/coreg # CAD s/p cath without intervention - asa/statin/SARABJIT/BB # htn - BB, sarabjit # bipolar d/o - Dr Finley as outpatient - [facility] on dc - benztropine for hx dyskinesia - tegretol, cariprazine, klonopin, levomilnacipran # hx Israel's esophagitis - she is unclear if this is a true diagnosis # hypothyroid - synthroid, TSH ok # dvt ppx - SCDs, ambulation Subjective: felt slightly better yesterday, still vomiting today Objective: Vital Signs Temp Pulse Resp BP Pulse Ox 36.7 C 82 13 111/72 93 09/09/17 07:47 09/09/17 07:47 09/09/17 07:47 09/09/17 07:47 09/09/17 07:47 Microbiology 09/08/17 13:00 Gastrointestinal Tract Panel (PCR) - Final Stool No Organism Detected Laboratory Results 09/08/17 09:52 09/08/17 09:52 09/08/17 09/09/17 09/10/17 05:59 05:59 05:59 Intake Total 500 350 Output Total 220 Balance 500 130 PT 14.2 SEC (12.0-15.0) 08/31/17 04:43 INR 1.08 (0.83-1.16) 08/31/17 04:43 tele personally reviewed - Physical Exam Constitutional: uncomfortable, other (vomiting in trash can) Cardiovascular: regular rate and rhythym, no murmur, rub, or gallop Respiratory: no respiratory distress, no rales or rhonchi, clear to auscultation Gastrointestinal: normoactive bowel sounds, soft, non-tender abdomen, no palpable masses ICD10 Worksheet Patient Problems: Problems Problem Status Onset Dehydration Acute Elevated troponin Acute UTI (urinary tract infection) Acute
[2017-09-09] MEDS ORDERED: NS 1,000 ML IV SCH (09:45)
[2017-09-09] MEDS: SCOPOLAMINE HYDROBROMIDE 1 MG/3 DAYS PATCH TD SCH (12:05)
--- NOTE | 2017-09-09 12:46 | ASMTCMCOM ---
CM Note CM Note Notes: Pts case discussed in morning rounds. Pt will have a GI consult today. Pts continues to feel nauseous. CM called bed board and had them add pts PCP in her chart in [facility]. Pt will d/c to [facility] when medically stable. CM to fax d/c orders to [phone]. CM to follow. Plan: [facility] Date Signed: 09/09/2017 12:45 PM Electronically Signed By:GRACIE Ceballos
--- NOTE | 2017-09-09 12:54 | GCON ---
[f rep st] CONSULTATION REFERRING PHYSICIAN: Joel Hall MD Dear Dr. Hall: Thank you for asking me to evaluate Ms. Sierra in consultation for a chief complaint of predominantly nausea. She is a pleasant 52-year-old female who was been nauseous since early August. She describes some upper abdominal discomfort with meals, but mostly she describes no appetite and feeling "queasy ." She has been somewhat constipated, and it was hypothesized that maybe her nausea was related to c onstipation. She describes a bowel movement frequency that is been somewhat less than usual. The st ool has been a bit hard. Having a bowel movement, even with the use of laxatives, however, does not resolve the nausea. She has no diarrhea, hematochezia, or melena. She denies any reflux or dysphagi a, but interestingly has said that Protonix has helped. IV Zofran has been the only thing that has r eally helped her nausea. She also says that Compazine can help a bit. Phenergan did not seem to hakan e any improvement. On this hospitalization, she has had a workup that disclosed cholelithiasis, and a biliary HIDA scan that showed delayed uptake in the gallbladder, and so she had a cholecystectomy for this. It unfortu nately has not improved her symptoms. She is not able really to eat or drink much, mostly because of the nausea, and that when she eats, again she says she gets some mild epigastric discomfort and feel s full easily. I am asked to assist with further evaluation and management. PAST MEDICAL HISTORY: Significant for hypertension, bipolar disorder, and factor V Leiden mutation, heterozygous. She has also had what sounds like a perforated colon, but she does not recall why she has had a colostomy and resection of the colon back in 1989. I do not have more details of this. Emilee ortega also had a recent cholecystectomy for cholelithiasis. ALLERGIES: Bee sting. SOCIAL HISTORY: Tobacco abuse. Lives alone. No alcohol. No substance abuse. She is unemployed. FAMILY HISTORY: Negative for colitis, celiac disease, colon cancer, peptic ulcer disease, and chroni c heartburn. MEDICATIONS: Currently include the following: Tylenol, Norvasc, aspirin, Lipitor, Cogentin, Dulcola x, Tums, Tegretol, Coreg, vitamin D, Klonopin, Benadryl, Colace, hydralazine, lactulose, Zestril, Ami tiza b.i.d., Protonix, Zofran, Percocet, MiraLAX, Senokot, and trazodone. REVIEW OF SYSTEMS: GENERAL: She reports malaise. She does not have much appetite. She has lost we ight in the last month, maybe about 6-8 pounds. HEENT: Denies headache, visual disturbances, and di zziness. No mouth pain or difficulty swallowing. PULMONARY: No shortness of breath or cough. CARD IOVASCULAR: No chest pain or palpitations. No syncope. GI: Denies heartburn, dysphagia. No emesi s, but does have dry heaves with the nausea. Denies any diarrhea. She does not actually report cons tipation currently and she says that she has had a bowel movement. RHEUMATOLOGIC: No joint pain or swelling. DERMATOLOGIC: No hives, pruritus, or rash. Denies any jaundice. NEURO: Denies focal mo tor weakness and paresthesias. ENDOCRINE: Denies heat or cold intolerance. No excessive thirst. N o frequency of urination. HEMATOLOGIC: No bruising or epistaxis. PHYSICAL EXAMINATION: VITAL SIGNS: Blood pressure is 111/72, pulse is 82, respirations are 13, oxyg enation is 93% on room air, temperature is 36.7. GENERAL: No acute distress. HEENT: Sclerae anict kenna. No nystagmus. Oropharynx clear. Mucous membranes are somewhat dry. No oral thrush. NECK: Supple. No thyromegaly. PULMONARY: Clear to auscultation bilaterally. CARDIOVASCULAR: Regular ra te and rhythm. I do not appreciate any murmur, rub, or gallop. There is no chest wall tenderness. GI: The abdomen is soft and nondistended, but obese. Laparoscopic incisions are well healed. Ysabel l bowel sounds. No tenderness, rebound, or guarding. No palpable mass. No ascites. No bruit. RHE UMATOLOGIC: Negative for clubbing, cyanosis, palmar erythema, and joint deformity. DERMATOLOGIC: No hives, rash, or jaundice. NEUROLOGIC: Alert to person, place, and time. She is somewhat letharg ic but arousable, and is able to provide her own history. Her speech is fluent. Her facial features are symmetric. Motor is nonfocal, but she does seem diffusely weak. LABORATORY DATA: White count 6.9, hematocrit 43.1, platelets 195. Sodium 136, potassium 3.9, chlori de 100, bicarbonate 24, BUN 19, creatinine 0.6, calcium is 9.4. AST is mildly elevated at 55 with an ALT of 51, total bilirubin 0.9. Albumin is 4.0 with a total protein of 6.9. Lipase is 69. IMAGING DATA: Recently includes an abdominal x-ray from 09/07/2017, which I have reviewed and is rat her nonspecific. There is some stool within the colon. There is what is described as a "conspicuous loop of small bowel in the left upper quadrant, but this does not seen radiographically abnormal to me. A previous abdominal x-ray on 09/05/2017 is read as constipation but otherwise normal. IMPRESSION: 1. Nausea. 2. Epigastric pain. 3. Constipation. 4. Recent cholecystectomy for cholelithiasis and possibly chronic cholecystitis. RECOMMENDATIONS: 1. It is unclear why she is nauseated, but it seems very multifactorial to me. She is on a large gr oup of medications and it is possible that polypharmacy is at issue here. 2. Diagnostically, it is difficult to know what the right step is, but I think it would try a scopol amine patch to treat her symptomatically to see if we can get her up and about and eating better befo re doing anything else diagnostic. 3. For constipation, I would discontinue the Amitiza, which was started, as this can actually cause nausea as a predominant side effect of this drug. I would also discontinue lactulose and just favor using stool softener and MiraLAX for now, as these seem rather benign, and radiographic appearance of her constipation isn't too bad. 4. If she fails to improve in the next 2 days with the scopolamine patch, elimination of Amitiza, an d sort of conservative measures, then an upper endoscopy will be needed for further interrogation. 5. If she fails to improve with medicine, and an endoscopy is unremarkable, then I would recommend a CT scan of the abdomen and pelvis to look for other problems that could be causing her symptomatolog y; although, what this may disclose is unclear. Thank you very kindly for allowing me to be involved in the care of Ms Flower. Further recommendati ons to follow her progress. /[id number]/MODL
[2017-09-09] MEDS: DOCUSATE SODIUM 100 MG CAP PO SCH ×2 (15:55→22:21)
[2017-09-09] MEDS: ASPIRIN EC 81 MG TAB PO SCH (15:55)
[2017-09-09] MEDS: LEVOTHYROXINE 25 MCG TAB PO SCH (15:55)
[2017-09-09] MEDS: ATORVASTATIN CALCIUM 10 MG TAB PO SCH (15:55)
[2017-09-09] MEDS: CHOLECALCIFEROL VIT D3 2,000 UNITS TAB/CAP PO SCH (15:55)
[2017-09-09] MEDS: LEVOMILNACIPRAN HCL 20 MG PO SCH (16:27)
[2017-09-09] MEDS: LEVOMILNACIPRAN HCL 40 MG PO SCH (16:27)
[2017-09-09] MEDS: PANTOPRAZOLE SODIUM 40 MG TAB PO SCH (16:27)
[2017-09-09] MEDS: LISINOPRIL 5 MG TAB PO SCH (16:38)
[2017-09-09] MEDS: BENZTROPINE MESYLATE 1 MG TAB PO SCH (21:36)
[2017-09-09] MEDS: POLYETHYLENE GLYCOL 3350 17 GM PKT PO SCH (22:21)
[2017-09-10] MEDS: traZODone 100 MG TAB PO SCH ×2 (01:22→22:12)
[2017-09-10] MEDS: ZOLPIDEM TARTRATE 5 MG TAB PO PRN (01:22)
[2017-09-10] MEDS: CARIPRAZINE HCL 3 MG PO SCH ×2 (01:30→22:15)
[2017-09-10] MEDS: clonazePAM 1 MG TAB PO SCH ×2 (01:30→22:13)
[2017-09-10] MEDS: carBAMazepine 200 MG TAB PO SCH ×2 (01:31→22:15)
[2017-09-10] MEDS: LORazepam 2 MG/ML INJ IVP PRN ×5 (03:27→21:10)
[2017-09-10] MEDS: ONDANSETRON 4 MG/2 ML VIAL IVP PRN ×3 (03:48→22:21)
--- NOTE | 2017-09-10 07:34 | SOAPPROG ---
SOAP Progress Note Assessment/Plan: Assessment: 1. Nausea - etiology? - s/p lap randi w/o resolution - UA shows WBCs? - polypharmacy? - neuro-psych? - "non-negative" THC on admit? Cannabinoid syndrome or cannabinoid hyperemesis ? Although, Patient denies feeling better in the shower/bath. - doubt primary GI source - ongoing w/u - ongoing sx Plan: 1. CT today to r/o intraabdominal process (doubt) 2. check AM cortisol 3. if CT neg, will plan EGD tomorrow (npo p MN) 4. continue supportive care 5. Consider head CT to r/o neuro process? 6. Consider reduction in polypharmacy 7. Consider GES, although treatment options for this would be limited 8. Continue to consider non-GI sources of nausea 9. repeat UTI eval? will order repeat UA C&S. - will follow Subjective: CC: nausea S: ongoing nausea poor po intake no vomiting having BMs no fever no chills no SOB feeling fatigue as well finds Compazine useful, but concern about TD side effects Objective: Vital Signs Temp Pulse Resp BP Pulse Ox 36.5 C 105 H 16 145/116 H 95 09/10/17 04:00 09/10/17 04:00 09/10/17 04:00 09/10/17 04:00 09/10/17 04:00 Laboratory Results 09/08/17 09:52 09/08/17 09:52 09/09/17 09/10/17 09/11/17 05:59 05:59 05:59 Intake Total 350 1090 Output Total 220 Balance 130 1090 PT 14.2 SEC (12.0-15.0) 08/31/17 04:43 INR 1.08 (0.83-1.16) 08/31/17 04:43 Physical Exam - Physical Exam General Appearance: WD/WN, alert, no apparent distress EENT: PERRL/EOMI, normal ENT inspection Neck: full range of motion Respiratory: lungs clear Cardiac/Chest: normal peripheral pulses Abdomen: normal bowel sounds, non-tender, soft, No organomegaly Skin: normal color Extremities: normal range of motion Neuro/Psych: no motor/sensory deficits ICD10 Worksheet Patient Problems: Problems Problem Status Onset Dehydration Acute Elevated troponin Acute UTI (urinary tract infection) Acute
[2017-09-10] MEDS ORDERED: IOPAMIDOL (ISOVUE-300) 100 ML BTL ONE (07:58)
[2017-09-10] MEDS: CARVEDILOL 25 MG TAB PO SCH ×2 (14:02→20:59)
[2017-09-10] MEDS: PANTOPRAZOLE SODIUM 40 MG TAB PO SCH (14:02)
[2017-09-10] MEDS: LISINOPRIL 5 MG TAB PO SCH (14:02)
--- NOTE | 2017-09-10 14:03 | HOSPPROG ---
Hospitalist Progress Note Assessment/Plan: # ongoing N/V, constipation: s/p cholecystectomy - caution with anti-emetics given hx tardive dyskinesia - CT abd ok - EGD tomorrow; if neg consider gastric emptying study (check A1c) # chronic cholecystitis s/p cholecystectomy - f/u Dr Angel 2 weeks # chronic compensated sCHF, EF 23% - cont lisinopril/coreg # CAD s/p cath without intervention - asa/statin/SARABJIT/BB # htn - BB, sarabjit # bipolar d/o - Dr Finley as outpatient - [facility] on dc - benztropine for hx dyskinesia - tegretol, cariprazine, klonopin, levomilnacipran # hx Israel's esophagitis - she is unclear if this is a true diagnosis # hypothyroid - synthroid, TSH ok # dvt ppx - SCDs, ambulation Subjective: still nauseaus today Objective: Vital Signs Temp Pulse Resp BP Pulse Ox 36.4 C 104 H 14 141/96 H 95 09/10/17 12:00 09/10/17 12:00 09/10/17 12:00 09/10/17 12:00 09/10/17 12:00 Laboratory Results 09/08/17 09:52 09/08/17 09:52 09/09/17 09/10/17 09/11/17 05:59 05:59 05:59 Intake Total 350 1090 Output Total 220 Balance 130 1090 PT 14.2 SEC (12.0-15.0) 08/31/17 04:43 INR 1.08 (0.83-1.16) 08/31/17 04:43 CT reviewed tele personally reviewed - Physical Exam Constitutional: no apparent distress, appears nourished Cardiovascular: regular rate and rhythym, no murmur, rub, or gallop Respiratory: no respiratory distress, no rales or rhonchi, clear to auscultation Gastrointestinal: soft, non-tender abdomen, no palpable masses, No hepatosplenomegally, No guarding, No rebound ICD10 Worksheet Patient Problems: Problems Problem Status Onset UTI (urinary tract infection) Acute Dehydration Acute Elevated troponin Acute
[2017-09-10] MEDS: ASPIRIN EC 81 MG TAB PO SCH (14:05)
[2017-09-10] MEDS: ATORVASTATIN CALCIUM 10 MG TAB PO SCH (14:22)
[2017-09-10] MEDS: BENZTROPINE MESYLATE 1 MG TAB PO SCH ×2 (14:23→22:14)
[2017-09-10] MEDS: CHOLECALCIFEROL VIT D3 2,000 UNITS TAB/CAP PO SCH (14:23)
[2017-09-10] MEDS: DOCUSATE SODIUM 100 MG CAP PO SCH ×2 (14:23→22:13)
[2017-09-10] MEDS: POLYETHYLENE GLYCOL 3350 17 GM PKT PO SCH ×2 (14:24→21:00)
[2017-09-10] MEDS: LEVOTHYROXINE 25 MCG TAB PO SCH (14:24)
[2017-09-10] MEDS: LEVOMILNACIPRAN HCL 20 MG PO SCH (15:06)
[2017-09-10] MEDS: LEVOMILNACIPRAN HCL 40 MG PO SCH (15:06)
--- NOTE | 2017-09-10 15:44 | ASMTCMCOM ---
CM Note CM Note Notes: Reviewed chart, spoke with Dr. Hall regarding discharge plan of care, pt's progress. Pt scheduled to have an EGD Tuesday09/11/17. Per Dr. Hall, pt won't be ready for d/c prior to Tuesday09/12/17. Pt will discharge to [facility] when medically stable. CM to fax d/c orders to [phone]. CM will continue to follow. Current Discharge Plan: [facility] Date Signed: 09/10/2017 03:43 PM Electronically Signed By:Juliana Noel RN
[2017-09-11] MEDS: ZOLPIDEM TARTRATE 5 MG TAB PO PRN (00:57)
[2017-09-11] MEDS: LORazepam 2 MG/ML INJ IVP PRN ×3 (00:57→09:31)
[2017-09-11] MEDS: ONDANSETRON 4 MG/2 ML VIAL IVP PRN ×2 (03:50→23:53)
[2017-09-11] MEDS: CALCIUM CARBONATE 500 MG CHEWABLE TAB PO PRN ×2 (03:59→23:52)
[2017-09-11] MEDS: LEVOTHYROXINE 25 MCG TAB PO SCH (04:19)
[2017-09-11] MEDS ORDERED: PROPOFOL/EMULSION 500 MG/50 ML BOTTLE IV ONE (07:56)
[2017-09-11] MEDS ORDERED: LIDOCAINE 2% 100 MG/5 ML SYR ONE (07:56)
[2017-09-11] MEDS ORDERED: ONDANSETRON 4 MG/2 ML VIAL ONE (07:56)
[2017-09-11] MEDS ORDERED: fentaNYL 100 MCG/2 ML INJ ONE (07:56)
[2017-09-11] MEDS ORDERED: MIDAZOLAM 2 MG/2 ML VIAL ONE (07:56)
--- NOTE | 2017-09-11 08:04 | PDANEPAE ---
ANE Past Medical History - Cardiovascular History Hx Hypertension: Yes Hx Arrhythmias: No Hx Chest Pain: No Hx Coronary Artery / Peripheral Vascular Disease: Yes Hx CHF / Valvular Disease: Yes Hx Palpitations: No - Pulmonary History Hx COPD: No Hx Asthma/Reactive Airway Disease: No Hx Recent Upper Respiratory Infection: No Hx Oxygen in Use at Home: No Hx Sleep Apnea: Yes Sleep Apnea Screening Result - Last Documented: Positive - Endocrine History Hx Diabetes: Yes Hypothyroid: No Hyperthyroid: No - Renal History Hx Renal Disorders: Yes - Liver History Hx Hepatic Disorders: No - Neurological & Psychiatric Hx Hx Neurological and Psychiatric Disorders: No - Chronic Pain History Chronic Pain: No ANE Review of Systems Review of Systems: ANE Patient History - Allergies Allergies/Adverse Reactions: bee venom protein (honey bee) Allergy (Verified 08/27/17 14:21) - Home Medications Home Medications: Benztropine Mesylate [Cogentin (RX)] 1.5 mg PO BID 08/27/17 [Last Taken 08/26/17 ] Cariprazine HCl [Vraylar] 3 mg PO HS 08/27/17 [Last Taken 08/26/17] Docusate Sodium [Colace 100 MG (*)] 200 mg PO BID 08/27/17 [Last Taken 08/26/17] Levomilnacipran HCl [Fetzima] 20 mg PO DAILY 08/27/17 [Last Taken 08/27/17] Levomilnacipran HCl [Fetzima] 40 mg PO DAILY 08/27/17 [Last Taken 08/27/17] Levothyroxine [Synthroid 25 mcg (*)] 25 mcg PO DAILY06 08/27/17 [Last Taken ] Lisinopril [Zestril 20 mg (*)] 20 mg PO DAILY 08/27/17 [Last Taken 08/27/17] Metformin HCl [Metformin 1000 mg] 1,000 mg PO BIDMEAL 08/27/17 [Last Taken 08/13] Omeprazole 20 mg PO BID 08/27/17 [Last Taken 08/26/17] Promethazine HCl [Phenergan 12.5mg tab] 12.5 mg PO Q6 PRN 08/27/17 [Last Taken 08/27/17] carBAMazepine [Tegretol] 400 mg PO HS 08/27/17 [Last Taken 08/26/17] clonazePAM [Clonazepam] 1.5 mg PO HS 08/27/17 [Last Taken 08/26/17] traZODone [traZODONE 100MG (*)] 200 mg PO HS 08/27/17 [Last Taken 08/26/17] Cholecalciferol (Vitamin D3) [Vitamin D3] 4,000 unit PO DAILY 08/28/17 [Last Taken Unknown] LORazepam [Ativan (*)] 1 mg PO TID PRN 08/28/17 [Last Taken Unknown] Hewitt-3 Fatty Acids [Fish Oil 1000 mg (*)] 2,000 mg PO DAILY 08/28/17 [Last Taken Unknown] diphenhydrAMINE HCL [Diphenhydramine HCl] 50 mg PO QID PRN 08/28/17 [Last Taken Unknown] - NPO status NPO Since - Liquids (Date): 09/11/17 NPO Since - Liquids (Time): 23:55 NPO Since - Solids (Date): 09/11/17 NPO Since - Solids (Time): 23:55 - Smoking Hx Smoking Status: Current every day smoker - Alcohol Use Alcohol Use: None ANE Labs/Vital Signs - Labs Result Diagrams: 09/08/17 09:52 09/08/17 09:52 - Vital Signs Blood Pressure: 116/72 Heart Rate: 104 Respiratory Rate: 14 O2 Sat (%): 97 Height: 162.56 cm Weight: 91.7 kg ANE Physical Exam - Airway Neck exam: decreased ROM Mallampati Score: Class 3 Mouth exam: normal dental/mouth exam - Pulmonary Pulmonary: no respiratory distress - Cardiovascular Cardiovascular: regular rate and rhythym - ASA Status ASA Status: III ANE Anesthesia Plan Total IV Anesthesia: Yes
[2017-09-11] MEDS ORDERED: NALOXONE HCL 0.4 MG/ML INJ IVP PRN (08:25)
[2017-09-11] MEDS ORDERED: ONDANSETRON 4 MG/2 ML VIAL IVP PRN (08:25)
[2017-09-11] MEDS ORDERED: ALBUTEROL 3 ML DEYVIAL IH PRN (08:25)
--- NOTE | 2017-09-11 08:25 | GIREPORT ---
[facility] Surgical Services - Endoscopy Department Patient Name: Ching Sierra Procedure Date: 09/11/2017 7:45 AM Patient Type: Inpatient Attending MD/ ER Physician: Eugene Desouza MD Procedure: Upper GI endoscopy Indications: Epigastric abdominal pain, Functional Dyspepsia, Nausea Providers: Eugene Desouza MD Medicines: Sedation Administered by an Anesthesia Professional Complications: No immediate complications. Description of Procedure: After obtaining informed consent, the endoscope was passed under direct vision. Throughout the procedure, the patient's blood pressure, pulse, and oxygen saturations were monitored continuously. The Endoscope was intro duced through the mouth, and advanced to the third part of duodenum. The beth ent tolerated the procedure well. Findings: The Z-line was irregular and was found at the gastroesophageal junction . Biopsies were taken with a cold forceps for histology. Diffuse mild inflammation characterized by congestion (edema) and eryth smith was found in the entire examined stomach. Biopsies were taken with a co ld forceps for histology. The examined duodenum was normal. Biopsies for histology were taken wit h a cold forceps for evaluation of celiac disease. Estimated Blood Loss: Estimated blood loss: none. Post Op Diagnosis: - Z-line irregular, at the gastroesophageal junction. Biopsied. - Gastritis. Biopsied. - Normal examined duodenum. Biopsied. Recommendation: - Return patient to [facility] for ongoing care. - Clear liquid diet - advance as tolerated to resume regular diet. - Use a proton pump inhibitor PO BID. - Await pathology results. - Observe patient's clinical course. Attending Participation: I personally performed the entire procedure. Eugene Desouza MD Eugene Desouza MD 09/11/2017 8:25:01 AM This report has been signed electronicallyEugene Desouza MD Number of Addenda: 0 Note Initiated On: 09/11/2017 7:45 AM [email or web address]
--- NOTE | 2017-09-11 08:26 | POSTANESTH ---
Post Anesthetic Evaluation Cardiovascular Status: Similar to Pre-Op Cond Respiratory Status: Similar to Pre-op Cond. Level of Consciousness/Mental Status: Mildly Sleepy, Arousable Pain Control: Adequate, Prn Tx Ordered Nausea/Vomiting Control: Adequate, Prn Tx Ordered Complications Possibly Related to Anesthesia: None Noted
--- NOTE | 2017-09-11 11:02 | HOSPPROG ---
Hospitalist Progress Note Assessment/Plan: # ongoing N/V, constipation: s/p cholecystectomy - check CT head and attempt gastric emptying study for completeness; doubt GI source - will stop ativan today - start compazine (she tells me her tardive dyskinesia is very mild) - TLC eval placed (phone number currently not working, Ceci RN will call later today) - maybe d/t psych meds or psychogenic in natuere # chronic cholecystitis s/p cholecystectomy - f/u Dr Angel 2 weeks # chronic compensated sCHF, EF 23% - cont lisinopril/coreg # CAD s/p cath without intervention - asa/statin/SARABJIT/BB # htn - BB, sarabjit # bipolar d/o - Dr Finley as outpatient - [facility] on dc - benztropine for hx dyskinesia - tegretol, cariprazine, klonopin, levomilnacipran # hx Israel's esophagitis - irregular z-line noted today; she is unclear if this is a true diagnosis # hypothyroid - synthroid, TSH ok # dvt ppx - SCDs, ambulation Subjective: s/p EGD; ongoing nausea Objective: Vital Signs Temp Pulse Resp BP Pulse Ox 36.5 C 104 H 15 104/71 96 09/11/17 08:37 09/11/17 08:04 09/11/17 08:42 09/11/17 08:42 09/11/17 08:42 Laboratory Results 09/08/17 09:52 09/08/17 09:52 09/10/17 09/11/17 09/12/17 05:59 05:59 05:59 Intake Total 1090 800 Output Total 100 Balance 1090 700 PT 14.2 SEC (12.0-15.0) 08/31/17 04:43 INR 1.08 (0.83-1.16) 08/31/17 04:43 - Time Spent With Patient Time Spent with Patient: greater than 35 minutes Time Spent with Patient: Greater than 35 minutes spent on this patients care, greater than 50% of time spent counseling, educating, and coordinating care regarding the above mentioned plan. - Physical Exam Constitutional: uncomfortable, other (laying in bed) ICD10 Worksheet Patient Problems: Problems Problem Status Onset UTI (urinary tract infection) Acute Dehydration Acute Elevated troponin Acute
[2017-09-11] MEDS: PROCHLORPERAZINE MALEATE 10 MG TAB PO PRN ×3 (12:14→22:44)
[2017-09-11] MEDS: POLYETHYLENE GLYCOL 3350 17 GM PKT PO SCH ×2 (12:17→21:09)
[2017-09-11] MEDS: LEVOMILNACIPRAN HCL 20 MG PO SCH (12:18)
[2017-09-11] MEDS: DOCUSATE SODIUM 100 MG CAP PO SCH ×2 (12:18→21:09)
[2017-09-11] MEDS: LEVOMILNACIPRAN HCL 40 MG PO SCH (12:18)
[2017-09-11] MEDS: CHOLECALCIFEROL VIT D3 2,000 UNITS TAB/CAP PO SCH (12:18)
[2017-09-11] MEDS: CARVEDILOL 25 MG TAB PO SCH ×2 (13:40→21:08)
[2017-09-11] MEDS: ATORVASTATIN CALCIUM 10 MG TAB PO SCH (13:40)
[2017-09-11] MEDS: PANTOPRAZOLE SODIUM 40 MG TAB PO SCH ×3 (14:34→21:10)
[2017-09-11] MEDS: ASPIRIN EC 81 MG TAB PO SCH (14:34)
[2017-09-11] MEDS: LISINOPRIL 5 MG TAB PO SCH (16:38)
[2017-09-11] MEDS: BENZTROPINE MESYLATE 1 MG TAB PO SCH ×2 (16:39→21:09)
[2017-09-11] MEDS ORDERED: PANTOPRAZOLE SODIUM 40 MG TAB PO SCH (21:00)
[2017-09-11] MEDS: CARIPRAZINE HCL 3 MG PO SCH (21:10)
[2017-09-11] MEDS: carBAMazepine 200 MG TAB PO SCH (21:10)
[2017-09-11] MEDS: traZODone 100 MG TAB PO SCH (21:10)
[2017-09-11] MEDS: clonazePAM 1 MG TAB PO SCH (21:10)
[2017-09-12 04:30] LABS: PLATELET COUNT 146 10^3/uL (150-400)
--- NOTE | 2017-09-12 07:24 | SOAPPROG ---
SOAP Progress Note Assessment/Plan: Assessment: 1. Refractory Nausea - etiology? - multiple tests negative - while previously denies help with nausea from hot shower/bath, patient reports today that hot showers does help? maybe some component of cannabis hyperemesis syndrome? has been off cannabis for almost 1 month already, although response/improvement could take more time - suspect multifactorial etiology - for GES today - MRI brain, EGD, CT, AM cortisol negative - continue supportive care 09/12/17 07:21 Subjective: CC:nausea S: still with nausea 06/12, inability to toelrate po without worsened symptoms no fever no chills no vomiting no diarrhea/constipation Objective: Vital Signs Temp Pulse Resp BP Pulse Ox 36.8 C 83 18 106/78 93 09/12/17 07:19 09/12/17 07:19 09/12/17 07:19 09/12/17 07:19 09/12/17 07:19 Laboratory Results 09/12/17 03:50 09/12/17 03:50 09/11/17 09/12/17 09/13/17 05:59 05:59 05:59 Intake Total 800 1000 Output Total 100 Balance 700 1000 PT 14.2 SEC (12.0-15.0) 08/31/17 04:43 INR 1.08 (0.83-1.16) 08/31/17 04:43 Physical Exam - Physical Exam General Appearance: alert, mild distress EENT: PERRL/EOMI Respiratory: chest non-tender, lungs clear, normal breath sounds Cardiac/Chest: normal peripheral pulses, regular rate, rhythm, No edema, No gallop Abdomen: normal bowel sounds, non-tender, soft, No organomegaly Skin: warm/dry Neuro/Psych: no motor/sensory deficits ICD10 Worksheet Patient Problems: Problems Problem Status Onset Dehydration Acute Elevated troponin Acute UTI (urinary tract infection) Acute
[2017-09-12] MEDS: SCOPOLAMINE HYDROBROMIDE 1 MG/3 DAYS PATCH TD SCH (07:31)
[2017-09-12] MEDS: ONDANSETRON 4 MG/2 ML VIAL IVP PRN (07:41)
[2017-09-12] MEDS ORDERED: PATCH REMOVAL 1 EA PATCH TD SCH (11:34)
[2017-09-12] MEDS ORDERED: PROTOCOL POTASSIUM 1 DOSE MISC PRN (11:49)
[2017-09-12] MEDS: ASPIRIN EC 81 MG TAB PO SCH (12:22)
[2017-09-12] MEDS: CARVEDILOL 25 MG TAB PO SCH ×2 (12:22→17:57)
[2017-09-12] MEDS: ATORVASTATIN CALCIUM 10 MG TAB PO SCH (12:22)
[2017-09-12] MEDS: LEVOTHYROXINE 25 MCG TAB PO SCH (12:22)
[2017-09-12] MEDS: BENZTROPINE MESYLATE 1 MG TAB PO SCH ×2 (12:22→21:37)
[2017-09-12] MEDS: CHOLECALCIFEROL VIT D3 2,000 UNITS TAB/CAP PO SCH (12:23)
[2017-09-12] MEDS: DOCUSATE SODIUM 100 MG CAP PO SCH ×2 (12:23→21:38)
[2017-09-12] MEDS: LISINOPRIL 5 MG TAB PO SCH (12:23)
[2017-09-12] MEDS: POLYETHYLENE GLYCOL 3350 17 GM PKT PO SCH ×2 (12:24→21:36)
[2017-09-12] MEDS: POTASSIUM Cl (KCl) 100 ML IV SCH ×4 (12:43→22:47)
[2017-09-12] MEDS: PANTOPRAZOLE SODIUM 40 MG TAB PO SCH ×2 (13:20→21:38)
[2017-09-12] MEDS: LEVOMILNACIPRAN HCL 20 MG PO SCH (13:20)
[2017-09-12] MEDS: LEVOMILNACIPRAN HCL 40 MG PO SCH (13:20)
[2017-09-12] MEDS: PROCHLORPERAZINE MALEATE 25 MG SUPPR PR PRN ×2 (13:24→21:34)
--- NOTE | 2017-09-12 19:59 | HOSPPROG ---
Hospitalist Progress Note Assessment/Plan: # ongoing N/V, constipation: s/p cholecystectomy- with persist symptoms without postive studies - MRI brain (personally reviewed and interpreted) no acute findings or explanation for nausea - gastric emptying study ordered - cont dc ativan today - start compazine SD prn if cant tolerate PO - TLC eval placed - maybe d/t psych meds or psychogenic in nature # chronic cholecystitis s/p cholecystectomy - f/u Dr Angel 2 weeks # chronic compensated sCHF, EF 23%- oxygen saturations 93% on RA - cont lisinopril/coreg # CAD s/p cath without intervention - asa/statin/SARABJIT/BB # htn - BB, sarabjit # bipolar d/o - Dr Finley as outpatient - [facility] on dc - benztropine for hx dyskinesia - tegretol, cariprazine, klonopin, levomilnacipran # hx Israel's esophagitis - irregular z-line noted today; she is unclear if this is a true diagnosis # hypothyroid - synthroid, TSH ok # dvt ppx - SCDs, ambulation I have discussed the case with RN - will attempt to slowly advance diet as tolerated today Subjective: fearful to try food Objective: Vital Signs Temp Pulse Resp BP Pulse Ox 37.2 C 79 18 115/58 L 93 09/12/17 15:30 09/12/17 15:30 09/12/17 15:30 09/12/17 15:30 09/12/17 15:30 Laboratory Results 09/12/17 03:50 09/12/17 18:50 09/11/17 09/12/17 09/13/17 05:59 05:59 05:59 Intake Total 800 1000 450 Output Total 100 Balance 700 1000 450 PT 14.2 SEC (12.0-15.0) 08/31/17 04:43 INR 1.08 (0.83-1.16) 08/31/17 04:43 - Physical Exam Constitutional: chronically ill appearing Eyes: anicteric sclera Ears, Nose, Mouth, Throat: moist mucous membranes Cardiovascular: regular rate and rhythym Gastrointestinal: normoactive bowel sounds Genitourinary: no bladder fullness Skin: normal color Musculoskeletal: No asymmetric calves Neurologic: AAOx3 Psychiatric: poor insight, poor judgement Lymph, Heme, Immunologic: no cervical LAD ICD10 Worksheet Patient Problems: Problems Problem Status Onset Dehydration Acute Elevated troponin Acute UTI (urinary tract infection) Acute
[2017-09-12] MEDS: ZOLPIDEM TARTRATE 5 MG TAB PO PRN (22:46)
[2017-09-12] MEDS: carBAMazepine 200 MG TAB PO SCH (22:46)
[2017-09-13] MEDS: ONDANSETRON 4 MG/2 ML VIAL IVP PRN ×2 (02:07→06:04)
[2017-09-13] MEDS: traZODone 100 MG TAB PO SCH ×2 (03:27→21:58)
[2017-09-13] MEDS: CARIPRAZINE HCL 3 MG PO SCH ×2 (03:28→22:07)
[2017-09-13] MEDS: clonazePAM 1 MG TAB PO SCH ×2 (03:28→21:56)
[2017-09-13] MEDS: LEVOTHYROXINE 25 MCG TAB PO SCH (06:04)
[2017-09-13] MEDS ORDERED: POTASSIUM CL 10 MEQ TAB PO ONE ×2 (07:06→16:00)
[2017-09-13] MEDS: POTASSIUM Cl (KCl) 100 ML IV SCH ×3 (08:38→16:18)
[2017-09-13] MEDS: PROCHLORPERAZINE MALEATE 25 MG SUPPR PR PRN (10:26)
[2017-09-13] MEDS: LEVOMILNACIPRAN HCL 40 MG PO SCH (12:46)
[2017-09-13] MEDS: POLYETHYLENE GLYCOL 3350 17 GM PKT PO SCH ×2 (12:47→22:06)
[2017-09-13] MEDS: DOCUSATE SODIUM 100 MG CAP PO SCH ×2 (12:47→22:06)
[2017-09-13] MEDS: LEVOMILNACIPRAN HCL 20 MG PO SCH (12:47)
[2017-09-13] MEDS: BENZTROPINE MESYLATE 1 MG TAB PO SCH ×2 (12:49→21:56)
[2017-09-13] MEDS: ATORVASTATIN CALCIUM 10 MG TAB PO SCH (12:50)
[2017-09-13] MEDS: PANTOPRAZOLE SODIUM 40 MG TAB PO SCH ×2 (12:50→21:59)
[2017-09-13] MEDS: ASPIRIN EC 81 MG TAB PO SCH (12:51)
[2017-09-13] MEDS: CHOLECALCIFEROL VIT D3 2,000 UNITS TAB/CAP PO SCH (12:51)
[2017-09-13] MEDS: CARVEDILOL 25 MG TAB PO SCH ×2 (12:51→17:43)
[2017-09-13] MEDS: LISINOPRIL 5 MG TAB PO SCH (12:51)
--- NOTE | 2017-09-13 15:37 | SOAPPROG ---
SOAP Progress Note Assessment/Plan: Assessment: 1. Refractory Nausea - etiology? - multiple tests negative - feeling somewhat better today - tolerated some feeding and wants to go home 09/13/17 15:35 Subjective: CC: nausea S: feeling better less nausea, but still present ate some eggs and applesauce she thinks the compazine has been very helpful no fever no diarrhea having BMs Objective: Vital Signs Temp Pulse Resp BP Pulse Ox 36.8 C 90 18 127/89 H 95 09/13/17 08:00 09/13/17 08:00 09/13/17 08:00 09/13/17 08:00 09/13/17 08:00 Laboratory Results 09/12/17 03:50 09/13/17 03:36 09/12/17 09/13/17 09/14/17 05:59 05:59 05:59 Intake Total 1000 1350 Balance 1000 1350 PT 14.2 SEC (12.0-15.0) 08/31/17 04:43 INR 1.08 (0.83-1.16) 08/31/17 04:43 Physical Exam - Physical Exam EENT: PERRL/EOMI Neck: non-tender Respiratory: lungs clear, normal breath sounds Cardiac/Chest: normal peripheral pulses, regular rate, rhythm, No edema Abdomen: normal bowel sounds, non-tender, soft Skin: normal color Extremities: normal range of motion Neuro/Psych: no motor/sensory deficits ICD10 Worksheet Patient Problems: Problems Problem Status Onset Dehydration Acute Elevated troponin Acute UTI (urinary tract infection) Acute
--- NOTE | 2017-09-13 16:06 | ASMTCMCOM ---
CM Note CM Note Notes: 09/13/2017 Case Management Note Met w/pt after rounds today to discuss d/c plan. Valerio, social welfare administrator from [facility], also present. Pt expressing desire to d/c today to return to [facility]. Per Valerio pt has stated that she started using marijuana approximately a month ago to assist with sleep. Left voicemail for Blaire Vega and Angeles Daigle RNs at [facility] for updates. Discussed case with Dr. Peterson. Please see her consult note. Case Management d/c poc: return to [facility] Case Management to follow. Date Signed: 09/13/2017 04:05 PM Electronically Signed By:Felicia Corley RN
--- NOTE | 2017-09-13 16:26 | ASMTCMCOM ---
CM Note CM Note Notes: 09/13/2017 Case Management Note Phone Call from Christal Jameson stating that Ching will attend an 11 am group tomorrow after d/c. Christal Jameson staff to transport from [facility]. Notified RN and MD of need for manual tester d/c. Case Management d/c poc: Christal Jameson [place] Date Signed: 09/13/2017 04:26 PM Electronically Signed By:Felicia Corley RN
--- NOTE | 2017-09-13 18:35 | HOSPPROG ---
Hospitalist Progress Note Assessment/Plan: # ongoing N/V, constipation: s/p cholecystectomy- with persist symptoms without postive studies - MRI brain (personally reviewed and interpreted) no acute findings or explanation for nausea - gastric emptying study not completed 2/2 patient fear of taking food with tracer - cont dc ativan today - cont compazine NE prn i - case discussed with outpt psychiatric proveder - pt to continue advancing diet at [facility] # chronic cholecystitis s/p cholecystectomy - f/u Dr Angel 2 weeks # chronic compensated sCHF, EF 23%- oxygen saturations 93% on RA - cont lisinopril/coreg - appears euvolemic on exam # CAD s/p cath without intervention - asa/statin/SARABJIT/BB - sorting out cardiac rehab consultation # htn - BB, sarabjit # bipolar d/o - Dr Finley as outpatient - [facility] on dc - benztropine for hx dyskinesia - tegretol, cariprazine, klonopin, levomilnacipran # hx Israel's esophagitis - irregular z-line noted today; she is unclear if this is a true diagnosis # hypothyroid - synthroid, TSH ok # dvt ppx - SCDs, ambulation I have discussed the case with Dr. Siegel - they will fill new cardiac meds and follow outpatient Subjective: tolerated some solids this am Objective: Vital Signs Temp Pulse Resp BP Pulse Ox 36.8 C 79 16 113/75 95 09/13/17 16:00 09/13/17 16:00 09/13/17 16:00 09/13/17 16:00 09/13/17 16:00 Laboratory Results 09/12/17 03:50 09/13/17 17:30 09/12/17 09/13/17 09/14/17 05:59 05:59 05:59 Intake Total 1000 1350 Balance 1000 1350 PT 14.2 SEC (12.0-15.0) 08/31/17 04:43 INR 1.08 (0.83-1.16) 08/31/17 04:43 - Physical Exam Constitutional: appears nourished Eyes: anicteric sclera Ears, Nose, Mouth, Throat: moist mucous membranes Cardiovascular: regular rate and rhythym Respiratory: no respiratory distress Gastrointestinal: normoactive bowel sounds Genitourinary: no bladder fullness Skin: warm Musculoskeletal: No asymmetric calves Neurologic: AAOx3 Psychiatric: poor insight, poor judgement Lymph, Heme, Immunologic: no cervical LAD ICD10 Worksheet Patient Problems: Problems Problem Status Onset Dehydration Acute Elevated troponin Acute UTI (urinary tract infection) Acute
[2017-09-13] MEDS: carBAMazepine 200 MG TAB PO SCH (21:58)
[2017-09-13] MEDS: ZOLPIDEM TARTRATE 5 MG TAB PO PRN (22:04)
[2017-09-13] MEDS: PROCHLORPERAZINE MALEATE 10 MG TAB PO PRN (22:10)
[2017-09-14] MEDS: LEVOTHYROXINE 25 MCG TAB PO SCH (06:26)
[2017-09-14] MEDS: DOCUSATE SODIUM 100 MG CAP PO SCH (07:08)
[2017-09-14] MEDS: POLYETHYLENE GLYCOL 3350 17 GM PKT PO SCH (07:10)
[2017-09-14 07:40] VITALS: BP 90/56
--- NOTE | 2017-09-14 08:40 | PDIAF ---
- Diagnosis Diagnosis: CAD s/p cholecystectomy Code Status: Full Code - Medication Management Discharge Medications: Medications to Continue on Transfer Benztropine Mesylate [Cogentin] 1.5 mg PO BID 08/27/17 [Last Taken 08/26/17] Cariprazine HCl [Vraylar] 3 mg PO HS 08/27/17 [Last Taken 08/26/17] Docusate Sodium [Colace 100 MG (*)] 200 mg PO BID 08/27/17 [Last Taken 08/26/17] Levomilnacipran HCl [Fetzima] 20 mg PO DAILY 08/27/17 [Last Taken 08/27/17] Levomilnacipran HCl [Fetzima] 40 mg PO DAILY 08/27/17 [Last Taken 08/27/17] Metformin HCl [Metformin 1000 mg] 1,000 mg PO BIDMEAL 08/27/17 [Last Taken 08/13] carBAMazepine [Tegretol] 400 mg PO HS 08/27/17 [Last Taken 08/26/17] clonazePAM [Clonazepam] 1.5 mg PO HS 08/27/17 [Last Taken 08/26/17] Cholecalciferol (Vitamin D3) [Vitamin D3] 4,000 unit PO DAILY 08/28/17 [Last Taken Unknown] Lyon-3 Fatty Acids [Fish Oil 1000 mg (*)] 2,000 mg PO DAILY 08/28/17 [Last Taken Unknown] Acetaminophen [Tylenol 325mg (*)] 650 mg PO Q4HRS PRN tab 09/14/17 [Last Taken Unknown] Aspirin EC [Aspirin EC 81 mg (*)] 81 mg PO DAILY #30 tab 09/14/17 [Last Taken Unknown] Atorvastatin Calcium [Lipitor 10 mg (*)] 20 mg PO DAILY #30 tab 09/14/17 [Last Taken Unknown] Calcium Carbonate [Tums 500MG (*)] 500 mg PO TID PRN #90 tab.chew 09/14/17 [ Last Taken Unknown] Carvedilol [Coreg (*)] 25 mg PO BIDMEAL #60 tab 09/14/17 [Last Taken Unknown] Levothyroxine [Synthroid 25 mcg (*)] 25 mcg PO DAILY06 #30 tab 09/14/17 [Last Taken Unknown] Lisinopril [Zestril 5 mg (*)] 5 mg PO DAILY #30 tab 09/14/17 [Last Taken Unknown ] Nitroglycerin [Nitrostat 0.4 mg (*)] 0.4 mg SL PRN PRN #1 btl 09/14/17 [Last Taken Unknown] Omeprazole 20 mg PO BID #60 capsule. 09/14/17 [Last Taken Unknown] Polyethylene Glycol 3350 [Miralax 17 gm (*)] 17 gm PO BID PRN #30 pkt 09/14/17 [ Last Taken Unknown] Prochlorperazine Maleate [Compazine 10mg (*)] 10 mg PO TID PRN #30 tab 09/14/17 [Last Taken Unknown] Prochlorperazine Maleate [Compazine 25mg supp (*)] 25 mg ME BID PRN #14 suppr [Last Taken Unknown] Promethazine HCl [Phenergan 12.5mg tab] 12.5 mg PO Q6 PRN #30 tablet 09/14/17 [ Last Taken Unknown] amLODIPine BESYLATE [Norvasc 10 mg (*)] 10 mg PO DAILY #30 tab 09/14/17 [Last Taken Unknown] traZODone [traZODONE 100MG (*)] 200 mg PO HS #30 tab 09/14/17 [Last Taken Unknown] Discharge Medications: Refer to the Discharge Home Medication list for PRN reason. - Orders Services needed: Registered Nurse, Master Shell Grader Isolation Type: None Diet Recommendation: no restrictions on diet Diet Texture: Regular Texture Diet Additional Instructions: No lifting greater than 25 lb for 1 week after surgery. May shower. Call for concerns regarding hospitalization or surgery. Surgical concerns include temperature greater than 101.5, inability eat, redness of incision or drainage. If you have pain not controlled by medication you should also call the surgeon's office. Please follow at [facility] in 3-4 weeks for first post discharge follow up - Follow Up Care Current Providers and Referrals: Kirill Angel MD [Medical Doctor] - follow up in 2 weeks (Please call to schedule.) Patient,NotPresent [Unknown] - As per Instructions James García MD [Medical Doctor] -
[2017-09-14] MEDS: BENZTROPINE MESYLATE 1 MG TAB PO SCH (08:43)
[2017-09-14] MEDS: PROCHLORPERAZINE MALEATE 10 MG TAB PO PRN (08:44)
[2017-09-14] MEDS: LISINOPRIL 5 MG TAB PO SCH (08:44)
[2017-09-14] MEDS: PANTOPRAZOLE SODIUM 40 MG TAB PO SCH (08:44)
[2017-09-14] MEDS: ASPIRIN EC 81 MG TAB PO SCH (08:44)
[2017-09-14] MEDS: ATORVASTATIN CALCIUM 10 MG TAB PO SCH (08:44)
[2017-09-14] MEDS: CARVEDILOL 25 MG TAB PO SCH (08:44)
[2017-09-14] MEDS: CHOLECALCIFEROL VIT D3 2,000 UNITS TAB/CAP PO SCH (08:44)
[2017-09-14] MEDS: LEVOMILNACIPRAN HCL 20 MG PO SCH (08:45)
[2017-09-14] MEDS: LEVOMILNACIPRAN HCL 40 MG PO SCH (08:45)
--- NOTE | 2017-09-14 11:52 | ASDISCHSUM ---
Discharge Information Plan Status:[facility] Medically Cleared to Leave:09/14/2017 Discharge Date:09/14/2017 10:20 AM CM D/C Disposition:Home, Routine, Self-Care ADT D/C Disposition:Other Psych, Not Faith Projected Discharge Date:09/14/2017 10:20 AM Transportation at D/C: Discharge Delay Reason: Follow-Up Date:09/14/2017 10:20 AM Discharge Slot: Final Diagnosis:UTI, dehydration, abnormal troponin, nausea, vomiting, epigastric pain, HTN, bipolar disorder Placement Information Patient Contact Information Contact Name:PRUDENCE Relationship:Sister Address: Work Phone: City: [facility] Phone: State/[employer] Code: Email: Financial Information Financial Class:HMO and PPO Plans Primary Plan Desc: OUT OF STATE PPO Primary Plan Number:[id number] Secondary Plan Desc: Secondary Plan Number: Assessment Information LACE LACE Length of stay for Answers: 14 days or more current admission Acuity / Level of Answers: Yes Care: Did the patient have an inpatient admission? Comorbidities - select Answers: Other Notes: HTN all that apply # of Emergency department Answers: 3-4 visits in the last 6 months Social determinants Answers: Mental health diagnosis (anxiety, depression, pers onality disorders, etc.) Score: 17 Date Signed: 09/14/2017 11:51 AM Electronically Signed By:Felicia Corley RN [facility] CM Progress Note CM Note CM Note Notes: Pt presented to the Emergency Department with nausea, vomiting,epigastric pain and HTN today. Per MD notes, pt was admitted for further eval and treatment of a UTI, dehydration and an abnormal troponin. Pt was recently seen on 08/17 and 08/18 in the ED for similar complaints. Pt was transferred to [facility] by EMS from the [facility]. The [facility] is a residential care center for people with mental illness. Discharge needs remain unclear at this time. CM will continue to follow. Current Discharge Plan: To be determined Date Signed: 08/27/2017 05:50 PM Electronically Signed By:Juliana Noel RN [facility] CM Progress Note CM Note CM Note Notes: 08/29/2016 Case Management Note Discussed pt during multidisciplinary rounds this morning. Met w/pt this afternoon and her sister Tamera Riojas [phone]. Pt sister Tamera and her 2 sisters in [place] are supportive and involved in cares. Pt resides at [address] [place] [address] in [place]. Pt has participated in the CO recovery program at the [facility] previously for help with her bipolar diagnosis. Pt moved to [place] recently after a brief return to [place] upon completion of the CO recovery program. Pt is now seen on an outpatient basis by providers at the [facility]. Pt was living independently prior to this weekend, when she returned to the [facility] under their medical respite program. Per pt, [facility] encouraged pt to come to [facility] for evaluation for physical symptoms. Pt plans to return to the [facility] respite program for 2 - 3 days after d/c. [facility] will provide private room, meals, RN supervision as well as counseling support. Case Management d/c poc: to [facility] Case Management to follow. Date Signed: 08/29/2017 02:43 PM Electronically Signed By:Felicia Corley RN [facility] CM Progress Note CM Note CM Note Notes: 08/31/2017 Case Management Note Reviewed case during multidisciplinary rounds. Pt was at nuc stress test which showed an anterior infarction and lateral wall ischemia. She is preop for gallbladder surgery. Case Management d/c poc: to be determined. Anticipating return to [facility] for counseling support. Per pt [facility] has an RN on staff for post op cares. Case Management to follow. Date Signed: 08/31/2017 04:58 PM Electronically Signed By:Felicia Corley RN [facility] Progress Note CM Note CM Note Notes: Pts case discussed in morning rounds. CM spoke w/ pts therapist at [facility] and obtained updates. [facility] will need our RN to give report at time of d/c (P#: [phone] F#: [phone]). Dr. Nair will speak to the MD at [facility] today. Pt will most likely stay w/ her sister for a few days then return back to [facility]. Pt does not think HC while she stays at her sister's house will be helpful. CM to follow. Plan: Independent; RN to give report to [facility] and CM to send d/c paperwork/orders Date Signed: 09/02/2017 12:31 PM Electronically Signed By:GRACIE Ceballos [facility] Progress Note CM Note CM Note Notes: Chart reviewed. Plan in place for discharge to [facility]. Unclear as to whether or not she will spend time with her sister. CM to follow. Plan: dc to home with likely stay at [facility]. Pts case discussed in morning rounds. CM spoke w/ pts therapist at [facility] and obtained updates. [facility] will need our RN to give report at time of d/c (P#: [phone] F#: [phone]). Dr. Nair will speak to the MD at [facility] today. Pt will most likely stay w/ her sister for a few days then return back to [facility]. Pt does not think HC while she stays at her sister's house will be helpful. CM to follow. Date Signed: 09/03/2017 11:45 AM Electronically Signed By:Celsa Ramirez RN [facility] Progress Note CM Note CM Note Notes: Met with patient to review dc plan of care. She tells me this afternoon she is feeling better. She is to go to [facility] upon discharge. She states they can get her or she can get an uber. Cm available should other needs arise Will need to send dc paperwork to [facility]. Plan: dc to [facility] Date Signed: 09/04/2017 04:07 PM Electronically Signed By:Celsa Ramirez RN [facility] CM Progress Note CM Note CM Note Notes: 09/05/2017 Case Management Note Met w/ RNs from [facility]. Pt has food critic through [facility]. Case Management to fax d/c paperwork to the [facility] [phone]. Case Management to follow. Date Signed: 09/05/2017 12:25 PM Electronically Signed By:Felicia Corley RN [facility] CM Progress Note CM Note CM Note Notes: 09/07/2017 Case Management Note Discussed pt during rounds this morning. Pt continues to experience nausea and constipation. Case Management d/c poc: to [facility] Case Management to fax d/c orders to [phone]. Case Management to follow. Date Signed: 09/07/2017 04:18 PM Electronically Signed By:Felicia Corley RN [facility] Progress Note CM Note CM Note Notes: Pts case discussed in morning rounds. Pt will have a GI consult today. Pts continues to feel nauseous. CM called bed board and had them add pts PCP in her chart in [facility]. Pt will d/c to [facility] when medically stable. CM to fax d/c orders to [phone]. CM to follow. Plan: [facility] Date Signed: 09/09/2017 12:45 PM Electronically Signed By:GRACIE Ceballos [facility] Progress Note CM Note CM Note Notes: Reviewed chart, spoke with Dr. Hall regarding discharge plan of care, pt's progress. Pt scheduled to have an EGD Tuesday09/11/17. Per Dr. Hall, pt won't be ready for d/c prior to Tuesday09/12/17. Pt will discharge to [facility] when medically stable. CM to fax d/c orders to [phone]. CM will continue to follow. Current Discharge Plan: [facility] Date Signed: 09/10/2017 03:43 PM Electronically Signed By:Juliana Noel RN [facility] CM Progress Note CM Note CM Note Notes: 09/13/2017 Case Management Note Met w/pt after rounds today to discuss d/c plan. Valerio, social media manager from [facility], also present. Pt expressing desire to d/c today to return to [facility]. Per Valerio pt has stated that she started using marijuana approximately a month ago to assist with sleep. Left voicemail for Blaire Vega and Angeles Daigle RNs at [facility] for updates. Discussed case with Dr. Peterson. Please see her consult note. Case Management d/c poc: return to [facility] Case Management to follow. Date Signed: 09/13/2017 04:05 PM Electronically Signed By:Felicia Corley RN [facility] CM Progress Note CM Note CM Note Notes: 09/13/2017 Case Management Note Phone Call from [facility] stating that Ching will attend an 11 am group tomorrow after d/c. [facility] staff to transport from [facility]. Notified RN and MD of need for clinical field specialist d/c. Case Management d/c poc: [facility] Date Signed: 09/13/2017 04:26 PM Electronically Signed By:Felicia Corley RN Case Management Discharge Plan Note Case Management Discharge Discharge Order Complete? Answers: Yes Patient to Obtain Answers: Other Notes: [facility] Medications Transportation Arranged Answers: Other Notes: Staff from [facility] [place] Discharge Comments Notes: 09/14/2017 Case Management Note Pt d/c directly to [facility] [place] escorted by [facility] staff. Faxed d/c orders to [facility]. Date Signed: 09/14/2017 11:50 AM Electronically Signed By:Felicia Corley RN Intervention Information
--- NOTE | 2017-09-14 16:13 | GDS ---
[f rep st] DISCHARGE SUMMARY DISCHARGE DIAGNOSES: Include: 1. Nausea and vomiting, persistent; etiology unclear. 2. Status post cholecystectomy. 3. Coronary artery disease. 4. Ischemic cardiomyopathy. 5. Hypertension. 6. Severe bipolar disorder. 7. History of Israel esophagitis. 8. Hypothyroidism. HISTORY OF PRESENT ILLNESS: This is a 52-year-old female with significant psychiatric illness, who p resents on 08/27/2017, with complaints of nausea and abdominal discomfort. For details of the jamie reed's initial presentation, please see the history and physical dated 08/27/2017. CONSULTATIVE SERVICES: Include : 1. General surgery. 2. Cardiology. 3. Gastroenterology. PROCEDURES: 1. On 09/01/2017, patient underwent a laparoscopic cholecystectomy. 2. On 08/30/2017, patient underwent myocardial perfusion scanning which showed evidence of previous infarcts as well as an ejection fraction estimated at 26%. HOSPITAL COURSE: By issue: 1. Acute abdominal pain and nausea: Patient was found to have acalculous cholecystitis, was evaluat ed by surgery, and underwent laparoscopic cholecystectomy. The patient recovered well from this. Wi ll follow in the outpatient setting with Dr. Angel. 2. Persistent nausea and vomiting: This was a consistent complaint for this patient throughout her hospital stay. She had a very thorough workup, including gastroenterology consultation, EGD, and abd omen CT, none of which showed obvious causes for her symptoms. The patient was continued on twice a day PPI for gastritis, multi-drug regimen for nausea, and has been encouraged to up-titrate her oral intake. She is being discharged to [facility] where she can have ongoing support and assistance w ith her nutritional intake. Patient refused gastric emptying study during this hospital stay. This would be a recommended examination if the patient is willing for outpatient workup. 3. Coronary artery disease: This was a new diagnosis for this patient made by nuclear stress imagin g with clear evidence for old infarction. Patient was initiated on a cardiac regimen including aspir in, statin, carvedilol, and lisinopril. The patient will follow in the outpatient setting with [facility] for long-term management of her coronary disease. 4. Ischemic cardiomyopathy: In addition to identifying coronary disease, additionally identified a cardiomyopathy attributed to it. Ejection fraction estimated at 24%. Patient is clinically compensa nikky during her hospital stay, and again, was discharged on the above medications and outpatient cardi ac monitoring as well as cardiac rehab. 5. Bipolar disorder: Patient requires intensive cardiac pharmacologic therapy for this diagnosis. No changes were made to her outpatient regimen. She is being discharged back to [facility] for [facility] psychiatric support and monitoring. MEDICATIONS AT DISPOSITION: Please reference med rec printed on 09/14/2017. FOLLOWUP APPOINTMENTS: Include: 1. With Dr. Angel in 2 weeks' time for post surgical followup. 2. With [facility] for post disposition followup of a new diagnosis of coronary disease with isch emic cardiomyopathy. 3. With her primary care provider for long-term management of her hypertension and medical comorbidi ties. I spent greater than 30 minutes in the planning and coordination of this discharge. /[id number]/MODL
--- NOTE | 2017-09-19 16:11 | PQFORM ---
PHYSICIAN QUERY FORM Needs Your Response This query form is being sent to you to assure this patient record is coded properly. Please respond to the question below: HAND BANDER QUESTION: Dear Dr. Jaimes, In reviewing this patients medical record it was noted the patient had the diagnosis of 'Systolic CHF.' Noted in the Hospitalist progress notes dated 09/01 -09/13 patient was diagnosed with Chronic systolic CHF w/ the EF of 20-25%. After study, should the diagnosis of "Chronic systolic CHF" be included in the discharge summary? ___x_ Yes ____ No ____ Unable to determine Other more appropriate diagnosis Thank you NISHANT Orozco HIM/Coding Dept. [phone] INSTRUCTIONS FOR RESPONSE: Answer question by clicking on the "Edit Document" button. Move cursor to area below the stars. When complete, hit "Save." Click on the "Sign" button, then click "Sign" again. Type in your PIN and hit "Enter." MTDD
== END 2017-09-14 10:20 | DRG 418 ==
LOC: EDUNIT# → OBSVTOIN 16:34 → INTOOBSV 16:34 → F2W 17:10
PROVIDERS: ADMIT Internal Medicine; ATTEND Internal Medicine
DX: K80.13 Calculus of gallbladder with acute and chronic cholecystitis with obstruction (principal); I50.22 Chronic systolic (congestive) heart failure; I48.91 Unspecified atrial fibrillation; I25.5 Ischemic cardiomyopathy; K29.50 Unspecified chronic gastritis without bleeding; I10 Essential (primary) hypertension; K59.00 Constipation, unspecified; F31.9 Bipolar disorder, unspecified; E78.5 Hyperlipidemia, unspecified; E66.9 Obesity, unspecified; E03.9 Hypothyroidism, unspecified; E87.6 Hypokalemia; G47.30 Sleep apnea, unspecified; Z72.0 Tobacco use; Z23 Encounter for immunization
CPT/HCPCS: 80305; 96365; A9500; A9537; C1760; G0009; G0378; G0480; J0696; J1100; J1200; J1650; J2001; J2060; J2250; J2270; J2405; J2550; J2704; J2765; J2785; J3010; J3480; Q9957; Q9967

== ENCOUNTER 2017-09-25 11:14 | Emergency (ER) | payer BC ==
--- NOTE | 2017-09-25 11:21 | EDPHY ---
H & P Time Seen by Provider: 09/25/17 11:19 HPI/ROS: CHIEF COMPLAINT: nausea and vomiting HISTORY OF PRESENT ILLNESS: Patient says she has had symptoms since August 15, with recurrent nausea and vomiting. Patient had recent hospitalization including cholecystectomy, presents today with recurrent nausea and vomiting. Symptoms are moderate but persistent for the last 6 weeks. Not associated with abdominal pain or diarrhea, hematemesis or coffee-ground emesis, or melena. The patient's is not better worse with oral intake. REVIEW OF SYSTEMS: Eye: no change in vision ENT: no sore throat Cardiac: no chest pain or syncope Pulmonary: no cough or SOB Abdomen: HPI Musculoskeletal: no back pain Skin: no rash Neuro: no headache Constitutional: no fever : no urinary symptoms, no dysuria or hematuria. A comprehensive 10 point review of systems is otherwise negative aside from elements mentioned in the history of present illness. PAST MEDICAL HISTORY: Discharge summary dated 09/14/2017 personally reviewed includes cholecystectomy on 09/01/2017, coronary artery disease, ischemic cardiomyopathy with ejection fraction 26% on 08/30/2017, hypertension, bipolar disorder, hypothyroid. Social history: lives at [facility], denies alcohol General Appearance: Alert and conversant, cooperative. Eyes: No scleral icterus. ENT, Mouth: Normal mucous membranes. Respiratory: Normal respiratory effort, breath sounds equal, lungs are clear to auscultation. Cardiovascular: Regular rate and rhythm. Gastrointestinal: Abdomen is soft and non tender. Neurological: Alert, face symmetric, normal motor and sensory in extremities. Skin: Warm and dry, no rashes. Musculoskeletal: No peripheral edema. Psychiatric: Not agitated. Flat affect. Emergency Department course/MDM: 1212: Andrew discussed. Normal saline IV hydration 2 L, labs reviewed, CT scanning to evaluate for postoperative gallbladder surgery complication discussed and consented. 1315: Negative abdominal pelvis CT per Dr. Pimentel. Re-evaluated, oral Bentyl, IV Benadryl, IV fluids, discharge back to home. 1407: Will try prescription with oral Bentyl. No further vomiting in ED. Smoking Status: Current every day smoker Constitutional: Initial Vital Signs Temperature (C) 36.7 C 09/25/17 11:16 Heart Rate 110 H 09/25/17 11:16 Respiratory Rate 18 09/25/17 11:16 Blood Pressure 123/92 H 09/25/17 11:16 O2 Sat (%) 93 09/25/17 11:16 O2 Delivery Mode Room Air Allergies/Adverse Reactions: bee venom protein (honey bee) Allergy (Verified 09/25/17 11:16) Home Medications: Medication Instructions Recorded Benztropine Mesylate [Cogentin] 1.5 mg PO BID 08/27/17 Cariprazine HCl [Vraylar] 3 mg PO HS 08/27/17 Docusate Sodium [Colace 100 MG (*)] 200 mg PO BID 08/27/17 Levomilnacipran HCl [Fetzima] 20 mg PO DAILY 08/27/17 Levomilnacipran HCl [Fetzima] 40 mg PO DAILY 08/27/17 Metformin HCl [Metformin 1000 mg] 1,000 mg PO BIDMEAL 08/27/17 carBAMazepine [Tegretol] 400 mg PO HS 08/27/17 clonazePAM [Clonazepam] 1.5 mg PO HS 08/27/17 Cholecalciferol (Vitamin D3) 4,000 unit PO DAILY 08/28/17 [Vitamin D3] [place]-3 Fatty Acids [Fish Oil 1000 2,000 mg PO DAILY 08/28/17 mg (*)] Acetaminophen [Tylenol 325mg (*)] 650 mg PO Q4HRS PRN tab 09/14/17 Aspirin EC [Aspirin EC 81 mg (*)] 81 mg PO DAILY #30 tab 09/14/17 Atorvastatin Calcium [Lipitor 10 20 mg PO DAILY #30 tab 09/14/17 mg (*)] Calcium Carbonate [Tums 500MG (*)] 500 mg PO TID PRN #90 tab.chew 09/14/17 Carvedilol [Coreg (*)] 25 mg PO BIDMEAL #60 tab 09/14/17 Levothyroxine [Synthroid 25 mcg 25 mcg PO DAILY06 #30 tab 09/14/17 (*)] Lisinopril [Zestril 5 mg (*)] 5 mg PO DAILY #30 tab 09/14/17 Nitroglycerin [Nitrostat 0.4 mg 0.4 mg SL PRN PRN #1 btl 09/14/17 (*)] Omeprazole 20 mg PO BID #60 capsule.dr 09/14/17 Polyethylene Glycol 3350 [Miralax 17 gm PO BID PRN #30 pkt 09/14/17 17 gm (*)] Prochlorperazine Maleate 10 mg PO TID PRN #30 tab 09/14/17 [Compazine 10mg (*)] Prochlorperazine Maleate [address] BID PRN #14 suppr 09/14/17 [Compazine 25mg supp (*)] Promethazine HCl [Phenergan 12.5mg 12.5 mg PO Q6 PRN #30 tablet 09/14/17 tab] amLODIPine BESYLATE [Norvasc 10 mg 10 mg PO DAILY #30 tab 09/14/17 (*)] traZODone [traZODONE 100MG (*)] 200 mg PO HS #30 tab 09/14/17 Dicyclomine [Bentyl 10 MG (*)] 10 mg PO Q8 PRN #20 cap 09/25/17 Remeron 09/25/17 Medical Decision Making - Diagnostics Imaging Results: Imaging Impressions Abdomen CT 09/25/17 11:47 Impression: 1. Incidental fatty infiltration along the right lateral wall of the right atrium inferiorly. By report, the patient had previous cardiac catheterization procedure and cardiac echo did not mention abnormality in this area. If indicated, consider cardiac MRI or cardiac CT angiogram as clinically directed. 2. No abnormal fluid collections within the gallbladder fossa or elsewhere in the abdomen. Findings discussed with Coy Gonzalez M.D. at 13:12 hour, 09/25/2017. - Data Points Laboratory Results: Laboratory Results 09/25/17 11:37 09/25/17 11:37 09/25/17 09/25/17 09/25/17 11:44 11:37 11:37 WBC RBC Hgb POC Hgb 13.6 gm/dL gm/dL (12.6-16.3) Hct POC Hct 40 % % (38-47) MCV MCH MCHC RDW Plt Count MPV Neut % (Auto) Lymph % (Auto) [place] % (Auto) Eos % (Auto) Baso % (Auto) Nucleat RBC Rel Count Absolute Neuts (auto) Absolute Lymphs (auto) Absolute Monos (auto) Absolute Eos (auto) Absolute Basos (auto) Absolute Nucleated RBC Immature Gran % Immature Gran # POC Sodium 140 mEq/L mEq/L (135-145) Sodium 140 mEq/L mEq/L (135-145) POC Potassium 2.9 mEq/L L mEq/L (3.3-5.0) Potassium 3.2 mEq/L L mEq/L (3.5-5.2) POC Chloride 99 mEq/L mEq/L (97-110) Chloride 98 mEq/L mEq/L (97-110) Carbon Dioxide 24 mEq/l mEq/l (22-31) Anion Gap 18 mEq/L H mEq/L (8-16) POC BUN 14 mg/dL mg/dL (7-23) BUN 16 mg/dL mg/dL (7-23) Creatinine 0.6 mg/dL mg/dL (0.6-1.0) POC Creatinine 0.7 mg/dL mg/dL (0.6-1.0) Estimated GFR > 60 Glucose 122 mg/dL H mg/dL (70-100) POC Glucose 128 mg/dL H mg/dL (70-100) Calcium 9.5 mg/dL mg/dL (8.5-10.4) Total Bilirubin 0.9 mg/dL mg/dL (0.1-1.4) Conjugated Bilirubin 0.6 mg/dL H mg/dL (0.0-0.5) Unconjugated Bilirubin 0.3 mg/dL mg/dL (0.0-1.1) AST 36 IU/L IU/L (14-46) ALT 52 IU/L IU/L (9-52) Alkaline Phosphatase 80 IU/L IU/L (38-126) Total Protein 6.8 g/dL g/dL (6.3-8.2) Albumin 4.3 g/dL g/dL (3.5-5.0) Lipase 107 IU/L IU/L (23-300) Beta HCG, Qual NEGATIVE 09/25/17 11:37 WBC 4.92 10^3/uL 10^3/uL (3.80-9.50) RBC 4.64 10^6/uL 10^6/uL (4.18-5.33) Hgb 14.4 g/dL g/dL (12.6-16.3) POC Hgb Hct 39.6 % % (38.0-47.0) POC Hct MCV 85.3 fL fL (81.5-99.8) MCH 31.0 pg pg (27.9-34.1) MCHC 36.4 g/dL g/dL (32.4-36.7) RDW 11.9 % % (11.5-15.2) Plt Count 189 10^3/uL 10^3/uL (150-400) MPV 10.9 fL fL (8.7-11.7) Neut % (Auto) 52.4 % % (39.3-74.2) Lymph % (Auto) 35.4 % % (15.0-45.0) [place] % (Auto) 11.0 % % (4.5-13.0) Eos % (Auto) 0.6 % % (0.6-7.6) Baso % (Auto) 0.6 % % (0.3-1.7) Nucleat RBC Rel Count 0.0 % % (0.0-0.2) Absolute Neuts (auto) 2.58 10^3/uL 10^3/uL (1.70-6.50) Absolute Lymphs (auto) 1.74 10^3/uL 10^3/uL (1.00-3.00) Absolute Monos (auto) 0.54 10^3/uL 10^3/uL (0.30-0.80) Absolute Eos (auto) 0.03 10^3/uL 10^3/uL (0.03-0.40) Absolute Basos (auto) 0.03 10^3/uL 10^3/uL (0.02-0.10) Absolute Nucleated RBC 0.00 10^3/uL 10^3/uL (0-0.01) Immature Gran % 0.0 % % (0.0-1.1) Immature Gran # 0.00 10^3/uL 10^3/uL (0.00-0.10) POC Sodium Sodium POC Potassium Potassium POC Chloride Chloride Carbon Dioxide Anion Gap POC BUN BUN Creatinine POC Creatinine Estimated GFR Glucose POC Glucose Calcium Total Bilirubin Conjugated Bilirubin Unconjugated Bilirubin AST ALT Alkaline Phosphatase Total Protein Albumin Lipase Beta HCG, Qual Medications Given: Discontinued Medications Dicyclomine HCl (Bentyl) 20 mg PO EDNOW ONE Stop: 09/25/17 13:20 Last Admin: 09/25/17 13:28 Dose: 20 mg Diphenhydramine HCl (Benadryl Injection) 25 mg IVP EDNOW ONE Stop: 09/25/17 13:20 Last Admin: 09/25/17 13:27 Dose: 25 mg Sodium Chloride (Ns) 1,000 mls @ 0 mls/hr IV EDNOW ONE; Wide Open PRN Reason: Protocol Stop: 09/25/17 12:07 Last Admin: 09/25/17 13:28 Dose: 1,000 mls Ondansetron HCl (Zofran) 4 mg IVP EDNOW ONE Stop: 09/25/17 11:28 Last Admin: 09/25/17 13:28 Dose: 4 mg Point of Care Test Results: 09/25/17 11:44 POC Sodium 140 POC Potassium 2.9 L POC Chloride 99 POC BUN 14 POC Creatinine 0.7 POC Glucose 128 H Departure - Departure Disposition: Home, Routine, Self-Care Clinical Impression: Nausea & vomiting Qualifiers: Vomiting type: unspecified Vomiting Intractability: non-intractable Qualified Code(s): R11.2 - Nausea with vomiting, unspecified Condition: Good Instructions: Acute Nausea and Vomiting (ED) Referrals: Swetha Anderson MD [Primary Care Provider] - As per Instructions Prescriptions: Dicyclomine [Bentyl 10 MG (*)] 10 mg PO Q8 PRN #20 cap PRN Reason: abdominal cramping
[2017-09-25] MEDS ORDERED: ONDANSETRON 4 MG/2 ML VIAL IVP ONE (11:27)
[2017-09-25 11:47] LABS: PLATELET COUNT 189 10^3/uL (150-400)
[2017-09-25] MEDS ORDERED: IOPAMIDOL (ISOVUE-300) 100 ML BTL ONE (11:58)
[2017-09-25] MEDS ORDERED: NS 1,000 ML IV ONE ×2 (12:06)
[2017-09-25] MEDS ORDERED: DICYCLOMINE 10 MG CAP PO ONE (13:19)
[2017-09-25 14:28] VITALS: BP 122/74
== END 2017-09-25 14:29 | disposition home or self-care (01) ==
DX: R11.2 Nausea with vomiting, unspecified (principal); E86.9 Volume depletion, unspecified; F17.200 Nicotine dependence, unspecified, uncomplicated; I25.10 Atherosclerotic heart disease of native coronary artery without angina pectoris; I10 Essential (primary) hypertension; Z79.82 Long term (current) use of aspirin
CPT/HCPCS: 82947-QW; 96374; J1200; J2405; Q9967

== ENCOUNTER → 2017-10-07 | Outpatient (CLI) | payer BC | LOC: BMCIMAGING 09:26 | PROVIDERS: ATTEND Psychiatry & Neurology Psychiatry | DX: R11.2 Nausea with vomiting, unspecified (principal); K59.00 Constipation, unspecified ==

== ENCOUNTER 2018-02-17 07:59 | Day surgery (SDC) | payer BC ==
[2018-02-17] MEDS ORDERED: BENZOCAINE UNIT DOSE SPRAY HURRICAINE MM ONE (08:02)
[2018-02-17] MEDS ORDERED: NS 500 ML IV ONE (08:02)
[2018-02-17] MEDS ORDERED: MIDAZOLAM 2 MG/2 ML VIAL IVP ONE (08:02)
[2018-02-17] MEDS ORDERED: fentaNYL 100 MCG/2 ML INJ IVP ONE (08:02)
--- NOTE | 2018-02-17 09:45 | PDANEPAE ---
ANE History of Present Illness 52 year old with AF ANE Past Medical History - Pulmonary History Hx Oxygen in Use at Home: No Hx Sleep Apnea: No - Endocrine History Hx Diabetes: No - Chronic Pain History Chronic Pain: No ANE Review of Systems Review of Systems: ANE Patient History - Allergies Allergies/Adverse Reactions: bee venom protein (honey bee) Allergy (Verified 09/25/17 11:16) - Home Medications Home Medications: Cariprazine HCl [Vraylar] 3 mg PO HS 08/27/17 [Last Taken 02/16/18 21:00] Docusate Sodium [Colace 100 MG (*)] 200 mg PO BID 08/27/17 [Last Taken 02/16/18 21:00] carBAMazepine [Tegretol] 400 mg PO HS 08/27/17 [Last Taken 02/16/18 21:00] clonazePAM [Clonazepam] 1 mg PO HS 08/27/17 [Last Taken 02/16/18 21:00] Remeron 30 mg PO HS 09/25/17 [Last Taken 02/16/18 21:00] Aldactone 12.5 mg PO DAILY 02/17/18 [Last Taken 02/16/18 08:00] Aspirin 81 mg PO DAILY 02/17/18 [Last Taken 02/16/18 08:00] Atorvastatin Calcium 10 mg PO DAILY 02/17/18 [Last Taken 02/16/18 21:00] Clonazepam 1 mg PO DAILY 02/17/18 [Last Taken 02/16/18 08:00] Coreg 6.25 mg PO BID 02/17/18 [Last Taken 02/16/18 21:00] Epipen 0.3 MG 0.3 mg IM PRN MDD 0.3 mg 02/17/18 [Last Taken Unknown] Gabapentin 3,200 mg PO HS 02/17/18 [Last Taken 02/16/18 21:00] Gabapentin 300 mg PO HS PRN 02/17/18 [Last Taken 02/16/18 21:00] Lasix 40 mg PO DAILY 02/17/18 [Last Taken 02/16/18 08:00] Lisinopril [Zestril 5 mg (*)] 10 mg PO DAILY 02/17/18 [Last Taken 02/16/18 08:00 ] Omeprazole 40 mg PO DAILY 02/17/18 [Last Taken 02/16/18 08:00] - Smoking Hx Smoking Status: Current some day smoker ANE Labs/Vital Signs - Vital Signs Height: 163 cm Weight: 103 kg ANE Physical Exam - Airway Mallampati Score: Class 2 - Pulmonary Pulmonary: no respiratory distress - Cardiovascular Cardiovascular: regular rate and rhythym - ASA Status ASA Status: II ANE Anesthesia Plan Anesthesia Plan: MAC
[2018-02-17] MEDS ORDERED: LIDOCAINE 2% 2 ML INJ ONE (09:46)
[2018-02-17] MEDS ORDERED: PROPOFOL 200 MG/20 ML VIAL ONE (09:46)
--- NOTE | 2018-02-17 09:51 | PDHPUP ---
History & Physical Update H&P update statement: This history and physical update is based on an assessment of the patient which was completed after admission or registration (within 24 hours), but prior to the surgery/procedure. H&P update: H&P reviewed & patient examined, no change in patient's condition since H&P completed
--- NOTE | 2018-02-17 10:17 | POSTANESTH ---
Post Anesthetic Evaluation Cardiovascular Status: Normal, Stable Respiratory Status: Normal, Stable Level of Consciousness/Mental Status: Can Participate in Eval, Mildly Sleepy, Arousable Pain Control: Adequate, Prn Tx Ordered Nausea/Vomiting Control: Adequate, Prn Tx Ordered Complications Possibly Related to Anesthesia: None Noted
[2018-02-17 11:03] VITALS: BP 111/60
--- NOTE | 2018-02-17 11:03 | ECHO ---
[email or web address] [address] [address] Main: [phone] Fax: Transesophageal Echocardiography Name: LIDA ELIZABETH MR#: [id number] Study Date: 02/17/2018 Study Time: 09:31 AM Date of : 1965 Age: 52 year(s) Height: ( ) Weight: ( ) BSA: Gender: Female Examination: CARMEN Indication: RA Myxoma Image Quality: Adequate Contrast: Requested by: Raysahwn Cardenas Heart Rate: Rhythm: BP: 101 mmHg/60 mmHg Procedure Staff Surgical Appliance Fitter: Belgica Saldana [facility] Reading Physician: Rayshawn Cardenas MD Requesting Provider: Glen Muse NP CARMEN Exam Details Patient Consent: Risks, alternatives of procedure explained to patient, informed consent obtained. Conclusions: Normal size left ventricle. Normal global systolic LV function. No regional wall motion abnormality. Normal size right ventricle. Normal RV function. An agitated saline study was performed and was positive for intracardiac shunting. Normal appearing valvular structures. Mild mitral valve regurgitation is present. Mild tricuspid regurgitation is present. No pericardial effusion. No significant change compared to transthoracic echo of 01/30/2018. Measurements: Chambers Valvular Assessment AV/MV Valvular Assessment TV/PV Normal Normal Normal Name Value Range Name Value Range Name Value Range Additional Measurements: Findings: Left Ventricle: Normal size left ventricle. Normal global systolic LV function. No regional wall motion abnormality. Patient: LIDA ELIZABETH Study Date: 02/17/2018 Page 1 of 2 09:31 AM Right Ventricle: Normal size right ventricle. Normal RV function. Left Atrium: An agitated saline study was performed and was positive for intracardiac shunting. Right Atrium: There is a large, tissue-density mass along the interatrial septum and posterior aspect of the right atrium.. Mitral Valve: The mitral valve is normal in appearance and function. Mild mitral valve regurgitation is present. Aortic Valve: The aortic valve is tri-leaflet. There is no significant aortic valve regurgitation. No aortic valve stenosis is present. Tricuspid Valve: The tricuspid valve is normal in appearance and function. Mild tricuspid regurgitation is present. Pulmonic Valve: The pulmonic valve is normal in appearance and function. Aorta: The aorta is normal. Pericardium: No pericardial effusion. No pleural effusion. l1n (No Signature Object) Patient: LIDA ELIZABETH Study Date: 02/17/2018 Page 2 of 2 09:31 AM [id number]
--- NOTE | 2018-02-17 12:44 | PDGENHP ---
History & Physical Chief Complaint: Right atrial mass History of Present Illness: 52 y/o F with h/o CAD and cardiomyopathy. Recent TTE to assess for improvement in LVEF demonstrated a right atrial mass. No symptoms. Pertinent Past, Social, Family History: Detailed in the office note of 12/21/2017 which is on the chart. Relevant Physical Exam: A&O x 3. RRR w/o murmur. Lungs CTA. No edema.
== END 2018-02-17 11:29 | disposition home or self-care (01) ==
LOC: FCATH 07:59
PROVIDERS: ATTEND Internal Medicine Interventional Cardiology
PROC: B246ZZ4 Ultrasonography of Right and Left Heart, Transesophageal (ICD-10-PCS; principal; 2018-02-17)
DX: R93.1 Abnormal findings on diagnostic imaging of heart and coronary circulation (principal); I25.5 Ischemic cardiomyopathy; I25.10 Atherosclerotic heart disease of native coronary artery without angina pectoris; F17.200 Nicotine dependence, unspecified, uncomplicated
CPT/HCPCS: J2704; J3010

== ENCOUNTER → 2018-03-03 | Outpatient (CLI) | payer BC ==
[~2018-03-03] MED LIST: GADOBUTROL 10 ML VIAL IVP ONE
== END ==
LOC: FIMAGING 12:11
PROVIDERS: ATTEND Nurse Practitioner Family
DX: D17.9 Benign lipomatous neoplasm, unspecified (principal)
CPT/HCPCS: A9585

== ENCOUNTER → 2018-06-06 | Outpatient (CLI) | payer BC | LOC: BMCIMAGING 13:33 | PROVIDERS: ATTEND Physician Assistant | DX: M25.561 Pain in right knee (principal); M25.562 Pain in left knee; M22.2X1 Patellofemoral disorders, right knee; M22.2X2 Patellofemoral disorders, left knee ==